=== PATIENT | male | born 1955 | race Caucasian/White ===

== ENCOUNTER 2021-01-15 00:51 | Inpatient (IN) ==
--- NOTE | 2021-01-15 01:37 | Emergency Department Note ---
Impression & Plan Hypoxia, Pneumonia due to 2019 novel coronavirus, Hyperglycemia due to diabetes mellitus Admit to the [facility] service ED Provider Note NAME: AFIA SORIANO AGE: 65 SEX: M ARRIVES VIA: Ambulance INFORMANT: Patient ED PROVIDER(S): Lou Marie DO CHIEF COMPLAINT: Shortness of breath and weakness PLAN: Disposition: Admit to the [facility] service Condition: Guarded MEDICAL DECISION MAKING: This is a 65-year-old male patient who had increasing shortness of breath, weight loss and weakness over the past 1 week. Patient's daughter and granddaughter are diagnosed with Covid. He is unvaccinated. The patient has bilateral pneumonias consistent with a viral pneumonia. He is Covid positive. He is hypoxic. Patient was given IV Decadron Triage Nursing notes reviewed and agree with them. Prior medical records reviewed Vital Signs: reviewed and remarkable for hypoxia and hypertension and tachycar gladys Differential diagnosis: Pneumonia, COVID-19, respiratory failure ER treatment provided: Oral Tylenol IV Decadron IV insulin Diagnostics interpreted by me: ECG: Normal sinus rhythm at [address] segment elevation or signs of ischemia. There is no ectopy. Cardiac Monitoring: Sinus tachycardia at 102 Laboratory studies: See below Imaging studies: As per my interpretation Portable chest x-ray: Bilateral patchy infiltrates consistent with Covid pneumonia HPI: 65/M arrives for evaluation of shortness of breath and weakness. The patient describes worsening symptoms over the past 1 week. His daughter and granddaughter had been diagnosed with COVID-19. He is unvaccinated. Patient describes developing a fever, chills and a cough 3 days ago he has had increasing body aches, weakness and shakiness. He had nausea and vomiting with decreased oral intake and a weight loss of 15 pounds over the past 7 to 10 days. ROS: See above HPI for pertinent positives & negatives. A total of 10 systems reviewed and were otherwise negative. PAST MEDICAL HISTORY:[id number] diabetes and hypertension PAST SURGICAL HISTORY:See Below FAMILY HISTORY:See Below SOCIAL HISTORY:Lives with his , daughter and granddaughter HOME MEDICATIONS:See list ALLERGIES:None VITALS:See Below PHYSICAL EXAMINATION: HEENT: Head - normocephalic and atraumatic. Pupils are equal, round, and reactive to light. Extraocular eye muscles are intact, and sclera are anicteric. Nose - moist nasal mucosa without discharge. Mouth - moist buccal mucosa. Oropharynx is nonerythematous and there is no tonsillar exudate or saravanan a noted. Neck: Supple; no JVD, nuchal rigidity, cervical lymphadenopathy, or auscultated bruits. Heart: Tachycardic rate and regular rhythm. There is a normal S1 and S2 with no murmurs, clicks, or gallops appreciated. Lungs: Diminished breath sounds at both bases with no wheezing Abdomen: Soft, completely nontender, nondistended, with good bowel sounds. There are no palpable pulsatile masses or hepatosplenomegaly. There is no guarding, rigidity, or rebound noted. Extremities: No evidence of cyanosis, clubbing, or edema. There are easily palpable peripheral pulses. Skin: Hot to the touch; he has a scabbed over lesion on the left distal tib-fib area with some surrounding erythema ED COURSE: Times/Reassessments: 0105: The patient was evaluated in room A 9. I donned complete PPE as there was concern for COVID-19. A septic protocol was performed. Laboratory studies were drawn as above. The patient was placed on supplemental oxygen as his O2 saturation was only 84% on room air. A portable chest x-ray was performed as described above. The patient was given Tylenol by mouth for his fever. An order was placed for continuous cardiac monitoring. Patient was in sinus tachycardia at 102. A twelve-lead EKG was obtained. The patient was given 10 mg of IV Decadron. The patient was significantly hyperglycemic and given 10 units of IV insulin. I have personally spent greater than 60 minutes of critical care time in the direct management of this patient. This includes bedside care, interpretation of diagnostic studies, and testing, discussion with consultants, patient, and family members, and other required patient management activities. This 60 minutes is in excess of all separately billable procedures. Lou Marie DO Past Med/Surg History Medical History (Updated 01/17/21 @ 15:07 by Lou Marie DO) Diabetes mellitus Hypertension Morbid obesity with BMI of 40.0-44.9, adult Social History Smoking Status: Former smoker Hx Alcohol Use: No Hx Substance Use: No Preferred Language: Maori Communication Ability: Effective Carriage Setter Required: No Beliefs That Will Affect Care: None marital status: Current Living Situation: Spouse Feels Safe at Home: Yes Assistive Devices: Oxygen - Continuous Allergies Allergies Allergy/AdvReac Type Severity Reaction Status Date / Time Unable to Assess Allergy Unverified 01/15/21 01:56 Home Meds Home Medications Medication Instructions Recorded Confirmed amlodipine 5 mg tablet 5 mg PO DAILY 01/15/21 01/15/21 empagliflozin 25 mg tablet 25 mg PO DAILY 01/15/21 01/15/21 (Jardiance) lisinopril 40 mg tablet 40 mg PO DAILY 01/15/21 01/15/21 metformin 500 mg tablet,extended 1,000 mg PO DAILY 01/15/21 01/15/21 release 24 hr Results & Data (ED) Vital Signs Vital Signs - 24 hr 01/15/21 00:57 01/15/21 01:21 01/15/21 01:30 Temperature 37.4 C Temperature Source Oral Pulse Rate 102 H 96 H 93 H Pulse Rate [Right Finger] Pulse Rate from SpO2 Sensor 95 H 94 H Respiratory Rate 24 23 25 H Respiratory Effort / Characteristics Spontaneous Grunting Labored Respiratory Depth Deep Respiratory Pattern Regular Blood Pressure 150/71 H 161/81 H Blood Pressure [Right Arm] Blood Pressure Mean 97 107 Blood Pressure Mean [Right Arm] Blood Pressure Position [Right Arm] Pulse Oximetry 84 L 93 93 Oxygen Delivery Method Room Air Oxygen Flow Rate Sepsis Recent Fever Within 48 Hours No Sepsis New/Unexplained Change in Mental Status No Sepsis Action Taken by Nursing No Action Required Oxygen Flow Rate - Titration Pulse Oximetry Post Tiitration 01/15/21 01:36 01/15/21 01:37 01/15/21 02:00 Temperature Temperature Source Pulse Rate 97 H Pulse Rate [Right Finger] Pulse Rate from SpO2 Sensor 97 H Respiratory Rate 29 H Respiratory Effort / Characteristics Spontaneous Labored Respiratory Depth Respiratory Pattern Blood Pressure Blood Pressure [Right Arm] Blood Pressure Mean Blood Pressure Mean [Right Arm] Blood Pressure Position [Right Arm] Pulse Oximetry 90 Oxygen Delivery Method Nasal Cannula Nasal Cannula Oxygen Flow Rate 0 4 4 Sepsis Recent Fever Within 48 Hours Sepsis New/Unexplained Change in Mental Status Sepsis Action Taken by Nursing Oxygen Flow Rate - Titration 4 Pulse Oximetry Post Tiitration 95 01/15/21 02:30 01/15/21 02:54 01/15/21 03:00 Temperature Temperature Source Pulse Rate 90 94 H Pulse Rate [Right Finger] Pulse Rate from SpO2 Sensor 87 93 H Respiratory Rate 31 H 24 Respiratory Effort / Characteristics Spontaneous Labored Respiratory Depth Respiratory Pattern Blood Pressure 159/80 H 141/74 H Blood Pressure [Right Arm] Blood Pressure Mean 106 96 Blood Pressure Mean [Right Arm] Blood Pressure Position [Right Arm] Pulse Oximetry 89 L 93 Oxygen Delivery Method Nasal Cannula Oxygen Flow Rate 4 5 5 Sepsis Recent Fever Within 48 Hours Sepsis New/Unexplained Change in Mental Status Sepsis Action Taken by Nursing Oxygen Flow Rate - Titration Pulse Oximetry Post Tiitration 01/15/21 03:20 01/15/21 03:30 01/15/21 04:00 Temperature Temperature Source Pulse Rate 95 H 93 H Pulse Rate [Right Finger] Pulse Rate from SpO2 Sensor 95 H 93 H Respiratory Rate 34 H 30 H Respiratory Effort / Characteristics Spontaneous Labored Respiratory Depth Respiratory Pattern Blood Pressure 155/82 H 163/91 H Blood Pressure [Right Arm] Blood Pressure Mean 106 115 Blood Pressure Mean [Right Arm] Blood Pressure Position [Right Arm] Pulse Oximetry 89 L 90 Oxygen Delivery Method Nasal Cannula Oxygen Flow Rate 5 Sepsis Recent Fever Within 48 Hours Sepsis New/Unexplained Change in Mental Status Sepsis Action Taken by Nursing Oxygen Flow Rate - Titration Pulse Oximetry Post Tiitration 01/15/21 04:30 01/15/21 05:00 01/15/21 05:30 Temperature Temperature Source Pulse Rate 91 H 98 H 96 H Pulse Rate [Right Finger] 90 Pulse Rate from SpO2 Sensor 92 H 98 H 68 Respiratory Rate 25 H 30 H 29 H Respiratory Effort / Characteristics Respiratory Depth Respiratory Pattern Blood Pressure 176/87 H 175/91 H 153/78 H Blood Pressure [Right Arm] 170/86 H Blood Pressure Mean 116 119 103 Blood Pressure Mean [Right Arm] 114 Blood Pressure Position [Right Arm] Lying Pulse Oximetry 91 90 92 Oxygen Delivery Method Oxymask Oxygen Flow Rate 7 Sepsis Recent Fever Within 48 Hours Sepsis New/Unexplained Change in Mental Status Sepsis Action Taken by Nursing Oxygen Flow Rate - Titration Pulse Oximetry Post Tiitration Laboratory Data Result diagrams: 01/17/21 06:21 01/17/21 06:21 Lab Results 01/15/21 01/15/21 01/15/21 Range/Units 01:09 01:09 01:09 WBC 5.54 (4.8-10.8) K/uL RBC 5.16 (4.7-6.1) M/uL Hgb 15.1 (14.0-18.0) g/dL Hct 45.5 (42-52) % MCV 88.2 (80-100) fL MCH 29.3 (25-34) pg MCHC 33.2 (32-36) g/dL RDW Std Deviation 45.5 (36.4-46.3) fL RDW Coeff of Carmela 14.0 (11.5-14.5) % Plt Count 171 (130-400) K/uL MPV 9.5 (7.4-10.4) fL Immature Gran % (Auto) 0.2 % Neut % (Auto) 75.4 % Lymph % (Auto) 10.5 % [place] % (Auto) 13.7 % Eos % (Auto) 0.0 % Baso % (Auto) 0.2 % Neut # (Auto) 4.18 (1.4-6.5) K/uL Lymph # (Auto) 0.58 L (1.2-3.4) K/uL [place] # (Auto) 0.76 H (0.11-0.59) K/uL Eos # (Auto) 0.00 (0-0.5) K/uL Baso # (Auto) 0.01 (0-0.2) K/uL Immature Gran # (Auto) 0.01 (0.00-0.02) K/uL PT 9.4 (9.0-12.0) Seconds INR 0.9 (0.9-1.1) APTT 29.5 (21.0-31.0) Seconds PTT Ratio 1.1 Sodium 136 (136-145) mmol/L Potassium 3.9 (3.5-5.1) mmol/L Chloride 104 (98-107) mmol/L Carbon Dioxide 25 (21-32) mmol/L Anion Gap 7.0 (3-11) BUN 33 H (7-18) mg/dl Creatinine 1.12 (0.6-1.4) mg/dl Est Cr Clr Drug Dosing 84.1 ml/min Est GFR ( Amer) 79.5 ml/min Est GFR (Non-Af Amer) 68.6 ml/min BUN/Creatinine Ratio 29.8 H (10-20) Glucose 329 H* (70-99) mg/dl POC Glucose (70-99) mg/dl Lactate (0.4-2.0) mmol/L Calcium 9.0 (8.5-10.1) mg/dl Magnesium 2.2 (1.8-2.4) mg/dl Total Bilirubin 0.4 (0.2-1) mg/dl AST 37 (15-37) U/L ALT 31 (12-78) U/L Alkaline Phosphatase 77 (45-117) U/L Troponin I < 0.015 (0-0.045) ng/ml Total Protein 7.6 (6.4-8.2) gm/dl Albumin 3.2 L (3.4-5.0) gm/dl Globulin 4.4 H (2.5-4.0) gm/dl Albumin/Globulin Ratio 0.7 L (0.9-2) Beta-Hydroxybutyric Acd (0.2-2.81) mg/dl COVID-19 Eval Order SARS-CoV-2 (PCR) (Negative) 01/15/21 01/15/21 01/15/21 Range/Units 01:37 01:37 03:05 WBC (4.8-10.8) K/uL RBC (4.7-6.1) M/uL Hgb (14.0-18.0) g/dL Hct (42-52) % MCV (80-100) fL MCH (25-34) pg MCHC (32-36) g/dL RDW Std Deviation (36.4-46.3) fL RDW Coeff of Carmela (11.5-14.5) % Plt Count (130-400) K/uL MPV (7.4-10.4) fL Immature Gran % (Auto) % Neut % (Auto) % Lymph % (Auto) % [place] % (Auto) % Eos % (Auto) % Baso % (Auto) % Neut # (Auto) (1.4-6.5) K/uL Lymph # (Auto) (1.2-3.4) K/uL [place] # (Auto) (0.11-0.59) K/uL Eos # (Auto) (0-0.5) K/uL Baso # (Auto) (0-0.2) K/uL Immature Gran # (Auto) (0.00-0.02) K/uL PT (9.0-12.0) Seconds INR (0.9-1.1) APTT (21.0-31.0) Seconds PTT Ratio Sodium (136-145) mmol/L Potassium (3.5-5.1) mmol/L Chloride (98-107) mmol/L Carbon Dioxide (21-32) mmol/L Anion Gap (3-11) BUN (7-18) mg/dl Creatinine (0.6-1.4) mg/dl Est Cr Clr Drug Dosing ml/min Est GFR ( Amer) ml/min Est GFR (Non-Af Amer) ml/min BUN/Creatinine Ratio (10-20) Glucose (70-99) mg/dl POC Glucose (70-99) mg/dl Lactate 1.6 (0.4-2.0) mmol/L Calcium (8.5-10.1) mg/dl Magnesium (1.8-2.4) mg/dl Total Bilirubin (0.2-1) mg/dl AST (15-37) U/L ALT (12-78) U/L Alkaline Phosphatase (45-117) U/L Troponin I (0-0.045) ng/ml Total Protein (6.4-8.2) gm/dl Albumin (3.4-5.0) gm/dl Globulin (2.5-4.0) gm/dl Albumin/Globulin Ratio (0.9-2) Beta-Hydroxybutyric Acd (0.2-2.81) mg/dl COVID-19 Eval Order Covid19 at [facility] SARS-CoV-2 (PCR) POSITIVE A* (Negative) 01/15/21 Range/Units 05:32 WBC (4.8-10.8) K/uL RBC (4.7-6.1) M/uL Hgb (14.0-18.0) g/dL Hct (42-52) % MCV (80-100) fL MCH (25-34) pg MCHC (32-36) g/dL RDW Std Deviation (36.4-46.3) fL RDW Coeff of Carmela (11.5-14.5) % Plt Count (130-400) K/uL MPV (7.4-10.4) fL Immature Gran % (Auto) % Neut % (Auto) % Lymph % (Auto) % [place] % (Auto) % Eos % (Auto) % Baso % (Auto) % Neut # (Auto) (1.4-6.5) K/uL Lymph # (Auto) (1.2-3.4) K/uL [place] # (Auto) (0.11-0.59) K/uL Eos # (Auto) (0-0.5) K/uL Baso # (Auto) (0-0.2) K/uL Immature Gran # (Auto) (0.00-0.02) K/uL PT (9.0-12.0) Seconds INR (0.9-1.1) APTT (21.0-31.0) Seconds PTT Ratio Sodium (136-145) mmol/L Potassium (3.5-5.1) mmol/L Chloride (98-107) mmol/L Carbon Dioxide (21-32) mmol/L Anion Gap (3-11) BUN (7-18) mg/dl Creatinine (0.6-1.4) mg/dl Est Cr Clr Drug Dosing ml/min Est GFR ( Amer) ml/min Est GFR (Non-Af Amer) ml/min BUN/Creatinine Ratio (10-20) Glucose (70-99) mg/dl POC Glucose 193 H (70-99) mg/dl Lactate (0.4-2.0) mmol/L Calcium (8.5-10.1) mg/dl Magnesium (1.8-2.4) mg/dl Total Bilirubin (0.2-1) mg/dl AST (15-37) U/L ALT (12-78) U/L Alkaline Phosphatase (45-117) U/L Troponin I (0-0.045) ng/ml Total Protein (6.4-8.2) gm/dl Albumin (3.4-5.0) gm/dl Globulin (2.5-4.0) gm/dl Albumin/Globulin Ratio (0.9-2) Beta-Hydroxybutyric Acd (0.2-2.81) mg/dl COVID-19 Eval Order SARS-CoV-2 (PCR) (Negative) Administered Medications Amlodipine Besylate (Amlodipine Besylate 5 Mg Tab) 5 mg PO DAILY LEIF Stop: 02/16/21 08:59 Last Admin: 01/17/21 08:34 Dose: 5 mg Documented by: [id number] Benzonatate (Benzonatate 100 Mg Capsule) 100 mg PO TID LEIF Stop: 02/14/21 20:59 Last Admin: 01/17/21 12:29 Dose: 100 mg Documented by: [id number] Admin: 01/17/21 08:34 Dose: 100 mg Documented by: [id number] Admin: 01/16/21 20:12 Dose: 100 mg Documented by: [id number] Admin: 01/16/21 13:41 Dose: 100 mg Documented by: [id number] Admin: 01/16/21 08:41 Dose: 100 mg Documented by: [id number] Admin: 01/15/21 21:25 Dose: 100 mg Documented by: [id number] Enoxaparin Sodium (Enoxaparin Inj 60 Mg/0.6 Ml Syr) 60 mg SQ Q12H LEIF Stop: 02/14/21 08:59 Last Admin: 01/17/21 08:35 Dose: 60 mg Documented by: [id number] Admin: 01/16/21 20:12 Dose: 60 mg Documented by: [id number] Admin: 01/16/21 08:41 Dose: 60 mg Documented by: [id number] Admin: 01/15/21 20:26 Dose: 60 mg Documented by: [id number] Admin: 01/15/21 09:58 Dose: 60 mg Documented by: [id number] Guaifenesin (Guaifenesin 600 Mg Tabcr) 1,200 mg PO Q12 LEIF Stop: 02/14/21 08:59 Last Admin: 01/17/21 08:35 Dose: 1,200 mg Documented by: [id number] Admin: 01/16/21 20:11 Dose: 1,200 mg Documented by: [id number] Admin: 01/16/21 08:42 Dose: 1,200 mg Documented by: [id number] Admin: 01/15/21 20:25 Dose: 1,200 mg Documented by: [id number] Admin: 01/15/21 09:59 Dose: 1,200 mg Documented by: [id number] Dexamethasone 6 mg/ Syringe 1.5 mls @ 1 mls/min IV Q24H LEIF Stop: 02/15/21 03:59 Last Admin: 01/17/21 03:08 Dose: 1 mls/min Documented by: [id number] Admin: 01/16/21 04:16 Dose: 1 mls/min Documented by: [id number] Azithromycin 500 mg/ Dextrose 255 mls @ 125 mls/hr IV Q24H LEIF Stop: 01/22/21 08:59 Last Infusion: 01/17/21 13:09 Dose: 0 mls/hr Documented by: [id number] Admin: 01/17/21 10:48 Dose: 125 mls/hr Documented by: [id number] Infusion: 01/16/21 12:14 Dose: 0 mls/hr Documented by: [id number] Admin: 01/16/21 09:55 Dose: 125 mls/hr Documented by: [id number] Infusion: 01/15/21 13:28 Dose: 0 mls/hr Documented by: [id number] Admin: 01/15/21 10:47 Dose: 125 mls/hr Documented by: [id number] Ceftriaxone Sodium 2,000 mg/ (Dextrose) 70 mls @ 100 mls/hr IV DAILY LEIF; Protocol Stop: 01/22/21 08:59 Last Infusion: 01/17/21 09:41 Dose: 0 mls/hr Documented by: [id number] Admin: 01/17/21 08:33 Dose: 100 mls/hr Documented by: [id number] Infusion: 01/16/21 09:43 Dose: 0 mls/hr Documented by: [id number] Admin: 01/16/21 08:55 Dose: 100 mls/hr Documented by: [id number] Infusion: 01/15/21 10:46 Dose: 0 mls/hr Documented by: [id number] Admin: 01/15/21 09:57 Dose: 100 mls/hr Documented by: [id number] Remdesivir 100 mg/ Sodium (Chloride) 250 mls @ 250 mls/hr IV Q24H LEIF; Protocol Stop: 01/19/21 12:59 Last Infusion: 01/17/21 13:58 Dose: 0 mls/hr Documented by: [id number] Admin: 01/17/21 12:30 Dose: 250 mls/hr Documented by: [id number] Infusion: 01/16/21 13:42 Dose: 0 mls/hr Documented by: [id number] Admin: 01/16/21 12:14 Dose: 250 mls/hr Documented by: [id number] Insulin Aspart (Insulin Aspart 100 Units/Ml 3 Ml Pen) 0 units SC ACHS LEIF Stop: 02/14/21 08:39 Last Admin: 01/17/21 12:28 Dose: 12 units Documented by: [id number] Cosigned by: [id number] Admin: 01/17/21 08:36 Dose: Not Given Documented by: [id number] Admin: 01/16/21 21:14 Dose: 3 units Documented by: [id number] Cosigned by: [id number] Admin: 01/16/21 18:05 Dose: 6 units Documented by: [id number] Cosigned by: [id number] Admin: 01/16/21 12:57 Dose: 8 units Documented by: [id number] Cosigned by: [id number] Admin: 01/16/21 08:40 Dose: 6 units Documented by: [id number] Cosigned by: [id number] Admin: 01/15/21 20:17 Dose: 2 units Documented by: [id number] Cosigned by: [id number] Admin: 01/15/21 17:51 Dose: 6 units Documented by: [id number] Cosigned by: [id number] Admin: 01/15/21 13:30 Dose: 9 units Documented by: [id number] Cosigned by: [id number] Admin: 01/15/21 09:55 Dose: 8 units Documented by: [id number] Cosigned by: [id number] Insulin Glargine (Insulin Glargine Solostar 100 Units/Ml 3 Ml Pen) 15 units SC BID LEIF Stop: 02/14/21 11:29 Last Admin: 01/17/21 08:37 Dose: 15 units Documented by: [id number] Cosigned by: [id number] Admin: 01/16/21 21:14 Dose: 15 units Documented by: [id number] Cosigned by: [id number] Admin: 01/16/21 08:42 Dose: 15 units Documented by: [id number] Cosigned by: [id number] Admin: 01/15/21 20:18 Dose: 15 units Documented by: [id number] Cosigned by: [id number] Admin: 01/15/21 13:29 Dose: 15 units Documented by: [id number] Cosigned by: [id number] Lisinopril (Lisinopril 40 Mg Tab) 40 mg PO DAILY LEIF Stop: 02/14/21 08:59 Last Admin: 01/17/21 08:34 Dose: 40 mg Documented by: [id number] Admin: 01/16/21 08:44 Dose: 40 mg Documented by: [id number] Admin: 01/15/21 09:59 Dose: 40 mg Documented by: [id number] Sodium Chloride (Sodium Chloride 0.9% 10ml Flush) 30 ml IV DAILY@0800 [facility] Stop: 01/19/21 08:01 Last Admin: 01/17/21 08:36 Dose: 30 ml Documented by: [id number] Admin: 01/16/21 08:55 Dose: 30 ml Documented by: [id number] Admin: 01/15/21 20:11 Dose: Not Given Documented by: [id number] Sodium Chloride (Sodium Chloride 0.9% 10ml Flush) 30 ml IV Q24H [facility] Stop: 01/20/21 12:01 Last Admin: 01/17/21 12:30 Dose: 30 ml Documented by: [id number] Admin: 01/16/21 12:57 Dose: 30 ml Documented by: [id number] Vitamin D (Cholecalciferol 1,000 Units 25 Mcg Tab) 5,[address] [facility] Stop: 02/14/21 08:59 Last Admin: 01/17/21 08:34 Dose: 5,000 units Documented by: [id number] Admin: 01/16/21 08:41 Dose: 5,000 units Documented by: [id number] Admin: 01/15/21 09:57 Dose: 5,000 units Documented by: [id number] Zinc Sulfate (Zinc Sulfate 220 Mg Capsule) [address] [facility] Stop: 02/14/21 08:59 Last Admin: 01/17/21 08:34 Dose: 220 mg Documented by: [id number] Admin: 01/16/21 08:44 Dose: 220 mg Documented by: [id number] Admin: 01/15/21 10:00 Dose: 220 mg Documented by: [id number] Discontinued Medications Acetaminophen (Acetaminophen 500 Mg Tab) 1,000 mg PO NOW STA Stop: 01/15/21 07:52 Last Admin: 01/15/21 08:06 Dose: 1,000 mg Documented by: [id number] Albuterol (Albuterol Hfa 8 Gm Inhaler) 2 puffs INH QID [facility] Stop: 02/14/21 08:59 Last Admin: 01/15/21 09:58 Dose: Not Given Documented by: [id number] Dexamethasone (Dexamethasone Sod Inj 4 Mg/Ml Vial) 10 mg IV NOW STA Stop: 01/15/21 04:03 Last Admin: 01/15/21 04:32 Dose: 10 mg Documented by: [id number] Diltiazem HCl (Diltiazem Hcl 30 Mg Tab) 30 mg PO QID [facility] Stop: 02/14/21 08:59 Last Admin: 01/15/21 14:17 Dose: Not Given Documented by: [id number] Admin: 01/15/21 09:58 Dose: 30 mg Documented by: [id number] Remdesivir 200 mg/ Sodium (Chloride) 250 mls @ 125 mls/hr IV ONE STA; Protocol Stop: 01/15/21 07:32 Last Infusion: 01/15/21 10:11 Dose: 0 mls/hr Documented by: [id number] Admin: 01/15/21 06:13 Dose: 125 mls/hr Documented by: [id number] Potassium Chloride/Sodium Chloride (Normal Saline W/20 Meq Kcl) 20 meq in 1,000 mls @ 60 mls/hr IV .[id number] [facility] Stop: 02/14/21 08:59 Last Infusion: 01/16/21 12:14 Dose: 0 mls/hr Documented by: [id number] Admin: 01/16/21 01:57 Dose: 60 mls/hr Documented by: [id number] Infusion: 01/16/21 01:57 Dose: 60 mls/hr Documented by: [id number] Admin: 01/15/21 10:01 Dose: 60 mls/hr Documented by: [id number] Furosemide 20 mg/ Syringe 2 mls @ 4 mls/min IV ONE ONE Stop: 01/17/21 08:31 Last Admin: 01/17/21 10:48 Dose: 4 mls/min Documented by: [id number] Insulin Human Regular (Novolin-R Insulin Per Unit Charge) 10 units IV NOW STA Stop: 01/15/21 04:36 Last Admin: 01/15/21 04:59 Dose: 10 units Documented by: [id number] Cosigned by: [id number] Menthol (Cough Drop (Sugar Free) Checo 24 Checo/1 Box) Confirm Administered Dose 24 checo BUCCAL .STK-MED ONE Stop: 01/16/21 16:28 Last Admin: 01/16/21 16:39 Dose: 24 checo Documented by: [id number] Menthol (Cough Drop (Sugar Free) Checo 24 Checo/1 Box) 1 checo BUCCAL NOW STA Stop: 01/17/21 03:20 Last Admin: 01/17/21 03:25 Dose: 1 checo Documented by: [id number] Imaging Data Radiologist's Impression: Chest X-Ray 01/15/21 01:29 XR chest 1V portable HISTORY: SEPSIS COMPARISON: None. FINDINGS: There are low lung volumes. The heart is normal in size. There scattered patchy bilateral airspace opacities. There is mild interstitial thickening. No pleural effusions. No pneumothorax. IMPRESSION: Scattered patchy bilateral airspace opacities. This favors a viral pneumonia. ACT 112: Negative or not required by law. Electronically signed by: Hugh Love M.D. 01/15/2021 8:01 AM Discharge Plan Visit Data Chief Complaint: Shortness of Breath/Dyspnea Stated Complaint: SOB,FEVER,CHILLS ED Provider: Lou Marie Discharge Problem: Hypoxia, Pneumonia due to 2019 novel coronavirus, Hyperglycemia due to diabetes mellitus Patient Disposition: Admitted As Inpatient Discharge Instructions Interventions: ED Discharge Assessment Last Done: 01/15/21 08:08
[2021-01-15 01:59] LABS: Basophils # (auto) 0.01 K/uL (0-0.2); Basophils % (auto) 0.2 %; Hematocrit (blood only) 45.5 % (42-52); Hemoglobin 15.1 g/dL (14.0-18.0); Immature Granulocytes # (auto) 0.01 K/uL (0.00-0.02); Immature Granulocytes % (auto) 0.2 %; Lymphocytes # (auto) 0.58 K/uL (1.2-3.4); Lymphocytes % (auto) 10.5 %; Mean Corpuscular Hemoglobin 29.3 pg (25-34); Mean Corpuscular Hgb Conc 33.2 g/dL (32-36); Mean Corpuscular Volume 88.2 fL (80-100); Mean Platelet Volume 9.5 fL (7.4-10.4); Monocytes # (auto) 0.76 K/uL (0.11-0.59); Monocytes % (auto) 13.7 %; Neutrophils # (auto) 4.18 K/uL (1.4-6.5); Neutrophils % (auto) 75.4 %; Platelet Count 171 K/uL (130-400); RDW Standard Deviation 45.5 fL (36.4-46.3); Red Blood Count 5.16 M/uL (4.7-6.1); White Blood Count 5.54 K/uL (4.8-10.8)
[2021-01-15 02:16] LABS: INR 0.9 (0.9-1.1); Partial Thromboplastin Ratio 1.1; Partial Thromboplastin Time 29.5 Seconds (21.0-31.0); Prothrombin Time 9.4 Seconds (9.0-12.0)
[2021-01-15 02:34] LABS: Alanine Aminotransferase 31 U/L (12-78); Albumin Globulin Ratio 0.7 (0.9-2); Albumin Level 3.2 gm/dl (3.4-5.0); Alkaline Phosphatase 77 U/L (45-117); Aspartate Aminotransferase 37 U/L (15-37); BUN Creatinine Ratio 29.8 (10-20); Bilirubin,Total 0.4 mg/dl (0.2-1); Blood Urea Nitrogen 33 mg/dl (7-18); Carbon Dioxide 25 mmol/L (21-32); Chloride 104 mmol/L (98-107); Creatinine Clr Calc Pharmacy 84.1 ml/min; Est GFR (African American) 79.5 ml/min; Est GFR (Non-African American) 68.6 ml/min; Globulin 4.4 gm/dl (2.5-4.0); Glucose 329 mg/dl (70-99); Magnesium 2.2 mg/dl (1.8-2.4); Potassium 3.9 mmol/L (3.5-5.1); Sodium 136 mmol/L (136-145); Total Protein 7.6 gm/dl (6.4-8.2); Troponin I < 0.015 ng/ml (0-0.045)
[2021-01-15] MEDS ORDERED: DEXAMETHASONE SOD INJ 4 MG/ML VIAL IV STA (04:02)
[2021-01-15] MEDS ORDERED: NovoLIN-R INSULIN PER UNIT CHARGE IV STA (04:35)
[2021-01-15] MEDS ORDERED: REMDESIVIR 200 MG in SODIUM CHLORIDE 0.9% 210 ML IV STA ×2 (05:33→05:36)
--- NOTE | 2021-01-15 05:34 | History & Physical Report ---
Date of Service January 15, 2021 Assessment & Plan (1) Pneumonia due to COVID-19 virus: Plan: Pneumonia with hypoxia- He was given dexamethasone 10 mg IV by the ED. Dexamethasone 6 mg IV every morning Remdesivir IV per protocol Azithromycin 500 mg IV daily ceftriaxone 2 g IV every 24 hours Guaifenesin extended release 1200 mg p.o. twice daily Vitamin D 5000 international units p.o. daily Zinc sulfate turn 20 mg p.o. daily Proventil HFA 2 puffs 4 times daily, and every 2 hours as needed DuoNebs every 2 hours as needed Oxygen mask at 7 L/min, titrated to keep pulse ox 92 to 94% BiPAP as needed (2) Hypoxia: Plan: See above (3) Diabetes mellitus: Plan: Hold Jardiance and Metformin. Glucose was 329 on admission labs in the ED He received 10 units of regular insulin IV. Follow-up glucose was 193. Placed on Accu-Cheks before meals and at bedtime with NovoLog coverage per scale Patient may require dosing with long acting insulin if sugars rise while on dexamethasone Check hemoglobin A1c (4) Hypertension: Plan: Hold amlodipine 5 mg daily Continue lisinopril [address] on Cardizem 30 mg p.o. 4 times daily, due to increased resting heart rate in the 90s (5) Morbid obesity with BMI of 40.0-44.9, adult: History of Present Illness Chief Complaint: The patient presents to the emergency department with complaint of shortness of breath and dyspnea on exertion that began 3 days ago, and was preceded by decreased appetite and sensation of feeling full about 6 to 7 days ago Primary Care Provider: Candy Buck The patient is a 65-year old male the past history of hypertension, diabetes mellitus and morbid obesity who presents to the emergency department with the above symptoms. He also reports an unspecified weight loss during this time of decreased appetite. He denies loss of taste or smell. 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 Work-up in the emergency department included the follo wing abnormalities: Pulse ox on room air 84%, that increased to 93% on 7 L oxymask. Chest x-ray was consistent with multifocal pneumonia Glucose was 329, potassium 3.9, albumin 3.2. Patient was COVID-19 positive. Patient did not receive vaccine for COVID-19 He received from the ED dexamethasone 10 mg IV, and regular insulin 10 units IV. Allergies Allergy/AdvReac Type Severity Reaction Status Date / Time Unable to Assess Allergy Unverified 01/15/21 01:56 Home Medications Medication Instructions Recorded Confirmed Type amlodipine 5 mg tablet 5 mg PO DAILY 01/15/21 01/15/21 History empagliflozin 25 mg tablet 25 mg PO DAILY 01/15/21 01/15/21 History (Jardiance) lisinopril 40 mg tablet 40 mg PO DAILY 01/15/21 01/15/21 History metformin 500 mg tablet,extended 1,000 mg PO DAILY 01/15/21 01/15/21 History release 24 hr Past Med/Surg History Medical History (Updated 01/15/21 @ 06:02 by Sukhdeep Chong MD) Diabetes mellitus Hypertension Morbid obesity with BMI of 40.0-44.9, adult Social History Smoking Status: Never smoker Feels Safe at Home: Yes Review of Systems Review of Systems: The patient denies palpitations, lower extremity swelling, sore throat, fevers, chills, sweats, weight change, nausea, vomiting, diarrhea , constipation, blood in urine or stool, dysuria, urinary frequency or urgency, memory loss, loss of consciousness, rash, abnormal bruising or bleeding, imbalance, focal weakness, numbness or tingling in arms or legs, back or neck pain, or night sweats. The review of systems is otherwise negative other than for that already noted above, and at least 10 systems have been reviewed. Physical Exam Physical Exam: The patient is awake, alert and oriented 3, well developed and well nourished, normocephalic and atraumatic, lying in bed and in no acute distress except during cough spells HEENT--PERRL, EOMI, mucous membranes and oropharynx dry. Neck--supple. No JVD. No bruits. Thyroid normal, trachea midline, no adenopathy. Heart--normal S1 and S2. No murmurs, rubs or gallops. Lungs--coarse breath sounds bilaterally. Mild respiratory distress during active coughing spells. No accessory muscle use. Abdomen--normal bowel sounds and soft. Nontender. Nondistended. Morbidly obese Extremities--no cyanosis or clubbing. No edema. Dermatologic--normal skin turgor, normal color, no abnormal lymph nodes, no rash. Neurologic--cranial nerves II through XII grossly intact. Rheumatologic--limited exam Psychiatric--normal affect. Results & Data Results & Data ([facility]) Vital Signs (Past 12 Hours) Vital Signs Temp Pulse Pulse Resp BP BP Pulse Ox 01/15/21 05:00 90 20 170/86 H 93 01/15/21 03:00 94 H 24 141/74 H 93 01/15/21 02:30 90 31 H 159/80 H 89 L 01/15/21 02:00 97 H 29 H 90 01/15/21 01:30 93 H 25 H 161/81 H 93 01/15/21 01:21 96 H 23 93 01/15/21 00:57 99.3 F 102 H 24 150/71 H 84 L Laboratory Results Laboratory Results WBC 5.54 K/uL (4.8-10.8) 01/15/21 01:09 RBC 5.16 M/uL (4.7-6.1) 01/15/21 01:09 Hgb 15.1 g/dL (14.0-18.0) 01/15/21 01:09 Hct 45.5 % (42-52) 01/15/21 01:09 MCV 88.2 fL (80-100) 01/15/21 01:09 MCH 29.3 pg (25-34) 01/15/21 01:09 MCHC 33.2 g/dL (32-36) 01/15/21 01:09 RDW Std Deviation 45.5 fL (36.4-46.3) 01/15/21 01:09 RDW Coeff of Carmela 14.0 % (11.5-14.5) 01/15/21 01:09 Plt Count 171 K/uL (130-400) 01/15/21 01:09 MPV 9.5 fL (7.4-10.4) 01/15/21 01:09 Immature Gran % (Auto) 0.2 % 01/15/21 01:09 Neut % (Auto) 75.4 % 01/15/21 01:09 Lymph % (Auto) 10.5 % 01/15/21 01:09 Cannon % (Auto) 13.7 % 01/15/21 01:09 Eos % (Auto) 0.0 % 01/15/21 01:09 Baso % (Auto) 0.2 % 01/15/21 01:09 Neut # (Auto) 4.18 K/uL (1.4-6.5) 01/15/21 01:09 Lymph # (Auto) 0.58 K/uL (1.2-3.4) L 01/15/21 01:09 Cannon # (Auto) 0.76 K/uL (0.11-0.59) H 01/15/21 01:09 Eos # (Auto) 0.00 K/uL (0-0.5) 01/15/21 01:09 Baso # (Auto) 0.01 K/uL (0-0.2) 01/15/21 01:09 Immature Gran # (Auto) 0.01 K/uL (0.00-0.02) 01/15/21 01:09 PT 9.4 Seconds (9.0-12.0) 01/15/21 01:09 INR 0.9 (0.9-1.1) 01/15/21 01:09 APTT 29.5 Seconds (21.0-31.0) 01/15/21 01:09 PTT Ratio 1.1 01/15/21 01:09 Sodium 136 mmol/L (136-145) 01/15/21 01:09 Potassium 3.9 mmol/L (3.5-5.1) 01/15/21 01:09 Chloride 104 mmol/L (98-107) 01/15/21 01:09 Carbon Dioxide 25 mmol/L (21-32) 01/15/21 01:09 Anion Gap 7.0 (3-11) 01/15/21 01:09 BUN 33 mg/dl (7-18) H 01/15/21 01:09 Creatinine 1.12 mg/dl (0.6-1.4) 01/15/21 01:09 Est Cr Clr Drug Dosing 84.1 ml/min 01/15/21 01:09 Est GFR ( Amer) 79.5 ml/min 01/15/21 01:09 Est GFR (Non-Af Amer) 68.6 ml/min 01/15/21 01:09 BUN/Creatinine Ratio 29.8 (10-20) H 01/15/21 01:09 Glucose 329 mg/dl (70-99) H* 01/15/21 01:09 POC Glucose 193 mg/dl (70-99) H 01/15/21 05:32 Lactate 1.6 mmol/L (0.4-2.0) 01/15/21 03:05 Calcium 9.0 mg/dl (8.5-10.1) 01/15/21 01:09 Magnesium 2.2 mg/dl (1.8-2.4) 01/15/21 01:09 Total Bilirubin 0.4 mg/dl (0.2-1) 01/15/21 01:09 AST 37 U/L (15-37) 01/15/21 01:09 ALT 31 U/L (12-78) 01/15/21 01:09 Alkaline Phosphatase 77 U/L (45-117) 01/15/21 01:09 Troponin I < 0.015 ng/ml (0-0.045) 01/15/21 01:09 Total Protein 7.6 gm/dl (6.4-8.2) 01/15/21 01:09 Albumin 3.2 gm/dl (3.4-5.0) L 01/15/21 01:09 Globulin 4.4 gm/dl (2.5-4.0) H 01/15/21 01:09 Albumin/Globulin Ratio 0.7 (0.9-2) L 01/15/21 01:09 Beta-Hydroxybutyric Acd mg/dl (0.2-2.81) 01/15/21 01:09 COVID-19 Eval Order Covid19 at [facility] 01/15/21 01:37 SARS-CoV-2 (PCR) POSITIVE (Negative) A* 01/15/21 01:37 Code Status & VTE Plan Code Status Full code VTE Prophylaxis Plan VTE Prophylaxis will be ordered: Yes PG Care Time/CCT Total # of Minutes Spent Total Time Spent with Patient: Total time spent is greater than 50% in coordination of care (as documented) at patient's floor/unit and/or counseling patient: Coding Level of Care Code 43687 Initial Inpt Care Lvl 3 Diagnoses Pneumonia due to COVID-19 virus U07.1; J12.82 Hypoxia R09.02 Diabetes mellitus E11.9 Hypertension I10 Morbid obesity with BMI of 40.0-44.9, adult E66.01; Z68.41
[2021-01-15] MEDS ORDERED: ACETAMINOPHEN 500 MG TAB PO STA (07:51)
--- NOTE | 2021-01-15 08:02 | XRay Report ---
XR chest 1V portable HISTORY: SEPSIS COMPARISON: None. FINDINGS: There are low lung volumes. The heart is normal in size. There scattered patchy bilateral a irspace opacities. There is mild interstitial thickening. No pleural effusions. No pneumothorax. IMPRESSION: Scattered patchy bilateral airspace opacities. This favors a viral pneumonia. ACT 112: Negative or not required by law. Electronically signed by: Hugh Love M.D. 01/15/2021 8:01 AM
[2021-01-15] MEDS ORDERED: ALBUT/IPRATROP 3MG/0.5MG NEB 3 ML VIAL NEB PRN ×2 (08:40→10:15)
[2021-01-15] MEDS ORDERED: ONDANSETRON INJ 2 MG/ML 2 ML VIAL IV PRN (08:40)
[2021-01-15] MEDS ORDERED: GLUCOSE 10 TABS/TUBE PO PRN (08:40)
[2021-01-15] MEDS ORDERED: NITROGLYCERIN SL 0.4 MG/TAB TAB SL PRN (08:40)
[2021-01-15] MEDS ORDERED: GLUCOSE 40% GEL 15 GM TUBE PO PRN (08:40)
[2021-01-15] MEDS ORDERED: CARBOHYDRATES FOR HYPOGLYCEMIA PO PRN (08:40)
[2021-01-15] MEDS ORDERED: GLUCAGON FOR INJ 1 MG VIAL SQ PRN (08:40)
[2021-01-15] MEDS ORDERED: ALBUTEROL HFA 8 GM INHALER INH PRN ×2 (08:49→10:15)
[2021-01-15] MEDS ORDERED: ALBUTEROL HFA 8 GM INHALER INH SCH (09:00)
[2021-01-15] MEDS: INSULIN ASPART 100 UNITS/ML 3 ML PEN SC SCH ×4 (09:55→20:17)
[2021-01-15] MEDS: CHOLECALCIFEROL 1,000 UNITS 25 MCG TAB PO SCH (09:57)
[2021-01-15] MEDS: cefTRIAXone SODIUM 2,000 MG in DEXTROSE 5% 50 ML IV SCH (09:57)
[2021-01-15] MEDS: ENOXAPARIN INJ 60 MG/0.6 ML SYR SQ SCH ×2 (09:58→20:26)
[2021-01-15] MEDS: dilTIAZem HCL 30 MG TAB PO SCH ×2 (09:58→14:17)
[2021-01-15] MEDS: guaiFENesin 600 MG TABCR PO SCH ×2 (09:59→20:25)
[2021-01-15] MEDS: lisinopril 40 MG TAB PO SCH (09:59)
[2021-01-15] MEDS: ZINC SULFATE 220 MG CAPSULE PO SCH (10:00)
[2021-01-15] MEDS: NSS + 20MEQ KCL 20 MEQ/1,000 ML BAG IV SCH (10:01)
[2021-01-15] MEDS: AZITHROMYCIN 500 MG in DEXTROSE 5% 250 ML IV SCH (10:47)
[2021-01-15] MEDS: INSULIN GLARGINE SOLOSTAR 100 UNITS/ML 3 ML PEN SC SCH ×2 (13:29→20:18)
--- NOTE | 2021-01-15 16:24 | Electrocardiogram Report ---
Test Reason : Blood Pressure : / mmHG Vent. Rate : 099 BPM Atrial Rate : 099 BPM P-R Int : 162 ms QRS Dur : 088 ms QT Int : 336 ms P-R-T Axes : 050 045 037 degrees QTc Int : 431 ms Normal sinus rhythm Normal ECG No previous ECGs available Confirmed by Kaveh Ronquillo ([id number]) on 01/15/2021 4:24:42 PM Referred By: REFERRED SELF Confirmed By:Kaveh Ronquillo
[2021-01-15] MEDS: SODIUM CHLORIDE 0.9% 10ML FLUSH IV SCH (20:11)
[2021-01-15] MEDS: BENZONATATE 100 MG CAPSULE PO SCH (21:25)
[2021-01-16] MEDS: NSS + 20MEQ KCL 20 MEQ/1,000 ML BAG IV SCH (01:57)
[2021-01-16] MEDS: dexAMETHasone 6 MG in SYRINGE 0 ML IV SCH (04:16)
[2021-01-16 06:15] LABS: Basophils # (auto) 0.01 K/uL (0-0.2); Basophils % (auto) 0.2 %; Hematocrit (blood only) 43.2 % (42-52); Hemoglobin 14.4 g/dL (14.0-18.0); Immature Granulocytes # (auto) 0.03 K/uL (0.00-0.02); Immature Granulocytes % (auto) 0.5 %; Lymphocytes # (auto) 0.83 K/uL (1.2-3.4); Lymphocytes % (auto) 12.7 %; Mean Corpuscular Hemoglobin 28.9 pg (25-34); Mean Corpuscular Hgb Conc 33.3 g/dL (32-36); Mean Corpuscular Volume 86.7 fL (80-100); Mean Platelet Volume 9.6 fL (7.4-10.4); Monocytes # (auto) 0.79 K/uL (0.11-0.59); Neutrophils % (auto) 74.6 %; Platelet Count 167 K/uL (130-400); RDW Coefficient of Variation 13.9 % (11.5-14.5); RDW Standard Deviation 43.6 fL (36.4-46.3); Red Blood Count 4.98 M/uL (4.7-6.1); White Blood Count 6.56 K/uL (4.8-10.8)
[2021-01-16 07:02] LABS: Albumin Globulin Ratio 0.7 (0.9-2); Albumin Level 2.7 gm/dl (3.4-5.0); BUN Creatinine Ratio 34.7 (10-20); Bilirubin,Total 0.4 mg/dl (0.2-1); Creatinine Clr Calc Pharmacy 126.3 ml/min; Est GFR (African American) 111.6 ml/min; Est GFR (Non-African American) 96.3 ml/min; Globulin 4.1 gm/dl (2.5-4.0); Magnesium 1.9 mg/dl (1.8-2.4); Potassium 4.2 mmol/L (3.5-5.1); Total Protein 6.8 gm/dl (6.4-8.2)
[2021-01-16 07:50] LABS: Estimated Average Glucose 220 mg/dl; Hemoglobin A1C 9.3 % (4.5-5.6)
[2021-01-16] MEDS: INSULIN ASPART 100 UNITS/ML 3 ML PEN SC SCH ×4 (08:40→21:14)
[2021-01-16] MEDS: CHOLECALCIFEROL 1,000 UNITS 25 MCG TAB PO SCH (08:41)
[2021-01-16] MEDS: ENOXAPARIN INJ 60 MG/0.6 ML SYR SQ SCH ×2 (08:41→20:12)
[2021-01-16] MEDS: BENZONATATE 100 MG CAPSULE PO SCH ×3 (08:41→20:12)
[2021-01-16] MEDS: INSULIN GLARGINE SOLOSTAR 100 UNITS/ML 3 ML PEN SC SCH ×2 (08:42→21:14)
[2021-01-16] MEDS: guaiFENesin 600 MG TABCR PO SCH ×2 (08:42→20:11)
[2021-01-16] MEDS: lisinopril 40 MG TAB PO SCH (08:44)
[2021-01-16] MEDS: ZINC SULFATE 220 MG CAPSULE PO SCH (08:44)
[2021-01-16] MEDS: cefTRIAXone SODIUM 2,000 MG in DEXTROSE 5% 50 ML IV SCH (08:55)
[2021-01-16] MEDS: SODIUM CHLORIDE 0.9% 10ML FLUSH IV SCH ×2 (08:55→12:57)
[2021-01-16] MEDS: AZITHROMYCIN 500 MG in DEXTROSE 5% 250 ML IV SCH (09:55)
--- NOTE | 2021-01-16 11:50 | Hospitalist Progress Note ---
Date of Service January 16, 2021 Assessment & Plan (1) Pneumonia due to COVID-19 virus: Plan: Dexamethasone 6 mg IV daily x 10 days, day 2 Remdesivir IV daily, day 2 Azithromycin 500 mg IV daily, will give 5 days stop Ceftriaxone Guaifenesin extended release 1200 mg p.o. twice daily Vitamin D 5000 international units p.o. daily Zinc sulfate turn 20 mg p.o. daily Proventil HFA 2 puffs PRN oxygen is 5L today, no distress, likely give Lasix 20mg IV tomorrow (2) Hypoxia: Plan: stable on 5L NC, no distress or accessory muscle use encouraged him to lay on his side or prone (3) Diabetes mellitus: Plan: Lantus 15 units BID Novolog with CF of 20 and carb ratio of 8 monitor for hyper and hypoglycemia (4) Hypertension: Plan: resume Norvasc Continue lisinopril 40 mg daily (5) Morbid obesity with BMI of 40.0-44.9, adult: Admission and Anticipated Discharge Date Admission Date: January 15, 2021 Subjective patient says he feels better than yesterday, breathing easier cough is subtle eating okay, not great, is drinking, will stop IV fluids sugars are running low 200s no fever/chills/sweats Review of Systems Review of Systems: All systems reviewed & are unremarkable except as noted in Subjective Constitutional: no fever, no chills, no sweats, no fatigue and no weakness Respiratory: + cough, + dyspnea and + dyspnea on exertion Cardiovascular: no chest pain and no edema Gastrointestinal: no abdominal pain, no nausea, no vomiting, no constipation and no diarrhea/loose stools Physical Exam Physical Exam: General: well developed, well nourished, obese male, ill appearing Neck: supple, trachea midline, normal thyroid Lungs: slight crackles in bases, normal respiratory effort, no accessory muscle use, no distress Heart: regular S1 and S2, no murmur, peripheral pulses normal, capillary refill normal, no edema Abdomen: soft, NT, ND, + BS, no hepatomegaly, normal to percussion Extremities: normal in appearance, no cyanosis, no petechiae, strength is 5/5 bilaterally Neuro: awake, cooperative, moves all extremities, no focal motor deficits, CN II-XII intact, sensation in extremities intact, normal speech Skin: warm, dry, no rash, normal turgor Psych: Awake, alert oriented x 3, euthymic affect Results & Data Results & Data ([facility]) Vital Signs (Past 12 Hours) Vital Signs Temp Pulse Resp BP Pulse Ox 01/16/21 11:27 36.7 C 87 19 146/79 H 92 01/16/21 07:32 36.7 C 94 H 20 150/77 H 91 01/16/21 03:41 36.8 C 82 20 167/77 H 90 01/15/21 23:56 78 19 138/73 94 Laboratory Results Laboratory Results - last 24 hr 01/16/21 01/16/21 01/16/21 05:43 05:43 05:43 WBC 6.56 RBC 4.98 Hgb 14.4 Hct 43.2 MCV 86.7 MCH 28.9 MCHC 33.3 RDW Std Deviation 43.6 RDW Coeff of Carmela 13.9 Plt Count 167 MPV 9.6 Immature Gran % (Auto) 0.5 Neut % (Auto) 74.6 Lymph % (Auto) 12.7 [place] % (Auto) 12.0 Eos % (Auto) 0.0 Baso % (Auto) 0.2 Neut # (Auto) 4.90 Lymph # (Auto) 0.83 L [place] # (Auto) 0.79 H Eos # (Auto) 0.00 Baso # (Auto) 0.01 Immature Gran # (Auto) 0.03 H Sodium 139 Potassium 4.2 Chloride 110 H Carbon Dioxide 22 Anion Gap 7.0 BUN 26 H Creatinine 0.75 D Est Cr Clr Drug Dosing 126.3 Est GFR ( Amer) 111.6 Est GFR (Non-Af Amer) 96.3 BUN/Creatinine Ratio 34.7 H Glucose 206 H POC Glucose Estimat Average Glucose 220 Hemoglobin A1c 9.3 H Calcium 9.0 Magnesium 1.9 Total Bilirubin 0.4 AST 31 ALT 26 Alkaline Phosphatase 63 Total Protein 6.8 Albumin 2.7 L Globulin 4.1 H Albumin/Globulin Ratio 0.7 L 01/16/21 01/16/21 01/16/21 07:34 11:30 16:33 WBC RBC Hgb Hct MCV MCH MCHC RDW Std Deviation RDW Coeff of Carmela Plt Count MPV Immature Gran % (Auto) Neut % (Auto) Lymph % (Auto) [place] % (Auto) Eos % (Auto) Baso % (Auto) Neut # (Auto) Lymph # (Auto) [place] # (Auto) Eos # (Auto) Baso # (Auto) Immature Gran # (Auto) Sodium Potassium Chloride Carbon Dioxide Anion Gap BUN Creatinine Est Cr Clr Drug Dosing Est GFR ( Amer) Est GFR (Non-Af Amer) BUN/Creatinine Ratio Glucose POC Glucose 213 H 251 H 199 H Estimat Average Glucose Hemoglobin A1c Calcium Magnesium Total Bilirubin AST ALT Alkaline Phosphatase Total Protein Albumin Globulin Albumin/Globulin Ratio Medications Administered Current Inpatient Medications Acetaminophen (Acetaminophen 325 Mg Tab) 650 mg PO Q4H PRN PRN Reason: Pain or Fever Stop: 02/14/21 08:39 Albuterol (Albuterol Hfa 8 Gm Inhaler) 2 puffs INH Q2R PRN PRN Reason: Shortness Of Breath Stop: 02/14/21 08:48 Albuterol (Albut/Ipratrop 3mg/0.5mg Neb 3 Ml Vial) 3 ml NEB Q2R PRN PRN Reason: dyspnea Stop: 02/14/21 08:39 Benzonatate (Benzonatate 100 Mg Capsule) 100 mg PO TID LEIF Stop: 02/14/21 20:59 Last Admin: 01/16/21 20:12 Dose: 100 mg Documented by: Dextrose (Dextrose 50% 50 Ml Syringe) 25 - 50 ml IV UD PRN; Protocol PRN Reason: Hypoglycemia Protocol Stop: 02/14/21 08:39 Enoxaparin Sodium (Enoxaparin Inj 60 Mg/0.6 Ml Syr) 60 mg SQ Q12H LEIF Stop: 02/14/21 08:59 Last Admin: 01/16/21 20:12 Dose: 60 mg Documented by: Glucagon (Glucagon For Inj 1 Mg Vial) 1 mg SQ UD PRN; Protocol PRN Reason: Hypoglycemia Protocol Stop: 02/14/21 08:39 Glucose (Glucose 10 Tabs/Tube) 4 - 8 tabs PO UD PRN; Protocol PRN Reason: Hypoglycemia Protocol Stop: 02/14/21 08:39 Glucose (Glucose 40% Gel 15 Gm Tube) 15 - 30 gm PO UD PRN; Protocol PRN Reason: Hypoglycemia Protocol Stop: 02/14/21 08:39 Guaifenesin (Guaifenesin 600 Mg Tabcr) 1,200 mg PO Q12 LEIF Stop: 02/14/21 08:59 Last Admin: 01/16/21 20:11 Dose: 1,200 mg Documented by: Dexamethasone 6 mg/ Syringe 1.5 mls @ 1 mls/min IV Q24H [facility] Stop: 02/15/21 03:59 Last Admin: 01/16/21 04:16 Dose: 1 mls/min Documented by: Azithromycin 500 mg/ Dextrose 255 mls @ 125 mls/hr IV Q24H [facility] Stop: 01/22/21 08:59 Last Infusion: 01/16/21 12:14 Dose: Infused Documented by: Ceftriaxone Sodium 2,000 mg/ (Dextrose) 70 mls @ 100 mls/hr IV DAILY [facility]; Protocol Stop: 01/22/21 08:59 Last Infusion: 01/16/21 09:43 Dose: Infused Documented by: Remdesivir 100 mg/ Sodium (Chloride) 250 mls @ 250 mls/hr IV Q24H [facility]; Protocol Stop: 01/19/21 12:59 Last Infusion: 01/16/21 13:42 Dose: Infused Documented by: Insulin Aspart (Insulin Aspart 100 Units/Ml 3 Ml Pen) 0 units SC ACHS [facility] Stop: 02/14/21 08:39 Last Admin: 01/16/21 18:05 Dose: 6 units Documented by: Insulin Glargine (Insulin Glargine Solostar 100 Units/Ml 3 Ml Pen) 15 units SC BID [facility] Stop: 02/14/21 11:29 Last Admin: 01/16/21 08:42 Dose: 15 units Documented by: Lisinopril (Lisinopril 40 Mg Tab) 40 mg PO DAILY [facility] Stop: 02/14/21 08:59 Last Admin: 01/16/21 08:44 Dose: 40 mg Documented by: Miscellaneous (Carbohydrates For Hypoglycemia ) 15 - 30 gm PO UD PRN PRN Reason: Hypoglycemia Protocol Stop: 02/14/21 08:39 Nitroglycerin (Nitroglycerin Sl 0.4 Mg/Tab Tab) 0.4 mg SL UD PRN PRN Reason: Chest Pain Stop: 02/14/21 08:39 Ondansetron HCl (Ondansetron Inj 2 Mg/Ml 2 Ml Vial) 4 mg IV Q6H PRN PRN Reason: Nausea Stop: 02/14/21 08:39 Sodium Chloride (Sodium Chloride 0.9% 10ml Flush) 30 ml IV DAILY@0800 [facility] Stop: 01/19/21 08:01 Last Admin: 01/16/21 08:55 Dose: 30 ml Documented by: Sodium Chloride (Sodium Chloride 0.9% 10ml Flush) 30 ml IV Q24H [facility] Stop: 01/20/21 12:01 Last Admin: 01/16/21 12:57 Dose: 30 ml Documented by: Vitamin D (Cholecalciferol 1,000 Units 25 Mcg Tab) 5,000 units PO QAM [facility] Stop: 02/14/21 08:59 Last Admin: 01/16/21 08:41 Dose: 5,000 units Documented by: Zinc Sulfate (Zinc Sulfate 220 Mg Capsule) 220 mg PO QAM [facility] Stop: 02/14/21 08:59 Last Admin: 01/16/21 08:44 Dose: 220 mg Documented by: PG Care Time/CCT Total # of Minutes Spent Total Time Spent with Patient: Total time spent is greater than 50% in coordination of care (as documented) at patient's floor/unit and/or counseling patient: Coding Level of Care Code 81958 Subseq Hosp Care Lvl 3 Diagnoses Pneumonia due to COVID-19 virus U07.1; J12.82 Hypoxia R09.02 Diabetes mellitus E11.9 Hypertension I10 Morbid obesity with BMI of 40.0-44.9, adult E66.01; Z68.41
[2021-01-16] MEDS: REMDESIVIR 100 MG in SODIUM CHLORIDE 0.9% 230 ML IV SCH (12:14)
[2021-01-16] MEDS ORDERED: COUGH DROP (SUGAR FREE) LOZ 24 LOZ/1 BOX BUCCAL ONE (16:27)
[2021-01-17] MEDS: dexAMETHasone 6 MG in SYRINGE 0 ML IV SCH (03:08)
[2021-01-17] MEDS ORDERED: COUGH DROP (SUGAR FREE) LOZ 24 LOZ/1 BOX BUCCAL STA (03:19)
[2021-01-17 06:48] LABS: Basophils # (auto) 0.01 K/uL (0-0.2); Basophils % (auto) 0.2 %; Hematocrit (blood only) 44.6 % (42-52); Hemoglobin 14.7 g/dL (14.0-18.0); Immature Granulocytes # (auto) 0.01 K/uL (0.00-0.02); Immature Granulocytes % (auto) 0.2 %; Lymphocytes # (auto) 0.82 K/uL (1.2-3.4); Lymphocytes % (auto) 13.1 %; Mean Corpuscular Hemoglobin 29.3 pg (25-34); Mean Corpuscular Volume 88.8 fL (80-100); Mean Platelet Volume 9.7 fL (7.4-10.4); Monocytes # (auto) 0.74 K/uL (0.11-0.59); Monocytes % (auto) 11.9 %; Neutrophils # (auto) 4.66 K/uL (1.4-6.5); Neutrophils % (auto) 74.6 %; Platelet Count 186 K/uL (130-400); RDW Coefficient of Variation 13.9 % (11.5-14.5); RDW Standard Deviation 45.1 fL (36.4-46.3); Red Blood Count 5.02 M/uL (4.7-6.1); White Blood Count 6.24 K/uL (4.8-10.8)
[2021-01-17 07:17] LABS: Albumin Level 2.5 gm/dl (3.4-5.0); BUN Creatinine Ratio 36.2 (10-20); Calcium 8.8 mg/dl (8.5-10.1); Creatinine Clr Calc Pharmacy 150.3 ml/min; Est GFR (African American) 119.9 ml/min; Est GFR (Non-African American) 103.4 ml/min; Magnesium 1.9 mg/dl (1.8-2.4); Potassium 3.9 mmol/L (3.5-5.1)
[2021-01-17 07:20] LABS: Albumin Globulin Ratio 0.6 (0.9-2); Bilirubin,Total 0.3 mg/dl (0.2-1); Total Protein 6.5 gm/dl (6.4-8.2)
--- NOTE | 2021-01-17 08:21 | XRay Report ---
XR chest 1V portable HISTORY: hypoxia COMPARISON: Chest 01/15/2021. FINDINGS: No pneumothorax. No pleural effusions. The heart is top normal in size. Multifocal bilatera l airspace opacities persist. IMPRESSION: Multifocal bilateral airspace opacities, unchanged. This favors a viral pneumonia. ACT 112: Negative or not required by law. Electronically signed by: Hugh Love M.D. 01/17/2021 8:20 AM
[2021-01-17] MEDS ORDERED: FUROSEMIDE 20 MG in SYRINGE 0 ML IV ONE (08:30)
[2021-01-17] MEDS: cefTRIAXone SODIUM 2,000 MG in DEXTROSE 5% 50 ML IV SCH (08:33)
[2021-01-17] MEDS: ZINC SULFATE 220 MG CAPSULE PO SCH (08:34)
[2021-01-17] MEDS: lisinopril 40 MG TAB PO SCH (08:34)
[2021-01-17] MEDS: amLODIPine BESYLATE 5 MG TAB PO SCH (08:34)
[2021-01-17] MEDS: CHOLECALCIFEROL 1,000 UNITS 25 MCG TAB PO SCH (08:34)
[2021-01-17] MEDS: BENZONATATE 100 MG CAPSULE PO SCH ×3 (08:34→20:00)
[2021-01-17] MEDS: guaiFENesin 600 MG TABCR PO SCH ×2 (08:35→20:00)
[2021-01-17] MEDS: ENOXAPARIN INJ 60 MG/0.6 ML SYR SQ SCH ×2 (08:35→20:18)
[2021-01-17] MEDS: SODIUM CHLORIDE 0.9% 10ML FLUSH IV SCH ×2 (08:36→12:30)
[2021-01-17] MEDS: INSULIN ASPART 100 UNITS/ML 3 ML PEN SC SCH ×4 (08:36→20:18)
[2021-01-17] MEDS: INSULIN GLARGINE SOLOSTAR 100 UNITS/ML 3 ML PEN SC SCH ×2 (08:37→20:37)
[2021-01-17 08:58] LABS: C Reactive Protein 4.79 mg/dl (0-0.29)
--- NOTE | 2021-01-17 10:12 | Hospitalist Progress Note ---
Date of Service January 17, 2021 Assessment & Plan (1) Pneumonia due to COVID-19 virus: Plan: Dexamethasone 6 mg IV daily x 10 days, day 3 Remdesivir IV daily, day 3 Azithromycin 500 mg IV daily, will give 5 days, day 3 stop Ceftriaxone Guaifenesin extended release 1200 mg p.o. twice daily Vitamin D 5000 international units p.o. daily Zinc sulfate turn 20 mg p.o. daily Proventil HFA 2 puffs PRN oxygen is up to 15L mask today give Lasix 20mg IV CRP is 4.7 today (2) Hypoxia: Plan: up to 15L mask this morning, saturations 88-93% will order Vapotherm, have him lay on his side give Lasix 20mg IV discussed placing a espinoza, he refuses (3) Diabetes mellitus: Plan: Lantus 15 units BID Novolog with CF of 20 and carb ratio of 8 monitor for hyper and hypoglycemia, no issues (4) Hypertension: Plan: resume Norvasc 5mg daily Continue lisinopril 40 mg daily BP better today (5) Morbid obesity with BMI of 40.0-44.9, adult: Admission and Anticipated Discharge Date Admission Date: January 15, 2021 Subjective patient's oxygen requirements up to 15L mask this morning he said he had a rough night, was very short of breath, he says he feels better now, can take a deep breath again CXR is unchanged this morning, multifocal opacities favoring viral pneumonia CRP is 4.79 this morning, Cr and K are stable will give Lasix 20mg IV to promote negative fluid balance, order Vapotherm discussed that he needs to lay prone, he says he cannot lay prone due to his size and hip discussed that he then needs to lay lateral position discussed that he is at risk of getting even worse and needing intubation, want to try to avoid that if possible no fever, + chills, + diarrhea, no chest pain will check him this afternoon Review of Systems Review of Systems: All systems reviewed & are unremarkable except as noted in Subjective Physical Exam Physical Exam: General: well developed, well nourished, obese male, ill appearing Neck: supple, trachea midline, normal thyroid Lungs: slight crackles in bases, + tachypnea, + accessory muscle use (belly breathing), no wheezing Heart: regular S1 and S2, no murmur, peripheral pulses normal, capillary refill normal, no edema Abdomen: soft, NT, ND, + BS, no hepatomegaly, normal to percussion Extremities: normal in appearance, no cyanosis, no petechiae, strength is 5/5 bilaterally Neuro: awake, cooperative, moves all extremities, no focal motor deficits, CN II-XII intact, sensation in extremities intact, normal speech Skin: warm, dry, no rash, normal turgor Psych: Awake, alert oriented x 3, euthymic affect Results & Data Results & Data ([facility]) Vital Signs (Past 12 Hours) Vital Signs Temp Pulse Pulse Pulse Resp BP Pulse Ox 01/17/21 08:00 74 01/17/21 07:28 36.4 C L 81 27 H 128/62 91 01/17/21 06:10 95 01/17/21 03:13 36.5 C 88 24 175/85 H 90 01/17/21 00:29 30 H 89 L 01/16/21 23:59 78 01/16/21 23:47 36.8 C 78 24 160/81 H 88 L Laboratory Results Laboratory Results - last 24 hr 01/16/21 01/16/21 01/16/21 11:30 16:33 20:33 WBC RBC Hgb Hct MCV MCH MCHC RDW Std Deviation RDW Coeff of Carmela Plt Count MPV Immature Gran % (Auto) Neut % (Auto) Lymph % (Auto) [place] % (Auto) Eos % (Auto) Baso % (Auto) Neut # (Auto) Lymph # (Auto) [place] # (Auto) Eos # (Auto) Baso # (Auto) Immature Gran # (Auto) Sodium Potassium Chloride Carbon Dioxide Anion Gap BUN Creatinine Est Cr Clr Drug Dosing Est GFR ( Amer) Est GFR (Non-Af Amer) BUN/Creatinine Ratio Glucose POC Glucose 251 H 199 H 218 H Calcium Magnesium Total Bilirubin AST ALT Alkaline Phosphatase C-Reactive Protein NT-Pro-B Natriuret Pep Total Protein Albumin Globulin Albumin/Globulin Ratio 01/17/21 01/17/21 01/17/21 06:21 06:21 07:30 WBC 6.24 RBC 5.02 Hgb 14.7 Hct 44.6 MCV 88.8 MCH 29.3 MCHC 33.0 RDW Std Deviation 45.1 RDW Coeff of Carmela 13.9 Plt Count 186 MPV 9.7 Immature Gran % (Auto) 0.2 Neut % (Auto) 74.6 Lymph % (Auto) 13.1 [place] % (Auto) 11.9 Eos % (Auto) 0.0 Baso % (Auto) 0.2 Neut # (Auto) 4.66 Lymph # (Auto) 0.82 L [place] # (Auto) 0.74 H Eos # (Auto) 0.00 Baso # (Auto) 0.01 Immature Gran # (Auto) 0.01 Sodium 140 Potassium 3.9 Chloride 111 H Carbon Dioxide 24 Anion Gap 5.0 BUN 23 H Creatinine 0.63 Est Cr Clr Drug Dosing 150.3 Est GFR ( Amer) 119.9 Est GFR (Non-Af Amer) 103.4 BUN/Creatinine Ratio 36.2 H Glucose 133 H POC Glucose 134 H Calcium 8.8 Magnesium 1.9 Total Bilirubin 0.3 AST 27 ALT 23 Alkaline Phosphatase 61 C-Reactive Protein NT-Pro-B Natriuret Pep Total Protein 6.5 Albumin 2.5 L Globulin 4.0 Albumin/Globulin Ratio 0.6 L 01/17/21 08:28 WBC RBC Hgb Hct MCV MCH MCHC RDW Std Deviation RDW Coeff of Carmela Plt Count MPV Immature Gran % (Auto) Neut % (Auto) Lymph % (Auto) [place] % (Auto) Eos % (Auto) Baso % (Auto) Neut # (Auto) Lymph # (Auto) [place] # (Auto) Eos # (Auto) Baso # (Auto) Immature Gran # (Auto) Sodium Potassium Chloride Carbon Dioxide Anion Gap BUN Creatinine Est Cr Clr Drug Dosing Est GFR ( Amer) Est GFR (Non-Af Amer) BUN/Creatinine Ratio Glucose POC Glucose Calcium Magnesium Total Bilirubin AST ALT Alkaline Phosphatase C-Reactive Protein 4.79 H NT-Pro-B Natriuret Pep 160 Total Protein Albumin Globulin Albumin/Globulin Ratio Medications Administered Current Inpatient Medications Acetaminophen (Acetaminophen 325 Mg Tab) 650 mg PO Q4H PRN PRN Reason: Pain or Fever Stop: 02/14/21 08:39 Albuterol (Albuterol Hfa 8 Gm Inhaler) 2 puffs INH Q2R PRN PRN Reason: Shortness Of Breath Stop: 02/14/21 08:48 Albuterol (Albut/Ipratrop 3mg/0.5mg Neb 3 Ml Vial) 3 ml NEB Q2R PRN PRN Reason: dyspnea Stop: 02/14/21 08:39 Amlodipine Besylate (Amlodipine Besylate 5 Mg Tab) 5 mg PO DAILY [facility] Stop: 02/16/21 08:59 Last Admin: 01/17/21 08:34 Dose: 5 mg Documented by: Benzonatate (Benzonatate 100 Mg Capsule) 100 mg PO TID LEIF Stop: 02/14/21 20:59 Last Admin: 01/17/21 08:34 Dose: 100 mg Documented by: Dextrose (Dextrose 50% 50 Ml Syringe) 25 - 50 ml IV UD PRN; Protocol PRN Reason: Hypoglycemia Protocol Stop: 02/14/21 08:39 Enoxaparin Sodium (Enoxaparin Inj 60 Mg/0.6 Ml Syr) 60 mg SQ Q12H [facility] Stop: 02/14/21 08:59 Last Admin: 01/17/21 08:35 Dose: 60 mg Documented by: Glucagon (Glucagon For Inj 1 Mg Vial) 1 mg SQ UD PRN; Protocol PRN Reason: Hypoglycemia Protocol Stop: 02/14/21 08:39 Glucose (Glucose 10 Tabs/Tube) 4 - 8 tabs PO UD PRN; Protocol PRN Reason: Hypoglycemia Protocol Stop: 02/14/21 08:39 Glucose (Glucose 40% Gel 15 Gm Tube) 15 - 30 gm PO UD PRN; Protocol PRN Reason: Hypoglycemia Protocol Stop: 02/14/21 08:39 Guaifenesin (Guaifenesin 600 Mg Tabcr) 1,200 mg PO Q12 [facility] Stop: 02/14/21 08:59 Last Admin: 01/17/21 08:35 Dose: 1,200 mg Documented by: Dexamethasone 6 mg/ Syringe 1.5 mls @ 1 mls/min IV Q24H [facility] Stop: 02/15/21 03:59 Last Admin: 01/17/21 03:08 Dose: 1 mls/min Documented by: Azithromycin 500 mg/ Dextrose 255 mls @ 125 mls/hr IV Q24H [facility] Stop: 01/22/21 08:59 Last Infusion: 01/16/21 12:14 Dose: Infused Documented by: Ceftriaxone Sodium 2,000 mg/ (Dextrose) 70 mls @ 100 mls/hr IV DAILY LEIF; Protocol Stop: 01/22/21 08:59 Last Infusion: 01/17/21 09:41 Dose: Infused Documented by: Remdesivir 100 mg/ Sodium (Chloride) 250 mls @ 250 mls/hr IV Q24H [facility]; Protocol Stop: 01/19/21 12:59 Last Infusion: 01/16/21 13:42 Dose: Infused Documented by: Insulin Aspart (Insulin Aspart 100 Units/Ml 3 Ml Pen) 0 units SC ACHS [facility] Stop: 02/14/21 08:39 Last Admin: 01/17/21 08:36 Dose: Not Given Documented by: Insulin Glargine (Insulin Glargine Solostar 100 Units/Ml 3 Ml Pen) 15 units SC BID [facility] Stop: 02/14/21 11:29 Last Admin: 01/17/21 08:37 Dose: 15 units Documented by: Lisinopril (Lisinopril 40 Mg Tab) 40 mg PO DAILY [facility] Stop: 02/14/21 08:59 Last Admin: 01/17/21 08:34 Dose: 40 mg Documented by: Miscellaneous (Carbohydrates For Hypoglycemia ) 15 - 30 gm PO UD PRN PRN Reason: Hypoglycemia Protocol Stop: 02/14/21 08:39 Nitroglycerin (Nitroglycerin Sl 0.4 Mg/Tab Tab) 0.4 mg SL UD PRN PRN Reason: Chest Pain Stop: 02/14/21 08:39 Ondansetron HCl (Ondansetron Inj 2 Mg/Ml 2 Ml Vial) 4 mg IV Q6H PRN PRN Reason: Nausea Stop: 02/14/21 08:39 Sodium Chloride (Sodium Chloride 0.9% 10ml Flush) 30 ml IV DAILY@0800 [facility] Stop: 01/19/21 08:01 Last Admin: 01/17/21 08:36 Dose: 30 ml Documented by: Sodium Chloride (Sodium Chloride 0.9% 10ml Flush) 30 ml IV Q24H [facility] Stop: 01/20/21 12:01 Last Admin: 01/16/21 12:57 Dose: 30 ml Documented by: Vitamin D (Cholecalciferol 1,000 Units 25 Mcg Tab) 5,000 units PO QAM [facility] Stop: 02/14/21 08:59 Last Admin: 01/17/21 08:34 Dose: 5,000 units Documented by: Zinc Sulfate (Zinc Sulfate 220 Mg Capsule) 220 mg PO QAM [facility] Stop: 02/14/21 08:59 Last Admin: 01/17/21 08:34 Dose: 220 mg Documented by: PG Care Time/CCT Total # of Minutes Spent Total Time Spent with Patient: Total time spent is greater than 50% in coordination of care (as documented) at patient's floor/unit and/or counseling patient: Coding Level of Care Code 61520 Subseq Hosp Care Lvl 3 Diagnoses Pneumonia due to COVID-19 virus U07.1; J12.82 Hypoxia R09.02 Diabetes mellitus E11.9 Hypertension I10 Morbid obesity with BMI of 40.0-44.9, adult E66.01; Z68.41
[2021-01-17] MEDS: AZITHROMYCIN 500 MG in DEXTROSE 5% 250 ML IV SCH (10:48)
[2021-01-17] MEDS: REMDESIVIR 100 MG in SODIUM CHLORIDE 0.9% 230 ML IV SCH (12:30)
[2021-01-17] MEDS ORDERED: COUGH DROP (SUGAR FREE) LOZ 24 LOZ/1 BOX BUCCAL ONE (18:13)
[2021-01-18 06:21] LABS: Basophils # (auto) 0.02 K/uL (0-0.2); Basophils % (auto) 0.3 %; Hematocrit (blood only) 45.1 % (42-52); Hemoglobin 15.1 g/dL (14.0-18.0); Immature Granulocytes # (auto) 0.05 K/uL (0.00-0.02); Immature Granulocytes % (auto) 0.7 %; Lymphocytes % (auto) 20.7 %; Mean Corpuscular Hemoglobin 28.9 pg (25-34); Mean Corpuscular Hgb Conc 33.5 g/dL (32-36); Mean Corpuscular Volume 86.2 fL (80-100); Mean Platelet Volume 9.2 fL (7.4-10.4); Monocytes # (auto) 0.95 K/uL (0.11-0.59); Monocytes % (auto) 14.1 %; Neutrophils # (auto) 4.33 K/uL (1.4-6.5); Neutrophils % (auto) 64.2 %; Platelet Count 206 K/uL (130-400); RDW Coefficient of Variation 13.6 % (11.5-14.5); RDW Standard Deviation 42.9 fL (36.4-46.3); Red Blood Count 5.23 M/uL (4.7-6.1); White Blood Count 6.75 K/uL (4.8-10.8)
[2021-01-18 06:57] LABS: Albumin Level 2.5 gm/dl (3.4-5.0); BUN Creatinine Ratio 37.5 (10-20); Calcium 8.7 mg/dl (8.5-10.1); Creatinine Clr Calc Pharmacy 150.4 ml/min; Est GFR (African American) 119.9 ml/min; Est GFR (Non-African American) 103.4 ml/min; Magnesium 1.8 mg/dl (1.8-2.4); Potassium 3.4 mmol/L (3.5-5.1)
[2021-01-18 06:59] LABS: Albumin Globulin Ratio 0.6 (0.9-2); Bilirubin,Total 0.4 mg/dl (0.2-1); C Reactive Protein 3.55 mg/dl (0-0.29); Globulin 4.1 gm/dl (2.5-4.0); Total Protein 6.6 gm/dl (6.4-8.2)
[2021-01-18] MEDS: CHOLECALCIFEROL 1,000 UNITS 25 MCG TAB PO SCH (08:00)
[2021-01-18] MEDS: FUROSEMIDE 20 MG in SYRINGE 0 ML IV SCH (08:00)
[2021-01-18] MEDS: BENZONATATE 100 MG CAPSULE PO SCH ×3 (08:00→21:01)
[2021-01-18] MEDS: INSULIN GLARGINE SOLOSTAR 100 UNITS/ML 3 ML PEN SC SCH ×2 (08:01→21:33)
[2021-01-18] MEDS: amLODIPine BESYLATE 5 MG TAB PO SCH (08:01)
[2021-01-18] MEDS: lisinopril 40 MG TAB PO SCH (08:01)
[2021-01-18] MEDS: ZINC SULFATE 220 MG CAPSULE PO SCH (08:01)
[2021-01-18] MEDS: guaiFENesin 600 MG TABCR PO SCH ×2 (08:01→21:01)
[2021-01-18] MEDS: ENOXAPARIN INJ 60 MG/0.6 ML SYR SQ SCH ×2 (08:02→21:01)
[2021-01-18] MEDS: INSULIN ASPART 100 UNITS/ML 3 ML PEN SC SCH ×4 (08:02→21:32)
[2021-01-18] MEDS: dexAMETHasone 6 MG in SYRINGE 0 ML IV SCH (08:02)
[2021-01-18] MEDS: POTASSIUM CHLORIDE CRTAB 20 MEQ TABCR PO SCH (11:01)
[2021-01-18] MEDS: AZITHROMYCIN 500 MG in DEXTROSE 5% 250 ML IV SCH (11:01)
[2021-01-18] MEDS: REMDESIVIR 100 MG in SODIUM CHLORIDE 0.9% 230 ML IV SCH (13:03)
[2021-01-18] MEDS: SODIUM CHLORIDE 0.9% 10ML FLUSH IV SCH (13:04)
--- NOTE | 2021-01-18 14:06 | Hospitalist Progress Note ---
Date of Service January 18, 2021 Assessment & Plan (1) Pneumonia due to COVID-19 virus: Plan: Dexamethasone 6 mg IV daily x 10 days, day 4 Remdesivir IV daily, day 4 Azithromycin 500 mg IV daily, will give 5 days, day 4 stopped Ceftriaxone Guaifenesin extended release 1200 mg p.o. twice daily Vitamin D 5000 international units p.o. daily Zinc sulfate turn 20 mg p.o. daily Proventil HFA 2 puffs PRN oxygen is up to 40L and 80% FiO2 no distress but he is tachypnic CRP is trending down, <4 today, no role for Tocilizumab sitting up in chair, flutter valve, incentive spirometer at high risk for deteriorating and needing ventilator, especially because he cannot lay prone (2) Hypoxia: Plan: up to 40L and 80% FiO2 give Lasix 20mg IV qAM for negative fluid balance if he fails vapotherm will try BIPAP (3) Diabetes mellitus: Plan: Lantus 15 units BID having hyperglycemia tighten Novolog with CF of 15 and carb ratio of 5 (4) Hypertension: Plan: resume Norvasc 5mg daily Continue lisinopril 40 mg daily BP better today (5) Morbid obesity with BMI of 40.0-44.9, adult: Admission and Anticipated Discharge Date Admission Date: January 15, 2021 Subjective patient on high flow, 40L and 80% FiO2, no distress, sitting up in a chair compliant with flutter valve, incentive spirometer responded well to Lasix 20mg IV, continue daily eating well, drinking well, no fever he again states that he cannot lay prone or on his side due to hip pain reviewed labs discussed plan with foundry operator of Systems Review of Systems: All systems reviewed & are unremarkable except as noted in Subjective Respiratory: + cough, + dyspnea and + dyspnea on exertion; no wheezing Cardiovascular: no chest pain and no edema Gastrointestinal: no abdominal pain, no nausea, no vomiting, no constipation and no diarrhea/loose stools Physical Exam Physical Exam: General: well developed, well nourished, obese male, ill appearing Neck: supple, trachea midline, normal thyroid Lungs: slight crackles in bases, + tachypnea, + accessory muscle use (belly breathing), no wheezing Heart: regular S1 and S2, no murmur, peripheral pulses normal, capillary refill normal, no edema Abdomen: soft, NT, ND, + BS, no hepatomegaly, normal to percussion Extremities: normal in appearance, no cyanosis, no petechiae, strength is 5/5 bilaterally Neuro: awake, cooperative, moves all extremities, no focal motor deficits, CN II-XII intact, sensation in extremities intact, normal speech Skin: warm, dry, no rash, normal turgor Psych: Awake, alert oriented x 3, euthymic affect Results & Data Results & Data ([facility]) Vital Signs (Past 12 Hours) Vital Signs Temp Pulse Pulse Resp BP Pulse Ox 01/18/21 11:25 90 19 95 01/18/21 11:13 36.6 C 86 19 115/69 95 01/18/21 08:17 36.5 C 98 H 24 135/78 90 01/18/21 07:40 89 24 89 L 01/18/21 07:10 81 01/18/21 03:25 36.7 C 84 20 122/55 L 90 01/18/21 03:14 82 12 89 L Laboratory Results Laboratory Results - last 24 hr 01/17/21 01/17/21 01/18/21 16:50 20:06 05:49 WBC 6.75 RBC 5.23 Hgb 15.1 Hct 45.1 MCV 86.2 MCH 28.9 MCHC 33.5 RDW Std Deviation 42.9 RDW Coeff of Carmela 13.6 Plt Count 206 MPV 9.2 Immature Gran % (Auto) 0.7 Neut % (Auto) 64.2 Lymph % (Auto) 20.7 [place] % (Auto) 14.1 Eos % (Auto) 0.0 Baso % (Auto) 0.3 Neut # (Auto) 4.33 Lymph # (Auto) 1.40 [place] # (Auto) 0.95 H Eos # (Auto) 0.00 Baso # (Auto) 0.02 Immature Gran # (Auto) 0.05 H Sodium Potassium Chloride Carbon Dioxide Anion Gap BUN Creatinine Est Cr Clr Drug Dosing Est GFR ( Amer) Est GFR (Non-Af Amer) BUN/Creatinine Ratio Glucose POC Glucose 234 H 234 H Calcium Magnesium Total Bilirubin AST ALT Alkaline Phosphatase C-Reactive Protein Total Protein Albumin Globulin Albumin/Globulin Ratio 01/18/21 01/18/21 01/18/21 05:49 07:40 11:35 WBC RBC Hgb Hct MCV MCH MCHC RDW Std Deviation RDW Coeff of Carmela Plt Count MPV Immature Gran % (Auto) Neut % (Auto) Lymph % (Auto) [place] % (Auto) Eos % (Auto) Baso % (Auto) Neut # (Auto) Lymph # (Auto) [place] # (Auto) Eos # (Auto) Baso # (Auto) Immature Gran # (Auto) Sodium 142 Potassium 3.4 L Chloride 111 H Carbon Dioxide 26 Anion Gap 5.0 BUN 24 H Creatinine 0.63 Est Cr Clr Drug Dosing 150.4 Est GFR ( Amer) 119.9 Est GFR (Non-Af Amer) 103.4 BUN/Creatinine Ratio 37.5 H Glucose 92 POC Glucose 104 H 250 H Calcium 8.7 Magnesium 1.8 Total Bilirubin 0.4 AST 25 ALT 23 Alkaline Phosphatase 65 C-Reactive Protein 3.55 H Total Protein 6.6 Albumin 2.5 L Globulin 4.1 H Albumin/Globulin Ratio 0.6 L Medications Administered Current Inpatient Medications Acetaminophen (Acetaminophen 325 Mg Tab) 650 mg PO Q4H PRN PRN Reason: Pain or Fever Stop: 02/14/21 08:39 Albuterol (Albuterol Hfa 8 Gm Inhaler) 2 puffs INH Q2R PRN PRN Reason: Shortness Of Breath Stop: 02/14/21 08:48 Albuterol (Albut/Ipratrop 3mg/0.5mg Neb 3 Ml Vial) 3 ml NEB Q2R PRN PRN Reason: dyspnea Stop: 02/14/21 08:39 Amlodipine Besylate (Amlodipine Besylate 5 Mg Tab) 5 mg PO DAILY [facility] Stop: 02/16/21 08:59 Last Admin: 01/18/21 08:01 Dose: 5 mg Documented by: Benzonatate (Benzonatate 100 Mg Capsule) 100 mg PO TID [facility] Stop: 02/14/21 20:59 Last Admin: 01/18/21 13:04 Dose: 100 mg Documented by: Dextrose (Dextrose 50% 50 Ml Syringe) 25 - 50 ml IV UD PRN; Protocol PRN Reason: Hypoglycemia Protocol Stop: 02/14/21 08:39 Enoxaparin Sodium (Enoxaparin Inj 60 Mg/0.6 Ml Syr) 60 mg SQ Q12H [facility] Stop: 02/14/21 08:59 Last Admin: 01/18/21 08:02 Dose: 60 mg Documented by: Glucagon (Glucagon For Inj 1 Mg Vial) 1 mg SQ UD PRN; Protocol PRN Reason: Hypoglycemia Protocol Stop: 02/14/21 08:39 Glucose (Glucose 10 Tabs/Tube) 4 - 8 tabs PO UD PRN; Protocol PRN Reason: Hypoglycemia Protocol Stop: 02/14/21 08:39 Glucose (Glucose 40% Gel 15 Gm Tube) 15 - 30 gm PO UD PRN; Protocol PRN Reason: Hypoglycemia Protocol Stop: 02/14/21 08:39 Guaifenesin (Guaifenesin 600 Mg Tabcr) 1,200 mg PO Q12 [facility] Stop: 02/14/21 08:59 Last Admin: 01/18/21 08:01 Dose: 1,200 mg Documented by: Dexamethasone 6 mg/ Syringe 1.5 mls @ 1 mls/min IV Q24H [facility] Stop: 02/15/21 03:59 Last Admin: 01/18/21 08:02 Dose: 1 mls/min Documented by: Azithromycin 500 mg/ Dextrose 255 mls @ 125 mls/hr IV Q24H [facility] Stop: 01/22/21 08:59 Last Infusion: 01/18/21 13:07 Dose: Infused Documented by: Remdesivir 100 mg/ Sodium (Chloride) 250 mls @ 250 mls/hr IV Q24H [facility]; Protocol Stop: 01/19/21 12:59 Last Admin: 01/18/21 13:03 Dose: 250 mls/hr Documented by: Furosemide 20 mg/ Syringe 2 mls @ 4 mls/min IV QAM [facility] Stop: 02/17/21 08:59 Last Admin: 01/18/21 08:00 Dose: 4 mls/min Documented by: Insulin Aspart (Insulin Aspart 100 Units/Ml 3 Ml Pen) 0 units SC ACHS [facility] Stop: 02/14/21 08:39 Last Admin: 01/18/21 13:02 Dose: 12 units Documented by: Insulin Glargine (Insulin Glargine Solostar 100 Units/Ml 3 Ml Pen) 15 units SC BID [facility] Stop: 02/14/21 11:29 Last Admin: 01/18/21 08:01 Dose: 15 units Documented by: Lisinopril (Lisinopril 40 Mg Tab) 40 mg PO DAILY [facility] Stop: 02/14/21 08:59 Last Admin: 01/18/21 08:01 Dose: 40 mg Documented by: Miscellaneous (Carbohydrates For Hypoglycemia ) 15 - 30 gm PO UD PRN PRN Reason: Hypoglycemia Protocol Stop: 02/14/21 08:39 Nitroglycerin (Nitroglycerin Sl 0.4 Mg/Tab Tab) 0.4 mg SL UD PRN PRN Reason: Chest Pain Stop: 02/14/21 08:39 Ondansetron HCl (Ondansetron Inj 2 Mg/Ml 2 Ml Vial) 4 mg IV Q6H PRN PRN Reason: Nausea Stop: 02/14/21 08:39 Potassium Chloride (Potassium Chloride Crtab 20 Meq Tabcr) 20 meq PO QAM [facility] Stop: 02/17/21 08:59 Last Admin: 01/18/21 11:01 Dose: 20 meq Documented by: Sodium Chloride (Sodium Chloride 0.9% 10ml Flush) 30 ml IV Q24H [facility] Stop: 01/19/21 12:01 Last Admin: 01/18/21 13:04 Dose: 30 ml Documented by: Vitamin D (Cholecalciferol 1,000 Units 25 Mcg Tab) 5,000 units PO QAM [facility] Stop: 02/14/21 08:59 Last Admin: 01/18/21 08:00 Dose: 5,000 units Documented by: Zinc Sulfate (Zinc Sulfate 220 Mg Capsule) 220 mg PO QAM [facility] Stop: 02/14/21 08:59 Last Admin: 01/18/21 08:01 Dose: 220 mg Documented by: PG Care Time/CCT Total # of Minutes Spent Total Time Spent: 31 Total Time Spent with Patient: Total time spent is greater than 50% in coordination of care (as documented) at patient's floor/unit and/or counseling patient: Coding Level of Care Code 37962 Subseq Hosp Care Lvl 3 Diagnoses Pneumonia due to COVID-19 virus U07.1; J12.82 Hypoxia R09.02 Diabetes mellitus E11.9 Hypertension I10 Morbid obesity with BMI of 40.0-44.9, adult E66.01; Z68.41
[2021-01-18] MEDS: COUGH DROP (SUGAR FREE) LOZ 24 LOZ/1 BOX BUCCAL PRN (21:17)
[2021-01-19] MEDS: FLUTICASONE PROPIONATE NA SPR 16 GM BTL SCH ×3 (03:05→22:03)
[2021-01-19 07:05] LABS: BUN Creatinine Ratio 42.9 (10-20); Calcium 8.9 mg/dl (8.5-10.1); Creatinine Clr Calc Pharmacy 151.4 ml/min; Est GFR (African American) 119.9 ml/min; Est GFR (Non-African American) 103.4 ml/min; Potassium 3.4 mmol/L (3.5-5.1)
--- NOTE | 2021-01-19 07:57 | XRay Report ---
XR chest 1V portable CLINICAL HISTORY: covid pneumonia COMPARISON STUDY: Chest radiograph January 17, 2021. FINDINGS: Lung volumes are diminished. This is unchanged. Patient is rotated. There is no pneumothora x or pleural effusion. Interstitial thickening and bilateral airspace opacities are similar to prior exam. IMPRESSION: No significant change in bilateral airspace opacities and interstitial thickening sugges tive of viral pneumonia. ACT 112: Negative or not required by law. Electronically signed by: Lawrence Faulkner M.D. 01/19/2021 7:56 AM
[2021-01-19] MEDS: INSULIN ASPART 100 UNITS/ML 3 ML PEN SC SCH ×4 (08:52→22:00)
[2021-01-19] MEDS: amLODIPine BESYLATE 5 MG TAB PO SCH (08:53)
[2021-01-19] MEDS: ZINC SULFATE 220 MG CAPSULE PO SCH (08:53)
[2021-01-19] MEDS: BENZONATATE 100 MG CAPSULE PO SCH ×3 (08:53→22:03)
[2021-01-19] MEDS: CHOLECALCIFEROL 1,000 UNITS 25 MCG TAB PO SCH (08:53)
[2021-01-19] MEDS: lisinopril 40 MG TAB PO SCH (08:53)
[2021-01-19] MEDS: ENOXAPARIN INJ 60 MG/0.6 ML SYR SQ SCH ×2 (08:53→22:03)
[2021-01-19] MEDS: guaiFENesin 600 MG TABCR PO SCH ×2 (08:53→22:02)
[2021-01-19] MEDS: FUROSEMIDE 20 MG in SYRINGE 0 ML IV SCH (08:54)
[2021-01-19] MEDS: INSULIN GLARGINE SOLOSTAR 100 UNITS/ML 3 ML PEN SC SCH ×2 (08:54→22:00)
[2021-01-19] MEDS: dexAMETHasone 6 MG in SYRINGE 0 ML IV SCH (08:55)
[2021-01-19] MEDS: AZITHROMYCIN 500 MG in DEXTROSE 5% 250 ML IV SCH (08:55)
[2021-01-19] MEDS: POTASSIUM CHLORIDE CRTAB 20 MEQ TABCR PO SCH ×2 (09:58→22:03)
--- NOTE | 2021-01-19 10:29 | Hospitalist Progress Note ---
Date of Service January 19, 2021 Assessment & Plan (1) Pneumonia due to COVID-19 virus: Plan: Dexamethasone 6 mg IV daily x 10 days, day 5 Remdesivir IV daily, completed 5 days on 01/19 Azithromycin 500 mg IV daily, completed 5 days on 01/19 Guaifenesin extended release 1200 mg p.o. twice daily Vitamin D 5000 international units p.o. daily Zinc sulfate turn 20 mg p.o. daily Proventil HFA 2 puffs PRN oxygen is up to 40L and 100% FiO2 no distress but he is tachypneic CRP is trending down, <4, no role for Tocilizumab sitting up in chair, flutter valve, incentive spirometer at high risk for deteriorating and needing ventilator, especially because he cannot lay prone will order BIPAP to use HS and see if he can tolerate if he gets hypoxic during the day will need to try BIPAP (2) Hypoxia: Plan: up to 40L and 100% FiO2 give Lasix 20mg IV qAM for negative fluid balance if he fails vapotherm will try BIPAP (3) Diabetes mellitus: Plan: Lantus 15 units BID having hyperglycemia yesterday, sugar 72 this morning tighten Novolog with CF of 15 and carb ratio of 5 (4) Hypertension: Plan: resume Norvasc 5mg daily Continue lisinopril 40 mg daily BP better today (5) Morbid obesity with BMI of 40.0-44.9, adult: Admission and Anticipated Discharge Date Admission Date: January 15, 2021 Physical Exam Physical Exam: General: well developed, well nourished, obese male, ill appearing Neck: supple, trachea midline, normal thyroid Lungs: slight crackles in bases, + tachypnea, + accessory muscle use (belly breathing), no wheezing Heart: regular S1 and S2, no murmur, peripheral pulses normal, capillary refill normal, no edema Abdomen: soft, NT, ND, + BS, no hepatomegaly, normal to percussion Extremities: normal in appearance, no cyanosis, no petechiae, strength is 5/5 bilaterally Neuro: awake, cooperative, moves all extremities, no focal motor deficits, CN II-XII intact, sensation in extremities intact, normal speech Skin: warm, dry, no rash, normal turgor Psych: Awake, alert oriented x 3, euthymic affect Results & Data Results & Data ([facility]) Vital Signs (Past 12 Hours) Vital Signs Temp Pulse Pulse Pulse Resp BP Pulse Ox 01/19/21 07:50 80 01/19/21 07:37 89 22 88 L 01/19/21 07:30 37.1 C 88 24 138/77 90 01/19/21 03:43 37.0 C 70 20 146/70 H 87 L 01/19/21 02:15 73 22 90 01/18/21 22:55 36.8 C 76 20 130/65 92 01/18/21 22:36 75 20 90 Laboratory Results Laboratory Results - last 24 hr 01/18/21 01/18/21 01/18/21 11:35 16:26 20:08 Sodium Potassium Chloride Carbon Dioxide Anion Gap BUN Creatinine Est Cr Clr Drug Dosing Est GFR ( Amer) Est GFR (Non-Af Amer) BUN/Creatinine Ratio Glucose POC Glucose 250 H 311 H* 276 H Calcium 01/19/21 01/19/21 05:44 07:17 Sodium 141 Potassium 3.4 L Chloride 108 H Carbon Dioxide 27 Anion Gap 6.0 BUN 27 H Creatinine 0.63 Est Cr Clr Drug Dosing 151.4 Est GFR ( Amer) 119.9 Est GFR (Non-Af Amer) 103.4 BUN/Creatinine Ratio 42.9 H Glucose 80 POC Glucose 72 Calcium 8.9 Medications Administered Current Inpatient Medications Acetaminophen (Acetaminophen 325 Mg Tab) 650 mg PO Q4H PRN PRN Reason: Pain or Fever Stop: 02/14/21 08:39 Albuterol (Albuterol Hfa 8 Gm Inhaler) 2 puffs INH Q2R PRN PRN Reason: Shortness Of Breath Stop: 02/14/21 08:48 Albuterol (Albut/Ipratrop 3mg/0.5mg Neb 3 Ml Vial) 3 ml NEB Q2R PRN PRN Reason: dyspnea Stop: 02/14/21 08:39 Amlodipine Besylate (Amlodipine Besylate 5 Mg Tab) 5 mg PO DAILY [facility] Stop: 02/16/21 08:59 Last Admin: 01/19/21 08:53 Dose: 5 mg Documented by: Benzonatate (Benzonatate 100 Mg Capsule) 100 mg PO TID [facility] Stop: 02/14/21 20:59 Last Admin: 01/19/21 08:53 Dose: 100 mg Documented by: Dextrose (Dextrose 50% 50 Ml Syringe) 25 - 50 ml IV UD PRN; Protocol PRN Reason: Hypoglycemia Protocol Stop: 02/14/21 08:39 Enoxaparin Sodium (Enoxaparin Inj 60 Mg/0.6 Ml Syr) 60 mg SQ Q12H [facility] Stop: 02/14/21 08:59 Last Admin: 01/19/21 08:53 Dose: 60 mg Documented by: Fluticasone Propionate (Fluticasone Propionate Na Spr 16 Gm Btl) 2 sprays NA BID [facility] Stop: 02/17/21 22:14 Last Admin: 01/19/21 08:54 Dose: 2 sprays Documented by: Glucagon (Glucagon For Inj 1 Mg Vial) 1 mg SQ UD PRN; Protocol PRN Reason: Hypoglycemia Protocol Stop: 02/14/21 08:39 Glucose (Glucose 10 Tabs/Tube) 4 - 8 tabs PO UD PRN; Protocol PRN Reason: Hypoglycemia Protocol Stop: 02/14/21 08:39 Glucose (Glucose 40% Gel 15 Gm Tube) 15 - 30 gm PO UD PRN; Protocol PRN Reason: Hypoglycemia Protocol Stop: 02/14/21 08:39 Guaifenesin (Guaifenesin 600 Mg Tabcr) 1,200 mg PO Q12 [facility] Stop: 02/14/21 08:59 Last Admin: 01/19/21 08:53 Dose: 1,200 mg Documented by: Dexamethasone 6 mg/ Syringe 1.5 mls @ 1 mls/min IV Q24H [facility] Stop: 02/15/21 03:59 Last Admin: 01/19/21 08:55 Dose: 1 mls/min Documented by: Azithromycin 500 mg/ Dextrose 255 mls @ 125 mls/hr IV Q24H [facility] Stop: 01/22/21 08:59 Last Admin: 01/19/21 08:55 Dose: 125 mls/hr Documented by: Remdesivir 100 mg/ Sodium (Chloride) 250 mls @ 250 mls/hr IV Q24H [facility]; Protocol Stop: 01/19/21 12:59 Last Infusion: 01/18/21 14:13 Dose: Infused Documented by: Furosemide 20 mg/ Syringe 2 mls @ 4 mls/min IV QAM [facility] Stop: 02/17/21 08:59 Last Admin: 01/19/21 08:54 Dose: 4 mls/min Documented by: Insulin Aspart (Insulin Aspart 100 Units/Ml 3 Ml Pen) 0 units SC ACHS [facility] Stop: 02/14/21 08:39 Last Admin: 01/19/21 08:52 Dose: 8 units Documented by: Insulin Glargine (Insulin Glargine Solostar 100 Units/Ml 3 Ml Pen) 15 units SC BID [facility] Stop: 02/14/21 11:29 Last Admin: 01/19/21 08:54 Dose: 15 units Documented by: Lisinopril (Lisinopril 40 Mg Tab) 40 mg PO DAILY [facility] Stop: 02/14/21 08:59 Last Admin: 01/19/21 08:53 Dose: 40 mg Documented by: Menthol (Cough Drop (Sugar Free) Checo 24 Checo/1 Box) 1 checo BUCCAL Q2H PRN PRN Reason: Sore Throat Stop: 02/17/21 20:48 Last Admin: 01/18/21 21:17 Dose: 1 checo Documented by: Miscellaneous (Carbohydrates For Hypoglycemia ) 15 - 30 gm PO UD PRN PRN Reason: Hypoglycemia Protocol Stop: 02/14/21 08:39 Nitroglycerin (Nitroglycerin Sl 0.4 Mg/Tab Tab) 0.4 mg SL UD PRN PRN Reason: Chest Pain Stop: 02/14/21 08:39 Ondansetron HCl (Ondansetron Inj 2 Mg/Ml 2 Ml Vial) 4 mg IV Q6H PRN PRN Reason: Nausea Stop: 02/14/21 08:39 Potassium Chloride (Potassium Chloride Crtab 20 Meq Tabcr) 20 meq PO BID [facility] Stop: 02/18/21 20:59 Sodium Chloride (Sodium Chloride 0.9% 10ml Flush) 30 ml IV Q24H [facility] Stop: 01/19/21 12:01 Last Admin: 01/18/21 13:04 Dose: 30 ml Documented by: Vitamin D (Cholecalciferol 1,000 Units 25 Mcg Tab) 5,000 units PO QAM [facility] Stop: 02/14/21 08:59 Last Admin: 01/19/21 08:53 Dose: 5,000 units Documented by: Zinc Sulfate (Zinc Sulfate 220 Mg Capsule) 220 mg PO QAM [facility] Stop: 02/14/21 08:59 Last Admin: 01/19/21 08:53 Dose: 220 mg Documented by: PG Care Time/CCT Total # of Minutes Spent Total Time Spent with Patient: Total time spent is greater than 50% in coordination of care (as documented) at patient's floor/unit and/or counseling patient: Coding Level of Care Code 11318 Subseq Hosp Care Lvl 2 Diagnoses Pneumonia due to COVID-19 virus U07.1; J12.82 Hypoxia R09.02 Diabetes mellitus E11.9 Hypertension I10 Morbid obesity with BMI of 40.0-44.9, adult E66.01; Z68.41
[2021-01-19] MEDS: REMDESIVIR 100 MG in SODIUM CHLORIDE 0.9% 230 ML IV SCH (12:32)
[2021-01-19] MEDS: ACETAMINOPHEN 325 MG TAB PO PRN (12:33)
[2021-01-19] MEDS: SODIUM CHLORIDE 0.9% 10ML FLUSH IV SCH (12:36)
[2021-01-20] MEDS: dexAMETHasone 6 MG in SYRINGE 0 ML IV SCH (08:07)
[2021-01-20] MEDS: FUROSEMIDE 20 MG in SYRINGE 0 ML IV SCH (08:07)
[2021-01-20] MEDS: INSULIN ASPART 100 UNITS/ML 3 ML PEN SC SCH ×4 (08:07→20:48)
[2021-01-20] MEDS: AZITHROMYCIN 500 MG in DEXTROSE 5% 250 ML IV SCH (08:07)
[2021-01-20] MEDS: guaiFENesin 600 MG TABCR PO SCH ×2 (08:08→20:57)
[2021-01-20] MEDS: ENOXAPARIN INJ 60 MG/0.6 ML SYR SQ SCH ×2 (08:08→20:56)
[2021-01-20] MEDS: POTASSIUM CHLORIDE CRTAB 20 MEQ TABCR PO SCH ×2 (08:08→20:57)
[2021-01-20] MEDS: FLUTICASONE PROPIONATE NA SPR 16 GM BTL SCH ×2 (08:08→20:57)
[2021-01-20] MEDS: ZINC SULFATE 220 MG CAPSULE PO SCH (08:09)
[2021-01-20] MEDS: CHOLECALCIFEROL 1,000 UNITS 25 MCG TAB PO SCH (08:09)
[2021-01-20] MEDS: lisinopril 40 MG TAB PO SCH (08:09)
[2021-01-20] MEDS: amLODIPine BESYLATE 5 MG TAB PO SCH (08:09)
[2021-01-20] MEDS: INSULIN GLARGINE SOLOSTAR 100 UNITS/ML 3 ML PEN SC SCH ×2 (08:09→20:49)
[2021-01-20] MEDS: BENZONATATE 100 MG CAPSULE PO SCH ×3 (08:09→20:57)
[2021-01-20] MEDS: ACETAMINOPHEN 325 MG TAB PO PRN (08:22)
[2021-01-20 09:25] LABS: BUN Creatinine Ratio 33.8 (10-20); Calcium 9.1 mg/dl (8.5-10.1); Creatinine Clr Calc Pharmacy 133.6 ml/min; Est GFR (African American) 113.5 ml/min; Est GFR (Non-African American) 97.9 ml/min; Potassium 3.3 mmol/L (3.5-5.1)
--- NOTE | 2021-01-20 20:40 | Hospitalist Progress Note ---
Date of Service January 20, 2021 Assessment & Plan (1) Pneumonia due to COVID-19 virus: Plan: Dexamethasone 6 mg IV daily x 10 days, day 6 Remdesivir IV daily, completed 5 days on 01/19 Azithromycin 500 mg IV daily, completed 5 days on 01/19 Guaifenesin extended release 1200 mg p.o. twice daily Vitamin D 5000 international units p.o. daily Zinc sulfate turn 20 mg p.o. daily Proventil HFA 2 puffs PRN oxygen is up to 40L, got down to 90% FiO2 no distress but he is tachypneic CRP is trending down, <4, no role for Tocilizumab sitting up in chair, flutter valve, incentive spirometer (great compliance, can pull in 2000-2500mL) at high risk for deteriorating and needing ventilator, especially because he cannot lay prone will order BIPAP to use HS - he did not tolerate last night, too much anxiety (2) Hypoxia: Plan: up to 40L and 100% FiO2 this morning, down slightly at 90% this evening give Lasix 20mg IV qAM for negative fluid balance, Cr and BUN stable, making urine if he fails vapotherm will try BIPAP (3) Diabetes mellitus: Plan: Lantus 15 units BID sugars acceptable Novolog with CF of 15 and carb ratio of 5 (4) Hypertension: Plan: continue Norvasc 5mg daily Continue lisinopril 40 mg daily BP better past two days (5) Morbid obesity with BMI of 40.0-44.9, adult: (6) Hypokalemia: Plan: 3.3, continue BID replacement Admission and Anticipated Discharge Date Admission Date: January 15, 2021 Physical Exam Physical Exam: General: well developed, well nourished, obese male, ill appearing Neck: supple, trachea midline, normal thyroid Lungs: slight crackles in bases, + tachypnea, + accessory muscle use (belly breathing), no wheezing Heart: regular S1 and S2, no murmur, peripheral pulses normal, capillary refill normal, no edema Abdomen: soft, NT, ND, + BS, no hepatomegaly, normal to percussion Extremities: normal in appearance, no cyanosis, no petechiae, strength is 5/5 bilaterally Neuro: awake, cooperative, moves all extremities, no focal motor deficits, CN II-XII intact, sensation in extremities intact, normal speech Skin: warm, dry, no rash, normal turgor Psych: Awake, alert oriented x 3, euthymic affect Results & Data Results & Data ([facility]) Vital Signs (Past 12 Hours) Vital Signs Temp Pulse Pulse Pulse Resp BP Pulse Ox 01/20/21 19:25 83 18 88 L 01/20/21 19:24 37.1 C 90 22 126/64 90 01/20/21 16:19 36.6 C 69 22 151/73 H 91 01/20/21 16:00 91 H 01/20/21 15:11 84 22 94 01/20/21 15:00 91 H 01/20/21 11:46 88 24 92 01/20/21 11:22 36.6 C 82 20 117/65 91 Laboratory Results Laboratory Results - last 24 hr 01/20/21 01/20/21 01/20/21 07:41 08:30 11:48 Sodium 140 Potassium 3.3 L Chloride 108 H Carbon Dioxide 25 Anion Gap 8.0 BUN 24 H Creatinine 0.72 Est Cr Clr Drug Dosing 133.6 Est GFR ( Amer) 113.5 Est GFR (Non-Af Amer) 97.9 BUN/Creatinine Ratio 33.8 H Glucose 79 POC Glucose 101 H 132 H Calcium 9.1 01/20/21 01/20/21 16:30 20:05 Sodium Potassium Chloride Carbon Dioxide Anion Gap BUN Creatinine Est Cr Clr Drug Dosing Est GFR ( Amer) Est GFR (Non-Af Amer) BUN/Creatinine Ratio Glucose POC Glucose 219 H 267 H Calcium Medications Administered Current Inpatient Medications Acetaminophen (Acetaminophen 325 Mg Tab) 650 mg PO Q4H PRN PRN Reason: Pain or Fever Stop: 02/14/21 08:39 Last Admin: 01/20/21 08:22 Dose: 650 mg Documented by: Albuterol (Albuterol Hfa 8 Gm Inhaler) 2 puffs INH Q2R PRN PRN Reason: Shortness Of Breath Stop: 02/14/21 08:48 Albuterol (Albut/Ipratrop 3mg/0.5mg Neb 3 Ml Vial) 3 ml NEB Q2R PRN PRN Reason: dyspnea Stop: 02/14/21 08:39 Amlodipine Besylate (Amlodipine Besylate 5 Mg Tab) 5 mg PO DAILY [facility] Stop: 02/16/21 08:59 Last Admin: 01/20/21 08:09 Dose: 5 mg Documented by: Benzonatate (Benzonatate 100 Mg Capsule) 100 mg PO TID [facility] Stop: 02/14/21 20:59 Last Admin: 01/20/21 15:07 Dose: 100 mg Documented by: Dextrose (Dextrose 50% 50 Ml Syringe) 25 - 50 ml IV UD PRN; Protocol PRN Reason: Hypoglycemia Protocol Stop: 02/14/21 08:39 Enoxaparin Sodium (Enoxaparin Inj 60 Mg/0.6 Ml Syr) 60 mg SQ Q12H [facility] Stop: 02/14/21 08:59 Last Admin: 01/20/21 08:08 Dose: 60 mg Documented by: Fluticasone Propionate (Fluticasone Propionate Na Spr 16 Gm Btl) 2 sprays NA BID [facility] Stop: 02/17/21 22:14 Last Admin: 01/20/21 08:08 Dose: 2 sprays Documented by: Glucagon (Glucagon For Inj 1 Mg Vial) 1 mg SQ UD PRN; Protocol PRN Reason: Hypoglycemia Protocol Stop: 02/14/21 08:39 Glucose (Glucose 10 Tabs/Tube) 4 - 8 tabs PO UD PRN; Protocol PRN Reason: Hypoglycemia Protocol Stop: 02/14/21 08:39 Glucose (Glucose 40% Gel 15 Gm Tube) 15 - 30 gm PO UD PRN; Protocol PRN Reason: Hypoglycemia Protocol Stop: 02/14/21 08:39 Guaifenesin (Guaifenesin 600 Mg Tabcr) 1,200 mg PO Q12 [facility] Stop: 02/14/21 08:59 Last Admin: 01/20/21 08:08 Dose: 1,200 mg Documented by: Dexamethasone 6 mg/ Syringe 1.5 mls @ 1 mls/min IV Q24H [facility] Stop: 02/15/21 03:59 Last Admin: 01/20/21 08:07 Dose: 1 mls/min Documented by: Azithromycin 500 mg/ Dextrose 255 mls @ 125 mls/hr IV Q24H [facility] Stop: 01/22/21 08:59 Last Infusion: 01/20/21 10:55 Dose: Infused Documented by: Furosemide 20 mg/ Syringe 2 mls @ 4 mls/min IV QAM [facility] Stop: 02/17/21 08:59 Last Admin: 01/20/21 08:07 Dose: 4 mls/min Documented by: Insulin Aspart (Insulin Aspart 100 Units/Ml 3 Ml Pen) 0 units SC ACHS [facility] Stop: 02/14/21 08:39 Last Admin: 01/20/21 18:03 Dose: 16 units Documented by: Insulin Glargine (Insulin Glargine Solostar 100 Units/Ml 3 Ml Pen) 15 units SC BID [facility] Stop: 02/14/21 11:29 Last Admin: 01/20/21 08:09 Dose: 15 units Documented by: Lisinopril (Lisinopril 40 Mg Tab) 40 mg PO DAILY [facility] Stop: 02/14/21 08:59 Last Admin: 01/20/21 08:09 Dose: 40 mg Documented by: Menthol (Cough Drop (Sugar Free) Checo 24 Checo/1 Box) 1 checo BUCCAL Q2H PRN PRN Reason: Sore Throat Stop: 02/17/21 20:48 Last Admin: 01/18/21 21:17 Dose: 1 checo Documented by: Miscellaneous (Carbohydrates For Hypoglycemia ) 15 - 30 gm PO UD PRN PRN Reason: Hypoglycemia Protocol Stop: 02/14/21 08:39 Nitroglycerin (Nitroglycerin Sl 0.4 Mg/Tab Tab) 0.4 mg SL UD PRN PRN Reason: Chest Pain Stop: 02/14/21 08:39 Ondansetron HCl (Ondansetron Inj 2 Mg/Ml 2 Ml Vial) 4 mg IV Q6H PRN PRN Reason: Nausea Stop: 02/14/21 08:39 Potassium Chloride (Potassium Chloride Crtab 20 Meq Tabcr) 20 meq PO BID [facility] Stop: 02/18/21 20:59 Last Admin: 01/20/21 08:08 Dose: 20 meq Documented by: Vitamin D (Cholecalciferol 1,000 Units 25 Mcg Tab) 5,000 units PO QAM [facility] Stop: 02/14/21 08:59 Last Admin: 01/20/21 08:09 Dose: 5,000 units Documented by: Zinc Sulfate (Zinc Sulfate 220 Mg Capsule) 220 mg PO QAM [facility] Stop: 02/14/21 08:59 Last Admin: 01/20/21 08:09 Dose: 220 mg Documented by: PG Care Time/CCT Total # of Minutes Spent Total Time Spent with Patient: Total time spent is greater than 50% in coordination of care (as documented) at patient's floor/unit and/or counseling patient: Coding Level of Care Code 94313 Subseq Hosp Care Lvl 3 Diagnoses Pneumonia due to COVID-19 virus U07.1; J12.82 Hypoxia R09.02 Diabetes mellitus E11.9 Hypertension I10 Morbid obesity with BMI of 40.0-44.9, adult E66.01; Z68.41 Hypokalemia E87.6
[2021-01-21] MEDS: FLUTICASONE PROPIONATE NA SPR 16 GM BTL SCH ×2 (07:12→19:45)
[2021-01-21] MEDS: ENOXAPARIN INJ 60 MG/0.6 ML SYR SQ SCH ×2 (07:12→19:47)
[2021-01-21] MEDS: dexAMETHasone 6 MG in SYRINGE 0 ML IV SCH (07:13)
[2021-01-21] MEDS: FUROSEMIDE 20 MG in SYRINGE 0 ML IV SCH (07:13)
[2021-01-21] MEDS: guaiFENesin 600 MG TABCR PO SCH ×2 (07:14→19:47)
[2021-01-21] MEDS: POTASSIUM CHLORIDE CRTAB 20 MEQ TABCR PO SCH ×2 (07:16→19:46)
[2021-01-21] MEDS: amLODIPine BESYLATE 5 MG TAB PO SCH (07:16)
[2021-01-21] MEDS: lisinopril 40 MG TAB PO SCH (07:17)
[2021-01-21] MEDS: BENZONATATE 100 MG CAPSULE PO SCH ×3 (07:17→19:45)
[2021-01-21] MEDS: ZINC SULFATE 220 MG CAPSULE PO SCH (07:17)
[2021-01-21] MEDS: CHOLECALCIFEROL 1,000 UNITS 25 MCG TAB PO SCH (07:18)
[2021-01-21] MEDS: INSULIN GLARGINE SOLOSTAR 100 UNITS/ML 3 ML PEN SC SCH ×2 (07:20→21:26)
[2021-01-21] MEDS: INSULIN ASPART 100 UNITS/ML 3 ML PEN SC SCH ×4 (09:43→21:24)
[2021-01-21 10:24] LABS: Basophils # (auto) 0.01 K/uL (0-0.2); Basophils % (auto) 0.1 %; Eosinophils # (auto) 0.01 K/uL (0-0.5); Eosinophils % (auto) 0.1 %; Hematocrit (blood only) 43.9 % (42-52); Hemoglobin 14.8 g/dL (14.0-18.0); Immature Granulocytes # (auto) 0.18 K/uL (0.00-0.02); Immature Granulocytes % (auto) 1.5 %; Lymphocytes # (auto) 0.66 K/uL (1.2-3.4); Lymphocytes % (auto) 5.5 %; Mean Corpuscular Hemoglobin 29.1 pg (25-34); Mean Corpuscular Hgb Conc 33.7 g/dL (32-36); Mean Corpuscular Volume 86.2 fL (80-100); Mean Platelet Volume 9.9 fL (7.4-10.4); Monocytes # (auto) 0.66 K/uL (0.11-0.59); Monocytes % (auto) 5.5 %; Neutrophils # (auto) 10.48 K/uL (1.4-6.5); Neutrophils % (auto) 87.3 %; Platelet Count 336 K/uL (130-400); RDW Coefficient of Variation 13.5 % (11.5-14.5); RDW Standard Deviation 42.7 fL (36.4-46.3); Red Blood Count 5.09 M/uL (4.7-6.1)
[2021-01-21] MEDS: ACETAMINOPHEN 325 MG TAB PO PRN ×2 (10:32→19:54)
[2021-01-21] MEDS: AZITHROMYCIN 500 MG in DEXTROSE 5% 250 ML IV SCH (10:33)
[2021-01-21 10:51] LABS: Albumin Level 2.4 gm/dl (3.4-5.0); BUN Creatinine Ratio 28.3 (10-20); Calcium 8.7 mg/dl (8.5-10.1); Creatinine Clr Calc Pharmacy 104.2 ml/min; Est GFR (African American) 100.8 ml/min; Magnesium 1.8 mg/dl (1.8-2.4); Potassium 3.7 mmol/L (3.5-5.1)
[2021-01-21 10:54] LABS: Albumin Globulin Ratio 0.6 (0.9-2); Bilirubin,Total 0.6 mg/dl (0.2-1); Globulin 4.1 gm/dl (2.5-4.0); Total Protein 6.5 gm/dl (6.4-8.2)
[2021-01-21] MEDS: LOPERAMIDE HCL 2 MG CAP PO PRN ×2 (11:02→18:08)
--- NOTE | 2021-01-21 12:49 | Hospitalist Progress Note ---
Date of Service January 21, 2021 Assessment & Plan (1) Pneumonia due to COVID-19 virus: Plan: Chest x-ray with bilateral airspace opacities and interstitial thickening suggestive of viral pneumonia With acute respiratory failure with hypoxia Remains on high flow nasal cannula at 40 L and 85% FiO2 Continue dexamethasone 6 mg IV daily x 10 days, day 7 Remdesivir IV daily, completed 5 days on 01/19 Azithromycin 500 mg IV daily, completed 7 days on 01/21 Continue guaifenesin extended release 1200 mg p.o. twice daily Vitamin D 5000 international units p.o. daily Zinc sulfate turn 20 mg p.o. daily Proventil HFA 2 puffs PRN CRP is trending down, <4, no role for Tocilizumab sitting up in chair, ordered flutter valve, continue incentive spirometer (great compliance, can pull in 2000-2500mL) at high risk for deteriorating and needing ventilator, especially because he cannot lay prone He cannot tolerate BiPAP (2) Hypoxia: Plan: As above, secondary to Covid-19 pneumonia -Continue to give Lasix 20mg IV qAM for negative fluid balance, Cr and BUN stable, making urine (3) Diabetes mellitus: Plan: With significant hyperglycemia We will increase NovoLog sliding scale, but keep Lantus the same at 15 units twice daily as morning glucose was only 71 (4) Hypertension: Plan: Blood pressures are controlled to mildly low Hold Norvasc 5mg daily Decrease lisinopril to 20 mg daily at least while giving IV Lasix and is having significant diarrhea (5) Morbid obesity with BMI of 40.0-44.9, adult: Plan: BMI 40.4 Needs weight (6) Hypokalemia: Plan: Improved with replacement Continue replacement as is also getting Lasix and having diarrhea Follow BMP and magnesium Give 1 g magnesium sulfate (7) Diarrhea: Plan: With multiple episodes daily-likely secondary to Covid-19 and also was on azithromycin Azithromycin now completed C. difficile checked and was negative Start Imodium as needed Plan: Lovenox SQ Disposition-continued stay on telemetry Admission and Anticipated Discharge Date Admission Date: January 15, 2021 Subjective Patient reports he still feels short of breath and coughs at times but a little bit improved. Appetite is improving. He is having numerous episodes of diarrhea and loose stools that are nonbloody. C. difficile was negative. He is out of bed to chair and using incentive spirometry. Telemetry with normal sinus rhythm and PVCs with rates in the 90s to low 100s. Remains on high flow nasal cannula at 40 L and 85% FiO2 when I saw him Review of Systems Review of Systems: All systems reviewed & are unremarkable except as noted in HPI & below Physical Exam Constitutional: WD/WN, vitals as above Eyes: + anicteric sclerae Neck: trachea midline, no thyromegaly Respiratory: normal respiratory effort Auscultation: + diminished lung sounds (Throughout due to body habitus) and + crackles (Lower lung chang bilaterally) Cardiovascular: RRR, no murmur, no edema Chest (Breasts): Chest: normal inspection of chest Gastrointestinal (Abdomen): normal bowel sounds, soft, nontender, no hepatosplenomegaly Musculoskeletal: Extremities: extremities normal to inspection; no cyanosis and no clubbing Skin: no rashes, warm and dry Neurologic: moves all extremities and awake; no focal motor deficits Psychiatric: A+Ox3, euthymic affect Results & Data Results & Data ([facility]) Vital Signs (Past 12 Hours) Vital Signs Temp Pulse Pulse Resp BP Pulse Ox 01/21/21 11:36 79 20 93 01/21/21 11:09 37 C 90 18 97/47 L 95 01/21/21 07:37 108 H 26 H 90 01/21/21 07:33 108 H 26 H 90 01/21/21 07:06 36.8 C 101 H 25 H 140/68 90 01/21/21 04:23 37.0 C 95 H 22 112/54 L 88 L 01/21/21 03:04 91 H 24 91 Laboratory Results 01/21/21 01/21/21 01/21/21 Range/Units 16:42 11:23 09:52 WBC (4.8-10.8) K/uL RBC (4.7-6.1) M/uL Hgb (14.0-18.0) g/dL Hct (42-52) % MCV (80-100) fL MCH (25-34) pg MCHC (32-36) g/dL RDW Std Deviation (36.4-46.3) fL RDW Coeff of Carmela (11.5-14.5) % Plt Count (130-400) K/uL MPV (7.4-10.4) fL Immature Gran % (Auto) % Neut % (Auto) % Lymph % (Auto) % Dundy % (Auto) % Eos % (Auto) % Baso % (Auto) % Neut # (Auto) (1.4-6.5) K/uL Lymph # (Auto) (1.2-3.4) K/uL Dundy # (Auto) (0.11-0.59) K/uL Eos # (Auto) (0-0.5) K/uL Baso # (Auto) (0-0.2) K/uL Immature Gran # (Auto) (0.00-0.02) K/uL Sodium 138 (136-145) mmol/L Potassium 3.7 (3.5-5.1) mmol/L Chloride 107 (98-107) mmol/L Carbon Dioxide 23 (21-32) mmol/L Anion Gap 8.0 (3-11) BUN 26 H (7-18) mg/dl Creatinine 0.92 (0.6-1.4) mg/dl Est Cr Clr Drug Dosing 104.2 ml/min Est GFR ( Amer) 100.8 ml/min Est GFR (Non-Af Amer) 87.0 ml/min BUN/Creatinine Ratio 28.3 H (10-20) Glucose 294 H (70-99) mg/dl POC Glucose 240 H 289 H (70-99) mg/dl Calcium 8.7 (8.5-10.1) mg/dl Magnesium 1.8 (1.8-2.4) mg/dl Total Bilirubin 0.6 (0.2-1) mg/dl AST 18 (15-37) U/L ALT 33 (12-78) U/L Alkaline Phosphatase 64 (45-117) U/L Total Protein 6.5 (6.4-8.2) gm/dl Albumin 2.4 L (3.4-5.0) gm/dl Globulin 4.1 H (2.5-4.0) gm/dl Albumin/Globulin Ratio 0.6 L (0.9-2) Stl C. diff Tox B Gene (Neg) 01/21/21 01/21/21 01/21/21 Range/Units 09:52 09:00 07:39 WBC 12.00 H (4.8-10.8) K/uL RBC 5.09 (4.7-6.1) M/uL Hgb 14.8 (14.0-18.0) g/dL Hct 43.9 (42-52) % MCV 86.2 (80-100) fL MCH 29.1 (25-34) pg MCHC 33.7 (32-36) g/dL RDW Std Deviation 42.7 (36.4-46.3) fL RDW Coeff of Carmela 13.5 (11.5-14.5) % Plt Count 336 (130-400) K/uL MPV 9.9 (7.4-10.4) fL Immature Gran % (Auto) 1.5 % Neut % (Auto) 87.3 % Lymph % (Auto) 5.5 % Dundy % (Auto) 5.5 % Eos % (Auto) 0.1 % Baso % (Auto) 0.1 % Neut # (Auto) 10.48 H (1.4-6.5) K/uL Lymph # (Auto) 0.66 L (1.2-3.4) K/uL Dundy # (Auto) 0.66 H (0.11-0.59) K/uL Eos # (Auto) 0.01 (0-0.5) K/uL Baso # (Auto) 0.01 (0-0.2) K/uL Immature Gran # (Auto) 0.18 H (0.00-0.02) K/uL Sodium (136-145) mmol/L Potassium (3.5-5.1) mmol/L Chloride (98-107) mmol/L Carbon Dioxide (21-32) mmol/L Anion Gap (3-11) BUN (7-18) mg/dl Creatinine (0.6-1.4) mg/dl Est Cr Clr Drug Dosing ml/min Est GFR ( Amer) ml/min Est GFR (Non-Af Amer) ml/min BUN/Creatinine Ratio (10-20) Glucose (70-99) mg/dl POC Glucose 71 (70-99) mg/dl Calcium (8.5-10.1) mg/dl Magnesium (1.8-2.4) mg/dl Total Bilirubin (0.2-1) mg/dl AST (15-37) U/L ALT (12-78) U/L Alkaline Phosphatase (45-117) U/L Total Protein (6.4-8.2) gm/dl Albumin (3.4-5.0) gm/dl Globulin (2.5-4.0) gm/dl Albumin/Globulin Ratio (0.9-2) Stl C. diff Tox B Gene Negative Cdiff Gene (Neg) 01/20/21 Range/Units 20:05 WBC (4.8-10.8) K/uL RBC (4.7-6.1) M/uL Hgb (14.0-18.0) g/dL Hct (42-52) % MCV (80-100) fL MCH (25-34) pg MCHC (32-36) g/dL RDW Std Deviation (36.4-46.3) fL RDW Coeff of Carmela (11.5-14.5) % Plt Count (130-400) K/uL MPV (7.4-10.4) fL Immature Gran % (Auto) % Neut % (Auto) % Lymph % (Auto) % Dundy % (Auto) % Eos % (Auto) % Baso % (Auto) % Neut # (Auto) (1.4-6.5) K/uL Lymph # (Auto) (1.2-3.4) K/uL Dundy # (Auto) (0.11-0.59) K/uL Eos # (Auto) (0-0.5) K/uL Baso # (Auto) (0-0.2) K/uL Immature Gran # (Auto) (0.00-0.02) K/uL Sodium (136-145) mmol/L Potassium (3.5-5.1) mmol/L Chloride (98-107) mmol/L Carbon Dioxide (21-32) mmol/L Anion Gap (3-11) BUN (7-18) mg/dl Creatinine (0.6-1.4) mg/dl Est Cr Clr Drug Dosing ml/min Est GFR ( Amer) ml/min Est GFR (Non-Af Amer) ml/min BUN/Creatinine Ratio (10-20) Glucose (70-99) mg/dl POC Glucose 267 H (70-99) mg/dl Calcium (8.5-10.1) mg/dl Magnesium (1.8-2.4) mg/dl Total Bilirubin (0.2-1) mg/dl AST (15-37) U/L ALT (12-78) U/L Alkaline Phosphatase (45-117) U/L Total Protein (6.4-8.2) gm/dl Albumin (3.4-5.0) gm/dl Globulin (2.5-4.0) gm/dl Albumin/Globulin Ratio (0.9-2) Stl C. diff Tox B Gene (Neg) PG Care Time/CCT Total # of Minutes Spent Total Time Spent with Patient: Total time spent is greater than 50% in coordination of care (as documented) at patient's floor/unit and/or counseling patient: Coding Level of Care Code 52967 Subseq Hosp Care Lvl 3 Diagnoses Pneumonia due to COVID-19 virus U07.1; J12.82 Hypoxia R09.02 Diabetes mellitus E11.9 Hypertension I10 Morbid obesity with BMI of 40.0-44.9, adult E66.01; Z68.41 Hypokalemia E87.6 Diarrhea R19.7
[2021-01-21] MEDS ORDERED: MAGNESIUM SULFATE / D5W 1 GM/100 ML BAG IV ONE (12:55)
[2021-01-22 06:22] LABS: Basophils # (auto) 0.02 K/uL (0-0.2); Basophils % (auto) 0.2 %; Eosinophils # (auto) 0.06 K/uL (0-0.5); Eosinophils % (auto) 0.5 %; Hematocrit (blood only) 41.4 % (42-52); Hemoglobin 13.7 g/dL (14.0-18.0); Immature Granulocytes # (auto) 0.25 K/uL (0.00-0.02); Immature Granulocytes % (auto) 2.2 %; Lymphocytes % (auto) 10.6 %; Mean Corpuscular Hemoglobin 28.5 pg (25-34); Mean Corpuscular Hgb Conc 33.1 g/dL (32-36); Mean Corpuscular Volume 86.1 fL (80-100); Mean Platelet Volume 9.6 fL (7.4-10.4); Monocytes # (auto) 0.79 K/uL (0.11-0.59); Monocytes % (auto) 6.9 %; Neutrophils # (auto) 9.05 K/uL (1.4-6.5); Neutrophils % (auto) 79.6 %; Platelet Count 389 K/uL (130-400); RDW Coefficient of Variation 13.4 % (11.5-14.5); RDW Standard Deviation 42.4 fL (36.4-46.3); Red Blood Count 4.81 M/uL (4.7-6.1); White Blood Count 11.37 K/uL (4.8-10.8)
[2021-01-22 07:04] LABS: BUN Creatinine Ratio 44.6 (10-20); C Reactive Protein 7.76 mg/dl (0-0.29); Creatinine Clr Calc Pharmacy 171.2 ml/min; Est GFR (African American) 125.8 ml/min; Est GFR (Non-African American) 108.5 ml/min; Magnesium 2.1 mg/dl (1.8-2.4); Potassium 3.7 mmol/L (3.5-5.1)
[2021-01-22] MEDS: INSULIN ASPART 100 UNITS/ML 3 ML PEN SC SCH ×4 (08:00→21:10)
[2021-01-22] MEDS: CHOLECALCIFEROL 1,000 UNITS 25 MCG TAB PO SCH (09:00)
[2021-01-22] MEDS: dexAMETHasone 6 MG in SYRINGE 0 ML IV SCH (09:00)
[2021-01-22] MEDS: ZINC SULFATE 220 MG CAPSULE PO SCH (09:00)
[2021-01-22] MEDS: FUROSEMIDE 20 MG in SYRINGE 0 ML IV SCH ×2 (09:00→17:50)
[2021-01-22] MEDS: BENZONATATE 100 MG CAPSULE PO SCH ×3 (09:00→20:02)
[2021-01-22] MEDS: lisinopril 20 MG TAB PO SCH (09:00)
[2021-01-22] MEDS: guaiFENesin 600 MG TABCR PO SCH ×2 (09:00→20:02)
[2021-01-22] MEDS: FLUTICASONE PROPIONATE NA SPR 16 GM BTL SCH ×2 (09:01→21:13)
[2021-01-22] MEDS: ENOXAPARIN INJ 60 MG/0.6 ML SYR SQ SCH ×2 (09:01→20:01)
[2021-01-22] MEDS: POTASSIUM CHLORIDE CRTAB 20 MEQ TABCR PO SCH ×2 (09:08→20:02)
[2021-01-22] MEDS: ACETAMINOPHEN 325 MG TAB PO PRN (09:09)
[2021-01-22] MEDS: INSULIN GLARGINE SOLOSTAR 100 UNITS/ML 3 ML PEN SC SCH ×2 (09:59→21:11)
--- NOTE | 2021-01-22 17:34 | Hospitalist Progress Note ---
Date of Service January 22, 2021 Assessment & Plan (1) Pneumonia due to COVID-19 virus: Plan: Chest x-ray with bilateral airspace opacities and interstitial thickening suggestive of viral pneumonia With acute respiratory failure with hypoxia Remains on high flow nasal cannula at 40 L and 90% FiO2 which is not much improvement in the last couple of days Continue dexamethasone 6 mg IV daily x 10 days, day 8 Remdesivir IV daily, completed 5 days on 01/19 Azithromycin 500 mg IV daily, completed 7 days on 01/21 Continue guaifenesin extended release 1200 mg p.o. twice daily Vitamin D 5000 international units p.o. daily Zinc sulfate turn 20 mg p.o. daily Proventil HFA 2 puffs PRN CRP was trending down <4, no role for Tocilizumab, however now is increased again to 7.76-still not a candidate for Tocilizumab given that he is 7 days into his hospitalization Continue to get out of bed and sitting up in chair, side sleeping as he cannot tolerate prone position -Continue flutter valve,incentive spirometer (great compliance, can pull in 2000-2500mL) at high risk for deteriorating and needing ventilator, especially because he cannot lay prone He cannot tolerate BiPAP (2) Hypoxia: Plan: As above, secondary to Covid-19 pneumonia -Increased dose of Lasix 20mg IV to twice daily for negative fluid balance, Cr and BUN stable, making urine (3) Diabetes mellitus: Plan: With significant hyperglycemia which is now improved with increased doses of insulin Continue NovoLog sliding scale, and keep Lantus the same at 15 units twice daily (4) Hypertension: Plan: Blood pressures were mildly low, but now are increased since holding Norvasc and decreasing dose of lisinopril We will restart Norvasc 5mg daily in the morning Continue decreased dose of lisinopril at 20 mg daily at least while giving IV Lasix (5) Morbid obesity with BMI of 40.0-44.9, adult: Plan: BMI 40.4 Needs weight loss (6) Hypokalemia: Plan: Improved with replacement Continue replacement as is also getting Lasix and was having diarrhea Follow BMP and magnesium Continue potassium chloride 20 mEq p.o. twice daily (7) Diarrhea: Plan: With multiple episodes daily-likely secondary to Covid-19 and also was on azithromycin Azithromycin now completed C. difficile checked and was negative Diarrhea is now much improved and 01/22 Continue Imodium as needed Plan: Lovenox SQ Disposition-continued stay on telemetry Admission and Anticipated Discharge Date Admission Date: January 15, 2021 Subjective Patient ports having an okay day. Still remains on 40 L and 90% FiO2 on high flow nasal cannula. He is not able to tolerate prone position but is lying on his side and has been out of bed to chair. His diarrhea has resolved since taking Imodium. He reports some shortness of breath. He feels generally weak all over. Telemetry with normal sinus rhythm with rates in the 70s to 90s. Review of Systems Review of Systems: All systems reviewed & are unremarkable except as noted in HPI & below Physical Exam Constitutional: WD/WN, vitals as above + morbidly obese Eyes: + anicteric sclerae Neck: trachea midline, no thyromegaly Respiratory: normal respiratory effort Auscultation: + diminished lung sounds (Throughout due to body habitus) and + crackles (Lower lung chang bilaterally) Cardiovascular: RRR, no murmur, no edema Chest (Breasts): Chest: normal inspection of chest Gastrointestinal (Abdomen): normal bowel sounds, soft, nontender, no hepatosplenomegaly Musculoskeletal: Extremities: extremities normal to inspection; no cyanosis and no clubbing Skin: no rashes, warm and dry Neurologic: moves all extremities and awake; no focal motor deficits Psychiatric: A+Ox3, euthymic affect Results & Data Results & Data ([facility]) Vital Signs (Past 12 Hours) Vital Signs Temp Pulse Pulse Resp BP Pulse Ox 01/22/21 16:22 84 22 165/80 H 95 01/22/21 15:15 94 H 26 H 89 L 01/22/21 11:57 99 H 22 91 01/22/21 11:50 36.9 C 87 24 120/68 93 01/22/21 08:00 76 01/22/21 07:30 80 24 141/69 H 91 01/22/21 07:15 77 18 90 Laboratory Results 01/22/21 01/22/21 01/22/21 Range/Units 17:01 12:17 08:07 WBC (4.8-10.8) K/uL RBC (4.7-6.1) M/uL Hgb (14.0-18.0) g/dL Hct (42-52) % MCV (80-100) fL MCH (25-34) pg MCHC (32-36) g/dL RDW Std Deviation (36.4-46.3) fL RDW Coeff of Carmela (11.5-14.5) % Plt Count (130-400) K/uL MPV (7.4-10.4) fL Immature Gran % (Auto) % Neut % (Auto) % Lymph % (Auto) % Upson % (Auto) % Eos % (Auto) % Baso % (Auto) % Neut # (Auto) (1.4-6.5) K/uL Lymph # (Auto) (1.2-3.4) K/uL Upson # (Auto) (0.11-0.59) K/uL Eos # (Auto) (0-0.5) K/uL Baso # (Auto) (0-0.2) K/uL Immature Gran # (Auto) (0.00-0.02) K/uL Sodium (136-145) mmol/L Potassium (3.5-5.1) mmol/L Chloride (98-107) mmol/L Carbon Dioxide (21-32) mmol/L Anion Gap (3-11) BUN (7-18) mg/dl Creatinine (0.6-1.4) mg/dl Est Cr Clr Drug Dosing ml/min Est GFR ( Amer) ml/min Est GFR (Non-Af Amer) ml/min BUN/Creatinine Ratio (10-20) Glucose (70-99) mg/dl POC Glucose 141 H 133 H 72 (70-99) mg/dl Calcium (8.5-10.1) mg/dl Magnesium (1.8-2.4) mg/dl C-Reactive Protein (0-0.29) mg/dl 01/22/21 01/22/21 01/21/21 Range/Units 06:02 06:02 20:33 WBC 11.37 H (4.8-10.8) K/uL RBC 4.81 (4.7-6.1) M/uL Hgb 13.7 L (14.0-18.0) g/dL Hct 41.4 L (42-52) % MCV 86.1 (80-100) fL MCH 28.5 (25-34) pg MCHC 33.1 (32-36) g/dL RDW Std Deviation 42.4 (36.4-46.3) fL RDW Coeff of Carmela 13.4 (11.5-14.5) % Plt Count 389 (130-400) K/uL MPV 9.6 (7.4-10.4) fL Immature Gran % (Auto) 2.2 % Neut % (Auto) 79.6 % Lymph % (Auto) 10.6 % Upson % (Auto) 6.9 % Eos % (Auto) 0.5 % Baso % (Auto) 0.2 % Neut # (Auto) 9.05 H (1.4-6.5) K/uL Lymph # (Auto) 1.20 (1.2-3.4) K/uL Upson # (Auto) 0.79 H (0.11-0.59) K/uL Eos # (Auto) 0.06 (0-0.5) K/uL Baso # (Auto) 0.02 (0-0.2) K/uL Immature Gran # (Auto) 0.25 H (0.00-0.02) K/uL Sodium 139 (136-145) mmol/L Potassium 3.7 (3.5-5.1) mmol/L Chloride 108 H (98-107) mmol/L Carbon Dioxide 25 (21-32) mmol/L Anion Gap 6.0 (3-11) BUN 25 H (7-18) mg/dl Creatinine 0.56 L D (0.6-1.4) mg/dl Est Cr Clr Drug Dosing 171.2 ml/min Est GFR ( Amer) 125.8 ml/min Est GFR (Non-Af Amer) 108.5 ml/min BUN/Creatinine Ratio 44.6 H (10-20) Glucose 78 (70-99) mg/dl POC Glucose 180 H (70-99) mg/dl Calcium 9.0 (8.5-10.1) mg/dl Magnesium 2.1 (1.8-2.4) mg/dl C-Reactive Protein 7.76 H (0-0.29) mg/dl PG Care Time/CCT Total # of Minutes Spent Total Time Spent with Patient: Total time spent is greater than 50% in coordination of care (as documented) at patient's floor/unit and/or counseling patient: Coding Level of Care Code 63061 Subseq Hosp Care Lvl 3 Diagnoses Pneumonia due to COVID-19 virus U07.1; J12.82 Hypoxia R09.02 Diabetes mellitus E11.9 Hypertension I10 Morbid obesity with BMI of 40.0-44.9, adult E66.01; Z68.41 Hypokalemia E87.6 Diarrhea R19.7
[2021-01-23] MEDS: ACETAMINOPHEN 325 MG TAB PO PRN ×2 (05:56→20:49)
[2021-01-23 07:11] LABS: C Reactive Protein 4.37 mg/dl (0-0.29); Calcium 8.9 mg/dl (8.5-10.1); Creatinine Clr Calc Pharmacy 152.5 ml/min; Est GFR (African American) 120.7 ml/min; Est GFR (Non-African American) 104.1 ml/min; Magnesium 1.9 mg/dl (1.8-2.4); Potassium 3.7 mmol/L (3.5-5.1)
[2021-01-23] MEDS: INSULIN ASPART 100 UNITS/ML 3 ML PEN SC SCH ×4 (08:00→21:34)
[2021-01-23] MEDS: FUROSEMIDE 20 MG in SYRINGE 0 ML IV SCH ×2 (08:27→17:32)
[2021-01-23] MEDS: dexAMETHasone 6 MG in SYRINGE 0 ML IV SCH (08:27)
[2021-01-23] MEDS: BENZONATATE 100 MG CAPSULE PO SCH ×3 (08:28→20:48)
[2021-01-23] MEDS: CHOLECALCIFEROL 1,000 UNITS 25 MCG TAB PO SCH (08:28)
[2021-01-23] MEDS: guaiFENesin 600 MG TABCR PO SCH ×2 (08:28→20:48)
[2021-01-23] MEDS: POTASSIUM CHLORIDE CRTAB 20 MEQ TABCR PO SCH ×2 (08:28→20:48)
[2021-01-23] MEDS: ZINC SULFATE 220 MG CAPSULE PO SCH (08:28)
[2021-01-23] MEDS: FLUTICASONE PROPIONATE NA SPR 16 GM BTL SCH ×2 (08:28→20:48)
[2021-01-23] MEDS: lisinopril 20 MG TAB PO SCH (08:28)
[2021-01-23] MEDS: ENOXAPARIN INJ 60 MG/0.6 ML SYR SQ SCH ×2 (08:29→20:49)
[2021-01-23] MEDS: amLODIPine BESYLATE 5 MG TAB PO SCH (08:29)
[2021-01-23] MEDS: INSULIN GLARGINE SOLOSTAR 100 UNITS/ML 3 ML PEN SC SCH ×2 (08:41→21:34)
--- NOTE | 2021-01-23 16:54 | Hospitalist Progress Note ---
Date of Service January 23, 2021 Assessment & Plan (1) Pneumonia due to COVID-19 virus: Plan: Chest x-ray with bilateral airspace opacities and interstitial thickening suggestive of viral pneumonia With acute respiratory failure with hypoxia Remains on high flow nasal cannula but is slowly weaning down FiO2-currently on 40 L and 70% FiO2 on 01/23 which is an improvement from 100% FiO2 previously Continue dexamethasone 6 mg IV daily x 10 days, day 9 Remdesivir IV daily, completed 5 days on 01/19 Azithromycin 500 mg IV daily, completed 7 days on 01/21 Continue guaifenesin extended release 1200 mg p.o. twice daily Vitamin D 5000 units p.o. daily Zinc sulfate 20 mg p.o. daily Proventil HFA 2 puffs PRN CRP was trending down <4, no role for Tocilizumab initially, however CRP then increased again to 7.76 but is back down to 4 again today as he is improving Continue to get out of bed and sitting up in chair, side sleeping as he cannot tolerate prone position -Continue flutter valve,incentive spirometer (great compliance, can pull in 2000-2500mL) at high risk for deteriorating and needing ventilator, especially because he cannot lay prone He cannot tolerate BiPAP -Continue diuresis with Lasix 20 mg IV twice daily -Continue to wean off supplemental O2 as tolerated (2) Hypoxia: Plan: As above, secondary to Covid-19 pneumonia -Increased dose of Lasix 20mg IV to twice daily for negative fluid balance, Cr and BUN stable, making urine (3) Diabetes mellitus: Plan: With significant hyperglycemia which is now improved with increased doses of insulin, but remains still with some hyperglycemia throughout the day Continue NovoLog sliding scale but further tighten down the correction factor and carbohydrate ratio, and keep Lantus the same at 15 units twice daily Hemoglobin A1c significantly uncontrolled at 9.3% He will need close follow-up with his PCP after discharge Holding home metformin and Jardiance (4) Hypertension: Plan: Blood pressures acceptable Continue Norvasc 5mg daily in the morning Continue decreased dose of lisinopril at 20 mg daily at least while giving IV Lasix (5) Morbid obesity with BMI of 40.0-44.9, adult: Plan: BMI 40.4 Needs weight loss (6) Hypokalemia: Plan: Improved with replacement Continue replacement as is also getting Lasix and was having diarrhea Follow BMP and magnesium Continue potassium chloride 20 mEq p.o. twice daily (7) Diarrhea: Plan: With multiple episodes daily-likely secondary to Covid-19 and also was on azithromycin Azithromycin now completed C. difficile checked and was negative Diarrhea is now resolved Plan: Lovenox SQ Disposition-continued stay on telemetry, but starting to make some slow improvements, expect he will be here at least another 4 to 5 days Admission and Anticipated Discharge Date Admission Date: January 15, 2021 Subjective Patient report feeling much improved today. He got to have a video chat with his last evening which really lifted his spirits. He feels more energy today. He is out of bed to the chair. Eating and drinking well, moving his bowels without any diarrhea, making urine. Denies chest pain or shortness of breath. His FiO2 is weaned down to 75% when I saw him and 70% later in the day at 40 L of flow. Telemetry with normal sinus rhythm with rates in the 90s Review of Systems Review of Systems: All systems reviewed & are unremarkable except as noted in HPI & below Physical Exam Constitutional: WD/WN, vitals as above + morbidly obese Eyes: + anicteric sclerae Neck: trachea midline, no thyromegaly Respiratory: normal respiratory effort Auscultation: + diminished lung sounds (Throughout due to body habitus) and + crackles (Lower lung chang bilaterally) Cardiovascular: Rate/Rhythm: regular rate and regular rhythm Heart Sounds: no murmur Extremities: + edema (1+ edema of the legs bilaterally) Chest (Breasts): Chest: normal inspection of chest Gastrointestinal (Abdomen): normal bowel sounds, soft, nontender, no hepatosplenomegaly Musculoskeletal: Extremities: extremities normal to inspection; no cyanosis and no clubbing Skin: no rashes, warm and dry Neurologic: moves all extremities and awake; no focal motor deficits Psychiatric: A+Ox3, euthymic affect Results & Data Results & Data ([facility]) Vital Signs (Past 12 Hours) Vital Signs Temp Pulse Pulse Pulse Resp BP Pulse Ox 01/23/21 16:08 84 24 92 01/23/21 15:44 36.8 C 103 H 26 H 118/76 93 01/23/21 15:27 92 H 01/23/21 11:27 70 22 95 01/23/21 11:02 36.4 C L 90 19 122/66 92 01/23/21 08:00 70 01/23/21 07:40 84 22 93 01/23/21 07:25 36.5 C 84 19 120/65 93 Laboratory Results 01/23/21 01/23/21 01/23/21 Range/Units 20:27 17:14 11:39 Sodium (136-145) mmol/L Potassium (3.5-5.1) mmol/L Chloride (98-107) mmol/L Carbon Dioxide (21-32) mmol/L Anion Gap (3-11) BUN (7-18) mg/dl Creatinine (0.6-1.4) mg/dl Est Cr Clr Drug Dosing ml/min Est GFR ( Amer) ml/min Est GFR (Non-Af Amer) ml/min BUN/Creatinine Ratio (10-20) Glucose (70-99) mg/dl POC Glucose 173 H 148 H 216 H (70-99) mg/dl Calcium (8.5-10.1) mg/dl Magnesium (1.8-2.4) mg/dl C-Reactive Protein (0-0.29) mg/dl 01/23/21 01/23/21 Range/Units 07:56 06:10 Sodium 140 (136-145) mmol/L Potassium 3.7 (3.5-5.1) mmol/L Chloride 107 (98-107) mmol/L Carbon Dioxide 24 (21-32) mmol/L Anion Gap 9.0 (3-11) BUN 29 H (7-18) mg/dl Creatinine 0.62 (0.6-1.4) mg/dl Est Cr Clr Drug Dosing 152.5 ml/min Est GFR ( Amer) 120.7 ml/min Est GFR (Non-Af Amer) 104.1 ml/min BUN/Creatinine Ratio 47.0 H (10-20) Glucose 69 L (70-99) mg/dl POC Glucose 73 (70-99) mg/dl Calcium 8.9 (8.5-10.1) mg/dl Magnesium 1.9 (1.8-2.4) mg/dl C-Reactive Protein 4.37 H (0-0.29) mg/dl PG Care Time/CCT Total # of Minutes Spent Total Time Spent with Patient: Total time spent is greater than 50% in coordination of care (as documented) at patient's floor/unit and/or counseling patient: Coding Level of Care Code 04157 Subseq Hosp Care Lvl 3 Diagnoses Pneumonia due to COVID-19 virus U07.1; J12.82 Hypoxia R09.02 Diabetes mellitus E11.9 Hypertension I10 Morbid obesity with BMI of 40.0-44.9, adult E66.01; Z68.41 Hypokalemia E87.6 Diarrhea R19.7
[2021-01-23] MEDS: COUGH DROP (SUGAR FREE) LOZ 24 LOZ/1 BOX BUCCAL PRN (21:27)
[2021-01-24 07:05] LABS: BUN Creatinine Ratio 50.9 (10-20); Calcium 8.8 mg/dl (8.5-10.1); Creatinine Clr Calc Pharmacy 149.2 ml/min; Est GFR (African American) 119.1 ml/min; Est GFR (Non-African American) 102.7 ml/min; Magnesium 1.8 mg/dl (1.8-2.4); Potassium 4.1 mmol/L (3.5-5.1)
[2021-01-24] MEDS: INSULIN ASPART 100 UNITS/ML 3 ML PEN SC SCH ×4 (08:00→20:26)
[2021-01-24] MEDS ORDERED: ALBUT/IPRATROP 3MG/0.5MG NEB 3 ML VIAL NEB PRN (08:24)
[2021-01-24] MEDS: amLODIPine BESYLATE 5 MG TAB PO SCH (08:43)
[2021-01-24] MEDS: CHOLECALCIFEROL 1,000 UNITS 25 MCG TAB PO SCH (08:43)
[2021-01-24] MEDS: ACETAMINOPHEN 325 MG TAB PO PRN (08:43)
[2021-01-24] MEDS: dexAMETHasone 6 MG in SYRINGE 0 ML IV SCH (08:43)
[2021-01-24] MEDS: BENZONATATE 100 MG CAPSULE PO SCH ×3 (08:43→20:11)
[2021-01-24] MEDS: POTASSIUM CHLORIDE CRTAB 20 MEQ TABCR PO SCH ×2 (08:43→20:11)
[2021-01-24] MEDS: lisinopril 20 MG TAB PO SCH (08:43)
[2021-01-24] MEDS: FUROSEMIDE 20 MG in SYRINGE 0 ML IV SCH ×2 (08:43→17:40)
[2021-01-24] MEDS: ZINC SULFATE 220 MG CAPSULE PO SCH (08:43)
[2021-01-24] MEDS: ENOXAPARIN INJ 60 MG/0.6 ML SYR SQ SCH (08:44)
[2021-01-24] MEDS: FLUTICASONE PROPIONATE NA SPR 16 GM BTL SCH ×2 (08:45→20:25)
[2021-01-24] MEDS: guaiFENesin 600 MG TABCR PO SCH ×2 (08:45→20:11)
[2021-01-24] MEDS: INSULIN GLARGINE SOLOSTAR 100 UNITS/ML 3 ML PEN SC SCH ×2 (09:00→20:50)
[2021-01-24] MEDS: ALBUT/IPRATROP 3MG/0.5MG NEB 3 ML VIAL NEB SCH ×3 (10:06→19:35)
[2021-01-24] MEDS ORDERED: OPTIRAY 320 125ml IV ONE (18:42)
--- NOTE | 2021-01-24 18:53 | CT Scan Report ---
CT head/brain wo con CLINICAL HISTORY: 65 years-old Male with right sided weakness, r/o CVA. Acute strokelike symptoms TECHNIQUE: Multiple axial CT images of the head were obtained without contrast. A dose lowering tech nique was utilized adhering to the principles of ALARA. CT DOSE: 691.05 mGy.cm COMPARISON: None. FINDINGS: There is a 6 mm hyperdense focus noted within the shelton radiata of the left frontal lobe on image 19 series 2. Senescent calcifications of the lentiform nuclei. Minimal involutional changes. There is n o midline shift, intracranial mass, hydrocephalus, territorial ischemia or abnormal extra-axial colle ction. The calvarium is intact. The paranasal sinuses, mastoid air cells, and middle ear cavities are clear . IMPRESSION: 6 mm hyperdense focus within the shelton radiata of the left frontal lobe may represent a tiny acute i ntraparenchymal hematoma versus parenchymal calcification. Follow-up head CT in 12 to 24 hours is rec ommended to further evaluate. Findings were discussed with Ruthann Magaña on 01/24/2021 at 6:50 PM. ACT 112: Negative or not required by law. The above report was generated using voice recognition software. It may contain grammatical, syntax o r spelling errors. Electronically signed by: Junior Jansen M.D. 01/24/2021 6:52 PM
--- NOTE | 2021-01-24 18:57 | Hospitalist Progress Note ---
Date of Service January 24, 2021 Assessment & Plan (1) Pneumonia due to COVID-19 virus: Plan: Chest x-ray with bilateral airspace opacities and interstitial thickening suggestive of viral pneumonia With acute respiratory failure with hypoxia Remains on high flow nasal cannula -currently on 40 L and 80-85% FiO2 which is a slight improvement Continue dexamethasone 6 mg IV daily x 10 days, day 10-discontinue now Remdesivir IV daily, completed 5 days on 01/19 Azithromycin 500 mg IV daily, completed 7 days on 01/21 Continue guaifenesin extended release 1200 mg p.o. twice daily Vitamin D 5000 units p.o. daily Zinc sulfate 20 mg p.o. daily Proventil HFA 2 puffs PRN Make DuoNeb scheduled CRP was trending down <4, no role for Tocilizumab initially, however CRP then increased again to 7.76 but is back down to 4 Continue to get out of bed and sitting up in chair, side sleeping as he cannot tolerate prone position -Continue flutter valve,incentive spirometer (great compliance, can pull in 2000-2500mL) at high risk for deteriorating and needing ventilator, especially because he cannot lay prone He cannot tolerate BiPAP -Continue diuresis with Lasix 20 mg IV twice daily -Continue to wean off supplemental O2 as tolerated (2) CVA (cerebral vascular accident): Plan: On the evening of 01/24, developed acute onset of right upper extremity weakness and right sided facial droop-stroke alert was called CT head with 6 mm left shelton radiata hyperdensity which could represent hemorrhage versus calcification, no old imaging to compare to Telestroke neurologist recommended holding Lovenox, no antiplatelets, repeat CT head tomorrow to reassess for hemorrhage Discussed with neurosurgeon who reported that Lovenox could be continued, but will hold off for now as per neurologist recommendation CT angiogram head and neck with left 65% LICA stenosis at the proximal cervical segment and right less than 50% stenosis of proximal right ICA. 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 until speech therapy evaluation as he fails dysphagia screen with persistent slight right facial droop (3) Hypoxia: Plan: As above, secondary to Covid-19 pneumonia -Continue Lasix 20mg IV to twice daily for negative fluid balance, Cr and BUN stable, making urine (4) Diabetes mellitus: Plan: With significant hyperglycemia which then improved with increased doses of insulin, but then became hypoglycemic later in the evening on 01/24 Continue NovoLog sliding scale and keep Lantus the same at 15 units twice daily but hold Lantus for this evening as he is n.p.o. after stroke Hemoglobin A1c significantly uncontrolled at 9.3% He will need close follow-up with his PCP after discharge Holding home metformin and Jardiance (5) Hypertension: Plan: Blood pressures acceptable-permissive hyper tension in the setting of TIA/CVA Hold Norvasc and lisinopril (6) Morbid obesity with BMI of 40.0-44.9, adult: Plan: BMI 40.4 Needs weight loss (7) Hypokalemia: Plan: Improved with replacement Hold oral potassium while n.p.o. Follow BMP and magnesium (8) Diarrhea: Plan: With multiple episodes daily-likely secondary to Covid-19 and also was on azithromycin Azithromycin now completed C. difficile checked and was negative Diarrhea is now resolved Plan: Lovenox SQ now on hold due to possible intracranial hemorrhage Disposition-continued stay on telemetry Admission and Anticipated Discharge Date Admission Date: January 15, 2021 Subjective Pt was seen at 1800 and reported having RUE weakness and numbness in his right hand for the last 30 min. Last known well was 1730 as per nursing after he ate dinner. His glucose was 75 and he was given apple juice. She went back to check his glucose at 1755 and noted the weakness and right facial droop. He denies headache, no chest pain. Remains on HFNC at 85% FiO2. BP was 130s/80s, was in a NSR on tele, normal rate. POx was 90%. He had a NIH score of 5 at that time. A stroke alert was called and he was taken to CT head, CTA head/neck. When he returned from the CT scanner, his symptoms had almost completely resolved and he regained full strength in the right upper extremity, although remained with a very slight droop of the corner of his mouth on the right side with a continued slight tongue deviation. A telestroke consultation was performed and they recommended against TPA, and the neurologist recommended to hold Lovenox and any antiplatelets until the possible 6 mm parenchymal hemorrhage was proven to not be expanding. I also discussed his care with the neurosurgeon on the telestroke consultation who thought that even if it is a true intracranial hemorrhage, that he could still be given Lovenox for DVT prophylaxis. Prior to the stroke event, he had actually been doing okay throughout the day and had been out of bed to chair and is eating and drinking, denies shortness of breath unless he exerts himself. Has remained on high flow nasal cannula at 40 L and 80 to 85% FiO2 Telemetry with normal sinus rhythm and PVCs with rates in the 80s to 100s. Review of Systems Review of Systems: All systems reviewed & are unremarkable except as noted in HPI & below Physical Exam Constitutional: WD/WN, vitals as above + morbidly obese Eyes: PERRL, conjunctivae normal, anicteric sclerae ENMT: external ear and nose normal, oropharynx normal Slight right facial droop Neck: trachea midline, no thyromegaly Respiratory: normal respiratory effort Auscultation: + diminished lung sounds (Throughout due to body habitus) and + crackles (Lower lung chang bilaterally) Cardiovascular: Rate/Rhythm: regular rate and regular rhythm Heart Sounds: no murmur Extremities: + edema (1+ edema of the legs bilaterally) Chest (Breasts): Chest: normal inspection of chest Gastrointestinal (Abdomen): normal bowel sounds, soft, nontender, no hepatosplenomegaly Musculoskeletal: Extremities: extremities normal to inspection; no cyanosis an d no clubbing Skin: no rashes, warm and dry Neurologic: + focal motor deficit (Right upper extremity 2/5 strength throughout, otherwise 5/5 throughout) and awake; + CN's not intact (Intact except right facial droop and right tongue deviation) Speech / Cognition: normal speech, no expressive aphasia and normal cognition Motor/Sensory: + pronator drift (In right upper extremity); no sensory deficit (Intact to light touch throughout upper and lower extremities bilaterally) Coordination: + abnormal [id number] test (Not able to perform initially in the right upper extremity) Psychiatric: A+Ox3, euthymic affect Results & Data Results & Data ([facility]) Vital Signs (Past 12 Hours) Vital Signs Temp Pulse Pulse Pulse Resp BP Pulse Ox 01/24/21 18:01 105 H 24 130/82 88 L 01/24/21 16:03 36.7 C 88 18 132/72 92 01/24/21 15:45 96 H 01/24/21 14:52 91 H 22 93 01/24/21 13:20 93 H 20 90 01/24/21 11:59 36.4 C L 92 H 22 125/70 95 01/24/21 11:50 90 20 90 01/24/21 11:12 36.8 C 98 H 20 130/72 92 01/24/21 08:00 69 01/24/21 07:15 90 26 H 88 L 01/24/21 07:12 36.4 C L 70 20 109/64 92 Laboratory Results 01/24/21 01/24/21 01/24/21 Range/Units 20:08 20:08 20:05 WBC (4.8-10.8) K/uL RBC (4.7-6.1) M/uL Hgb (14.0-18.0) g/dL Hct (42-52) % MCV (80-100) fL MCH (25-34) pg MCHC (32-36) g/dL RDW Std Deviation (36.4-46.3) fL RDW Coeff of Carmela (11.5-14.5) % Plt Count (130-400) K/uL MPV (7.4-10.4) fL Immature Gran % (Auto) % Neut % (Auto) % Lymph % (Auto) % Gillespie % (Auto) % Eos % (Auto) % Baso % (Auto) % Neut # (Auto) (1.4-6.5) K/uL Lymph # (Auto) (1.2-3.4) K/uL Gillespie # (Auto) (0.11-0.59) K/uL Eos # (Auto) (0-0.5) K/uL Baso # (Auto) (0-0.2) K/uL Immature Gran # (Auto) (0.00-0.02) K/uL PT (9.0-12.0) Seconds INR (0.9-1.1) APTT Pending PTT Ratio Pending Sodium Pending (136-145) mmol/L Potassium Pending (3.5-5.1) mmol/L Chloride Pending (98-107) mmol/L Carbon Dioxide Pending (21-32) mmol/L Anion Gap Pending (3-11) BUN Pending (7-18) mg/dl Creatinine Pending (0.6-1.4) mg/dl Est Cr Clr Drug Dosing Pending ml/min Est GFR ( Amer) Pending ml/min Est GFR (Non-Af Amer) Pending ml/min BUN/Creatinine Ratio Pending (10-20) Glucose Pending (70-99) mg/dl POC Glucose 64 L* (70-99) mg/dl Calcium Pending (8.5-10.1) mg/dl Magnesium (1.8-2.4) mg/dl Total Bilirubin Pending AST Pending ALT Pending Alkaline Phosphatase Pending Total Protein Pending Albumin Pending Globulin Pending Albumin/Globulin Ratio Pending Blood Type Antibody Screen 01/24/21 01/24/21 01/24/21 Range/Units 18:44 18:44 18:44 WBC (4.8-10.8) K/uL RBC (4.7-6.1) M/uL Hgb (14.0-18.0) g/dL Hct (42-52) % MCV (80-100) fL MCH (25-34) pg MCHC (32-36) g/dL RDW Std Deviation (36.4-46.3) fL RDW Coeff of Carmela (11.5-14.5) % Plt Count (130-400) K/uL MPV (7.4-10.4) fL Immature Gran % (Auto) % Neut % (Auto) % Lymph % (Auto) % Gillespie % (Auto) % Eos % (Auto) % Baso % (Auto) % Neut # (Auto) (1.4-6.5) K/uL Lymph # (Auto) (1.2-3.4) K/uL Gillespie # (Auto) (0.11-0.59) K/uL Eos # (Auto) (0-0.5) K/uL Baso # (Auto) (0-0.2) K/uL Immature Gran # (Auto) (0.00-0.02) K/uL PT 10.4 (9.0-12.0) Seconds INR 1.0 (0.9-1.1) APTT PTT Ratio Sodium Cancelled (136-145) mmol/L Potassium Cancelled (3.5-5.1) mmol/L Chloride Cancelled (98-107) mmol/L Carbon Dioxide Cancelled (21-32) mmol/L Anion Gap Cancelled (3-11) BUN Cancelled (7-18) mg/dl Creatinine Cancelled (0.6-1.4) mg/dl Est Cr Clr Drug Dosing Cancelled ml/min Est GFR ( Amer) Cancelled ml/min Est GFR (Non-Af Amer) Cancelled ml/min BUN/Creatinine Ratio Cancelled (10-20) Glucose Cancelled (70-99) mg/dl POC Glucose (70-99) mg/dl Calcium Cancelled (8.5-10.1) mg/dl Magnesium (1.8-2.4) mg/dl Total Bilirubin Cancelled AST Cancelled ALT Cancelled Alkaline Phosphatase Cancelled Total Protein Cancelled Albumin Cancelled Globulin Cancelled Albumin/Globulin Ratio Cancelled Blood Type A Positive Antibody Screen NEGATIVE 01/24/21 01/24/21 01/24/21 Range/Units 18:44 18:18 17:57 WBC 9.90 (4.8-10.8) K/uL RBC 5.20 (4.7-6.1) M/uL Hgb 15.1 (14.0-18.0) g/dL Hct 46.1 (42-52) % MCV 88.7 (80-100) fL MCH 29.0 (25-34) pg MCHC 32.8 (32-36) g/dL RDW Std Deviation 43.8 (36.4-46.3) fL RDW Coeff of Carmela 13.5 (11.5-14.5) % Plt Count 458 H (130-400) K/uL MPV 9.4 (7.4-10.4) fL Immature Gran % (Auto) 3.6 % Neut % (Auto) 79.9 % Lymph % (Auto) 10.2 % Gillespie % (Auto) 6.0 % Eos % (Auto) 0.1 % Baso % (Auto) 0.2 % Neut # (Auto) 7.91 H (1.4-6.5) K/uL Lymph # (Auto) 1.01 L (1.2-3.4) K/uL Gillespie # (Auto) 0.59 (0.11-0.59) K/uL Eos # (Auto) 0.01 (0-0.5) K/uL Baso # (Auto) 0.02 (0-0.2) K/uL Immature Gran # (Auto) 0.36 H (0.00-0.02) K/uL PT (9.0-12.0) Seconds INR (0.9-1.1) APTT PTT Ratio Sodium (136-145) mmol/L Potassium (3.5-5.1) mmol/L Chloride (98-107) mmol/L Carbon Dioxide (21-32) mmol/L Anion Gap (3-11) BUN (7-18) mg/dl Creatinine (0.6-1.4) mg/dl Est Cr Clr Drug Dosing ml/min Est GFR ( Amer) ml/min Est GFR (Non-Af Amer) ml/min BUN/Creatinine Ratio (10-20) Glucose (70-99) mg/dl POC Glucose 109 H 75 (70-99) mg/dl Calcium (8.5-10.1) mg/dl Magnesium (1.8-2.4) mg/dl Total Bilirubin AST ALT Alkaline Phosphatase Total Protein Albumin Globulin Albumin/Globulin Ratio Blood Type Antibody Screen 01/24/21 01/24/21 01/24/21 Range/Units 17:56 16:26 12:22 WBC (4.8-10.8) K/uL RBC (4.7-6.1) M/uL Hgb (14.0-18.0) g/dL Hct (42-52) % MCV (80-100) fL MCH (25-34) pg MCHC (32-36) g/dL RDW Std Deviation (36.4-46.3) fL RDW Coeff of Carmela (11.5-14.5) % Plt Count (130-400) K/uL MPV (7.4-10.4) fL Immature Gran % (Auto) % Neut % (Auto) % Lymph % (Auto) % Gillespie % (Auto) % Eos % (Auto) % Baso % (Auto) % Neut # (Auto) (1.4-6.5) K/uL Lymph # (Auto) (1.2-3.4) K/uL Gillespie # (Auto) (0.11-0.59) K/uL Eos # (Auto) (0-0.5) K/uL Baso # (Auto) (0-0.2) K/uL Immature Gran # (Auto) (0.00-0.02) K/uL PT (9.0-12.0) Seconds INR (0.9-1.1) APTT PTT Ratio Sodium (136-145) mmol/L Potassium (3.5-5.1) mmol/L Chloride (98-107) mmol/L Carbon Dioxide (21-32) mmol/L Anion Gap (3-11) BUN (7-18) mg/dl Creatinine (0.6-1.4) mg/dl Est Cr Clr Drug Dosing ml/min Est GFR ( Amer) ml/min Est GFR (Non-Af Amer) ml/min BUN/Creatinine Ratio (10-20) Glucose (70-99) mg/dl POC Glucose 71 110 H 241 H (70-99) mg/dl Calcium (8.5-10.1) mg/dl Magnesium (1.8-2.4) mg/dl Total Bilirubin AST ALT Alkaline Phosphatase Total Protein Albumin Globulin Albumin/Globulin Ratio Blood Type Antibody Screen 01/24/21 01/24/21 01/24/21 Range/Units 11:57 08:17 06:08 WBC (4.8-10.8) K/uL RBC (4.7-6.1) M/uL Hgb (14.0-18.0) g/dL Hct (42-52) % MCV (80-100) fL MCH (25-34) pg MCHC (32-36) g/dL RDW Std Deviation (36.4-46.3) fL RDW Coeff of Carmela (11.5-14.5) % Plt Count (130-400) K/uL MPV (7.4-10.4) fL Immature Gran % (Auto) % Neut % (Auto) % Lymph % (Auto) % Gillespie % (Auto) % Eos % (Auto) % Baso % (Auto) % Neut # (Auto) (1.4-6.5) K/uL Lymph # (Auto) (1.2-3.4) K/uL Gillespie # (Auto) (0.11-0.59) K/uL Eos # (Auto) (0-0.5) K/uL Baso # (Auto) (0-0.2) K/uL Immature Gran # (Auto) (0.00-0.02) K/uL PT (9.0-12.0) Seconds INR (0.9-1.1) APTT PTT Ratio Sodium 137 (136-145) mmol/L Potassium 4.1 (3.5-5.1) mmol/L Chloride 106 (98-107) mmol/L Carbon Dioxide 25 (21-32) mmol/L Anion Gap 6.0 (3-11) BUN 32 H (7-18) mg/dl Creatinine 0.64 (0.6-1.4) mg/dl Est Cr Clr Drug Dosing 149.2 ml/min Est GFR ( Amer) 119.1 ml/min Est GFR (Non-Af Amer) 102.7 ml/min BUN/Creatinine Ratio 50.9 H (10-20) Glucose 103 H (70-99) mg/dl POC Glucose 301 H* 87 (70-99) mg/dl Calcium 8.8 (8.5-10.1) mg/dl Magnesium 1.8 (1.8-2.4) mg/dl Total Bilirubin AST ALT Alkaline Phosphatase Total Protein Albumin Globulin Albumin/Globulin Ratio Blood Type Antibody Screen 01/23/21 Range/Units 20:27 WBC (4.8-10.8) K/uL RBC (4.7-6.1) M/uL Hgb (14.0-18.0) g/dL Hct (42-52) % MCV (80-100) fL MCH (25-34) pg MCHC (32-36) g/dL RDW Std Deviation (36.4-46.3) fL RDW Coeff of Carmela (11.5-14.5) % Plt Count (130-400) K/uL MPV (7.4-10.4) fL Immature Gran % (Auto) % Neut % (Auto) % Lymph % (Auto) % Gillespie % (Auto) % Eos % (Auto) % Baso % (Auto) % Neut # (Auto) (1.4-6.5) K/uL Lymph # (Auto) (1.2-3.4) K/uL Gillespie # (Auto) (0.11-0.59) K/uL Eos # (Auto) (0-0.5) K/uL Baso # (Auto) (0-0.2) K/uL Immature Gran # (Auto) (0.00-0.02) K/uL PT (9.0-12.0) Seconds INR (0.9-1.1) APTT PTT Ratio Sodium (136-145) mmol/L Potassium (3.5-5.1) mmol/L Chloride (98-107) mmol/L Carbon Dioxide (21-32) mmol/L Anion Gap (3-11) BUN (7-18) mg/dl Creatinine (0.6-1.4) mg/dl Est Cr Clr Drug Dosing ml/min Est GFR ( Amer) ml/min Est GFR (Non-Af Amer) ml/min BUN/Creatinine Ratio (10-20) Glucose (70-99) mg/dl POC Glucose 173 H (70-99) mg/dl Calcium (8.5-10.1) mg/dl Magnesium (1.8-2.4) mg/dl Total Bilirubin AST ALT Alkaline Phosphatase Total Protein Albumin Globulin Albumin/Globulin Ratio Blood Type Antibody Screen Diagnostic Findings Head CT 01/24/21 18:05 CT head/brain wo con CLINICAL HISTORY: 65 years-old Male with right sided weakness, r/o CVA. Acute strokelike symptoms TECHNIQUE: Multiple axial CT images of the head were obtained without contrast. A dose lowering technique was utilized adhering to the principles of ALARA. CT DOSE: 691.05 mGy.cm COMPARISON: None. FINDINGS: There is a 6 mm hyperdense focus noted within the shelton radiata of the left frontal lobe on image 19 series 2. Senescent calcifications of the lentiform nuclei. Minimal involutional changes. There is no midline shift, intracranial mass, hydrocephalus, territorial ischemia or abnormal extra-axial collection. The calvarium is intact. The paranasal sinuses, mastoid air cells, and middle ear cavities are clear. IMPRESSION: 6 mm hyperdense focus within the shelton radiata of the left frontal lobe may represent a tiny acute intraparenchymal hematoma versus parenchymal calcification. Follow-up head CT in 12 to 24 hours is recommended to further evaluate. Findings were discussed with Ruthann Magaña on 01/24/2021 at 6:50 PM. ACT 112: Negative or not required by law. The above report was generated using voice recognition software. It may contain grammatical, syntax or spelling errors. Electronically signed by: Junior Jansen M.D. 01/24/2021 6:52 PM Head CTA 01/24/21 18:29 CT angio neck with con, CT angio head w con CLINICAL HISTORY: 65 years-old Male with CVA. Acute strokelike symptoms COMPARISON STUDY: Head CT of same day TECHNIQUE: Following the IV administration of 117 mL of Optiray, CT angiogram of the head and neck was performed from the aortic arch to the skull apex. Images are reviewed in the axial, sagittal, and coronal planes. 3-D MIPS images are created and assessed. IV contrast was administered without complication. All measurements were calculated based on NASCET criteria. A dose lowering technique was utilized adhering to the principles of ALARA. CT DOSE: 639.26 mGy.cm FINDINGS: Atherosclerosis of the proximal great vessels without high-grade narrowing. The imaged subclavian arteries are patent. There is atherosclerotic plaque of the left greater than right carotid bulbs. This results in less than 50% stenosis of the proximal right ICA and approximately 65% luminal narrowing of the proximal left ICA on image 189 series 2. Additional atherosclerotic plaque of the cavernous and supraclinoid segments of the internal carotid arteries without high-grade stenosis. The bilateral middle and anterior cerebral arteries are patent. The vertebral arteries are codominant. Atherosclerotic plaque abdomen the origin of the right vertebral artery results in moderate luminal narrowing. The basilar and posterior cerebral arteries appear patent. The cerebral venous sinuses are patent. There is a linear enhancing vessel within the shelton radiata of the left frontal lobe on image 41 series 5. No additional abnormal intracranial enhancement. Bilateral subpleural groundglass densities within the lung apices. Emphysema. Unremarkable soft tissues. Degenerative changes of the spine. IMPRESSION: 1. Atherosclerotic plaque of the left carotid bulb causes approximately 65% stenosis of the proximal cervical segment left ICA. 2. There is less than 50% stenosis of the proximal right ICA. 3. 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 This corresponds with the subcentimeter hyperdense focus seen on the noncontrast head CT. An acute hemorrhagic focus is considered unlikely, however as previously recommended a repeat follow-up head CT in 12-24 hours is recommended. ACT 112: Negative or not required by law. The above report was generated using voice recognition software. It may contain grammatical, syntax or spelling errors. Electronically signed by: Junior Jansen M.D. 01/24/2021 7:18 PM Neck CTA 01/24/21 18:29 CT angio neck with con, CT angio head w con CLINICAL HISTORY: 65 years-old Male with CVA. Acute strokelike symptoms COMPARISON STUDY: Head CT of same day TECHNIQUE: Following the IV administration of 117 mL of Optiray, CT angiogram of the head and neck was performed from the aortic arch to the skull apex. Images are reviewed in the axial, sagittal, and coronal planes. 3-D MIPS images are created and assessed. IV contrast was administered without complication. All measurements were calculated based on NASCET criteria. A dose lowering technique was utilized adhering to the principles of ALARA. CT DOSE: 639.26 mGy.cm FINDINGS: Atherosclerosis of the proximal great vessels without high-grade narrowing. The imaged subclavian arteries are patent. There is atherosclerotic plaque of the left greater than right carotid bulbs. This results in less than 50% stenosis of the proximal right ICA and approximately 65% luminal narrowing of the proximal left ICA on image 189 series 2. Additional atherosclerotic plaque of the cavernous and supraclinoid segments of the internal carotid arteries without high-grade stenosis. The bilateral middle and anterior cerebral arteries are pa tent. The vertebral arteries are codominant. Atherosclerotic plaque abdomen the origin of the right vertebral artery results in moderate luminal narrowing. The basilar and posterior cerebral arteries appear patent. The cerebral venous sinuses are patent. There is a linear enhancing vessel within the shelton radiata of the left frontal lobe on image 41 series 5. No additional abnormal intracranial enhancement. Bilateral subpleural groundglass densities within the lung apices. Emphysema. Unremarkable soft tissues. Degenerative changes of the spine. IMPRESSION: 1. Atherosclerotic plaque of the left carotid bulb causes approximately 65% stenosis of the proximal cervical segment left ICA. 2. There is less than 50% stenosis of the proximal right ICA. 3. 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 This corresponds with the subcentimeter hyperdense focus seen on the noncontrast head CT. An acute hem orrhagic focus is considered unlikely, however as previously recommended a repeat follow-up head CT in 12-24 hours is recommended. ACT 112: Negative or not required by law. The above report was generated using voice recognition software. It may contain grammatical, syntax or spelling errors. Electronically signed by: Junior Jansen M.D. 01/24/2021 7:18 PM PG Care Time/CCT Total # of Minutes Spent Total Time Spent with Patient: Total time spent is greater than 50% in coord ination of care (as documented) at patient's floor/unit and/or counseling patient: Prolonged Care Time Prolonged Care Time: Yes Total Prolonged Care Time: 120 I spent in additional 120 minutes in prolonged service time in care of this patient discussing results, doing stroke alert, discussing case with specialists, discussing the care of the patient with nursing staff, the patient, and his . Coding Level of Care Code 83837 Subseq Hosp Care Lvl 3 (25 - SIGNIFICANT, SEPARATELY IDENTIFIABLE ) Diagnoses Pneumonia due to COVID-19 virus U07.1; J12.82 Hypoxia R09.02 Diabetes mellitus E11.9 Hypertension I10 Morbid obesity with BMI of 40.0-44.9, adult E66.01; Z68.41 Hypokalemia E87.6 Diarrhea R19.7 CVA (cerebral vascular accident) I63.9 Additional Codes Prolonged Care Time - Prolonged Care Time: Yes ([id number])
[2021-01-24 19:04] LABS: Basophils # (auto) 0.02 K/uL (0-0.2); Basophils % (auto) 0.2 %; Eosinophils # (auto) 0.01 K/uL (0-0.5); Eosinophils % (auto) 0.1 %; Hematocrit (blood only) 46.1 % (42-52); Hemoglobin 15.1 g/dL (14.0-18.0); Immature Granulocytes # (auto) 0.36 K/uL (0.00-0.02); Immature Granulocytes % (auto) 3.6 %; Lymphocytes # (auto) 1.01 K/uL (1.2-3.4); Lymphocytes % (auto) 10.2 %; Mean Corpuscular Volume 88.7 fL (80-100); Mean Platelet Volume 9.4 fL (7.4-10.4); Monocytes # (auto) 0.59 K/uL (0.11-0.59); Neutrophils # (auto) 7.91 K/uL (1.4-6.5); Neutrophils % (auto) 79.9 %; Platelet Count 458 K/uL (130-400); RDW Coefficient of Variation 13.5 % (11.5-14.5); RDW Standard Deviation 43.8 fL (36.4-46.3)
[2021-01-24 19:05] LABS: Mean Corpuscular Hgb Conc 32.8 g/dL (32-36)
[2021-01-24 19:17] LABS: Prothrombin Time 10.4 Seconds (9.0-12.0)
--- NOTE | 2021-01-24 19:19 | CT Scan Report ---
CT angio neck with con, CT angio head w con CLINICAL HISTORY: 65 years-old Male with CVA. Acute strokelike symptoms COMPARISON STUDY: Head CT of same day TECHNIQUE: Following the IV administration of 117 mL of Optiray, CT angiogram of the head and neck wa s performed from the aortic arch to the skull apex. Images are reviewed in the axial, sagittal, and c oronal planes. 3-D MIPS images are created and assessed. IV contrast was administered without complic ation. All measurements were calculated based on NASCET criteria. A dose lowering technique was util ized adhering to the principles of ALARA. CT DOSE: 639.26 mGy.cm FINDINGS: Atherosclerosis of the proximal great vessels without high-grade narrowing. The imaged subclavian art eries are patent. There is atherosclerotic plaque of the left greater than right carotid bulbs. This results in less than 50% stenosis of the proximal right ICA and approximately 65% luminal narrowing o f the proximal left ICA on image 189 series 2. Additional atherosclerotic plaque of the cavernous and supraclinoid segments of the internal carotid arteries without high-grade stenosis. The bilateral mi ddle and anterior cerebral arteries are patent. The vertebral arteries are codominant. Atheroscleroti c plaque abdomen the origin of the right vertebral artery results in moderate luminal narrowing. The basilar and posterior cerebral arteries appear patent. The cerebral venous sinuses are patent. There is a linear enhancing vessel within the shelton radiata of the left frontal lobe on image 41 series 5. No additional abnormal intracranial enhancement. Bilateral subpleural groundglass densities within the lung apices. Emphysema. Unremarkable soft tissu es. Degenerative changes of the spine. IMPRESSION: 1. Atherosclerotic plaque of the left carotid bulb causes approximately 65% stenosis of the proximal cervical segment left ICA. 2. There is less than 50% stenosis of the proximal right ICA. 3. Linear enhancing vessel within the shelton radiata of the left frontal lobe is suggestive of a prob able developmental venous anomaly. This corresponds with the subcentimeter hyperdense focus seen on t he noncontrast head CT. An acute hemorrhagic focus is considered unlikely, however as previously taylor mmended a repeat follow-up head CT in 12-24 hours is recommended. ACT 112: Negative or not required by law. The above report was generated using voice recognition software. It may contain grammatical, syntax o r spelling errors. Electronically signed by: Junior Jansen M.D. 01/24/2021 7:18 PM
[2021-01-24] MEDS: DEXTROSE 50% 50 ML SYRINGE IV PRN ×2 (20:20→22:36)
[2021-01-24 20:40] LABS: Partial Thromboplastin Time 25.6 Seconds (21.0-31.0)
[2021-01-24 20:48] LABS: Albumin Level 2.4 gm/dl (3.4-5.0); BUN Creatinine Ratio 36.3 (10-20); Calcium 9.1 mg/dl (8.5-10.1); Creatinine Clr Calc Pharmacy 102.6 ml/min; Est GFR (African American) 99.5 ml/min; Est GFR (Non-African American) 85.8 ml/min; Potassium 4.1 mmol/L (3.5-5.1)
[2021-01-24] MEDS ORDERED: PHARMACIST DISCHARGE MED REC CONSULT PRN (20:50)
[2021-01-24 20:51] LABS: Albumin Globulin Ratio 0.6 (0.9-2); Bilirubin,Total 0.4 mg/dl (0.2-1); Globulin 4.3 gm/dl (2.5-4.0); Total Protein 6.7 gm/dl (6.4-8.2)
[2021-01-25] MEDS: ALBUT/IPRATROP 3MG/0.5MG NEB 3 ML VIAL NEB SCH ×4 (00:39→19:46)
[2021-01-25 07:27] LABS: Basophils # (auto) 0.04 K/uL (0-0.2); Basophils % (auto) 0.3 %; Eosinophils # (auto) 0.04 K/uL (0-0.5); Eosinophils % (auto) 0.3 %; Hematocrit (blood only) 45.3 % (42-52); Hemoglobin 15.3 g/dL (14.0-18.0); Immature Granulocytes # (auto) 0.45 K/uL (0.00-0.02); Immature Granulocytes % (auto) 3.8 %; Lymphocytes # (auto) 2.22 K/uL (1.2-3.4); Lymphocytes % (auto) 18.9 %; Mean Corpuscular Hgb Conc 33.8 g/dL (32-36); Mean Corpuscular Volume 85.8 fL (80-100); Mean Platelet Volume 9.5 fL (7.4-10.4); Monocytes # (auto) 1.02 K/uL (0.11-0.59); Monocytes % (auto) 8.7 %; Platelet Count 392 K/uL (130-400); RDW Coefficient of Variation 13.5 % (11.5-14.5); RDW Standard Deviation 42.3 fL (36.4-46.3); Red Blood Count 5.28 M/uL (4.7-6.1); White Blood Count 11.77 K/uL (4.8-10.8)
[2021-01-25 07:48] LABS: Partial Thromboplastin Time 25.1 Seconds (21.0-31.0); Prothrombin Time 10.2 Seconds (9.0-12.0)
[2021-01-25 07:58] LABS: Creatinine Clr Calc Pharmacy 145.8 ml/min; Est GFR (African American) 119.1 ml/min; Est GFR (Non-African American) 102.7 ml/min; Potassium 4.2 mmol/L (3.5-5.1)
[2021-01-25] MEDS: INSULIN ASPART 100 UNITS/ML 3 ML PEN SC SCH ×4 (09:24→21:25)
[2021-01-25] MEDS: ATORVASTATIN 40 MG TAB PO SCH (09:25)
[2021-01-25] MEDS: FLUTICASONE PROPIONATE NA SPR 16 GM BTL SCH ×2 (09:25→21:28)
[2021-01-25] MEDS: FUROSEMIDE 20 MG in SYRINGE 0 ML IV SCH (09:25)
[2021-01-25] MEDS: INSULIN GLARGINE SOLOSTAR 100 UNITS/ML 3 ML PEN SC SCH ×2 (09:26→21:27)
--- NOTE | 2021-01-25 13:05 | CT Scan Report ---
CT OF THE HEAD WITHOUT CONTRAST CLINICAL HISTORY: f/u intracranial hemorrhage COMPARISON STUDY: Head CT and CTA of the head January 24, 2021. CT DOSE: 729.78 mGycm TECHNIQUE: Helical axial images of the head were obtained without IV contrast. Automated exposure con trol was utilized for the study. A dose lowering technique was utilized adhering to the principles o f ALARA. FINDINGS: No acute intracranial hemorrhage is present. Ventricular system is normal. Basal cisterns a re patent. No extra axial collections are present. There are no CT findings to suggest acute dural si nus thrombosis or acute territorial infarct. The linear hyperdensity within the left frontal lobe on head CT of January 24, 2021 is no longer identified. There is a residual punctate hyperdensity on a xial image 17. A calcification within the left sylvian fissure is unchanged. Visualized portions of t he sinuses and mastoid air cells are clear. There are no significant calvarial abnormalities. IMPRESSION: 1. No acute intracranial hemorrhage. 2. Linear hyperdensity within the left frontal lobe on prior head CT no longer visualized. A punctate residual hyperdensity on this exam could reflect trace residual thrombus or less likely contrast. ACT 112: Negative or not required by law. Electronically signed by: Lawrence Faulkner M.D. 01/25/2021 1:04 PM
[2021-01-25] MEDS: ACETAMINOPHEN 325 MG TAB PO PRN (13:35)
[2021-01-25] MEDS: CLOPIDOGREL BISULFATE 75 MG TAB PO SCH (16:25)
--- NOTE | 2021-01-25 17:56 | XCELERA ---
[id number]
--- NOTE | 2021-01-25 22:11 | Hospitalist Progress Note ---
Date of Service January 25, 2021 Assessment & Plan (1) Pneumonia due to COVID-19 virus: Plan: Chest x-ray with bilateral airspace opacities and interstitial thickening suggestive of viral pneumonia With acute respiratory failure with hypoxia Remains on high flow nasal cannula -currently on 40 L and 100 % FiO2 which is worse than previous Completed a 10-day course of dexamethasone 6 mg IV daily Remdesivir IV daily, completed 5 days on 01/19 Azithromycin 500 mg IV daily, completed 7 days on 01/21 There was no role for tocilizumab Continue guaifenesin extended release 1200 mg p.o. twice daily Continue scheduled duo nebs Continue to get out of bed and sitting up in chair, side sleeping as he cannot tolerate prone position -Continue flutter valve,incentive spirometer (great compliance, can pull in 2000-2500mL) at high risk for deteriorating and needing ventilator, especially because he cannot lay prone He cannot tolerate BiPAP although he has tolerated for short periods to go down for CT scans -Hold on further diuresis with Lasix 20 mg IV twice daily due to allowing permissive hypertension in the setting of acute stroke -Continue to wean off supplemental O2 as tolerated (2) CVA (cerebral vascular accident): Plan: On the evening of 01/24, developed acute onset of right upper extremity weakness and right sided facial droop-stroke alert was called CT head with 6 mm left shelton radiata hyperdensity which could represent hemorrhage versus calcification, no old imaging to compare to Telestroke neurologist recommended holding Lovenox, no antiplatelets, repeat CT head the following day to reassess for hemorrhage Discussed with neurosurgeon who reported that Lovenox could be continued for DVT prophylaxis, but continued to hold off for now as per neurologist recommendation CT angiogram head and neck with left 65% LICA stenosis at the proximal cervical segment and right less than 50% stenosis of proximal right ICA. 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 that corresponds with the hyperdense focus seen on the CT head noncontrast-acute hemorrhagic focus considered unlikely Repeat CT head noncontrast on 01/25 is negative for hemorrhage -He cannot tolerate lying flat on his back on BiPAP for the amount of time it will take to get an MRI-hold off on MRI for now On 01/25, blood pressures are relatively low in the 1 teens over 50s to 60s and his right upper extremity weakness and right facial droop have returned but not quite as significant as the initial event He clearly had an acute ischemic CVA -Now that there is no hemorrhage, start Plavix 75 mg p.o. once daily as per my discussion with neurology -Plan to get MRI of the brain later in the admission when his respiratory status is improved -lipid panel good but starting atorvastatin 40 mg daily anyway given acute stroke -Echocardiogram with mild RV dilation, but negative bubble study and normal otherwise -Continue neuro checks, PT/OT/speech therapy -Appreciate speech therapy consultation-cleared for diet -Permissive hypertension-continue holding lisinopril and amlodipine, and will now discontinue IV Lasix-would not give IV fluids at this time but continue to monitor blood pressures-if drop less than 100 systolic, would certainly give a bolus of fluids -Consulted neurology by phone given that the patient is in the Covid unit- neurology recommends Plavix, statin, brain MRI when able to (3) Hypoxia: Plan: As above, secondary to Covid-19 pneumonia -Hold off on further the Lasix for now as above for permissive hypertension (4) Diabetes mellitus: Plan: With significant hyperglycemia which then improved with increased doses of insulin, but then became hypoglycemic later in the evening on 01/24 Hypoglycemic again on the morning of 01/25 despite holding all insulin the elmo desai before Change NovoLog to correction factor of 30 and no carbohydrate coverage Decrease Lantus to 10 units at bedtime Hemoglobin A1c significantly uncontrolled at 9.3% He will need close follow-up with his PCP after discharge Holding home metformin and Jardiance (5) Hypertension: Plan: Blood pressures acceptable-permissive hypertension in the setting of TIA/CVA Hold Norvasc and lisinopril (6) Morbid obesity with BMI of 40.0-44.9, adult: Plan: BMI 40.4 Needs weight loss (7) Hypokalemia: Plan: Improved with replacement Follow BMP and magnesium (8) Diarrhea: Plan: With multiple episodes daily-likely secondary to Covid-19 and also was on azithromycin Azithromycin now completed C. difficile checked and was negative Diarrhea is now resolved Plan: Lovenox SQ was on hold due to possible intracranial hemorrhage, but now will restart at 40 mg once daily Disposition-continued stay on telemetry Admission and Anticipated Discharge Date Admission Date: January 15, 2021 Subjective Patient has been on 100% FiO2 and 40 L for most of the day due to low oxygen saturations. He feels short of breath at times. The weakness in his right arm got somewhat worse today than last night. No new focal neurological symptoms. Denies headache Review of Systems Review of Systems: All systems reviewed & are unremarkable except as noted in HPI & below Physical Exam Constitutional: WD/WN, vitals as above + morbidly obese Eyes: PERRL, conjunctivae normal, anicteric sclerae + anicteric sclerae ENMT: external ear and nose normal, oropharynx normal Neck: trachea midline, no thyromegaly Respiratory: normal respiratory effort Auscultation: + diminished lung sounds (Throughout due to body habitus) and + crackles (Lower lung chang bilaterally) Cardiovascular: Rate/Rhythm: regular rate and regular rhythm Heart Sounds: no murmur Extremities: + edema (1+ edema of the legs bilaterally) Chest (Breasts): Chest: normal inspection of chest Gastrointestinal (Abdomen): normal bowel sounds, soft, nontender, no hepatosplenomegaly Musculoskeletal: Extremities: extremities normal to inspection; no cyanosis and no clubbing Skin: no rashes, warm and dry Neurologic: + focal motor deficit (Right upper extremity 3/5 strength throughout, otherwise 5/5 throughout) and awake; + CN's not intact (Intact except right facial droop and right tongue deviation) Speech / Cognition: normal speech, no expressive aphasia and normal cognition Motor/Sensory: no sensory deficit (Intact to light touch throughout upper and lower extremities bilaterally) Psychiatric: A+Ox3, euthymic affect Results & Data Results & Data ([facility]) Vital Signs (Past 12 Hours) Vital Signs Temp Pulse Pulse Resp BP Pulse Ox Pulse Ox 01/25/21 19:46 106 H 24 93 01/25/21 16:00 94 H 01/25/21 15:58 93 H 21 87 L 01/25/21 15:33 36.6 C 90 23 119/59 L 91 01/25/21 13:06 90 01/25/21 12:52 98 H 18 88 L 01/25/21 11:50 36.6 C 101 H 24 113/64 88 L 01/25/21 11:22 104 H 18 90 Pulse Ox Pulse Ox 01/25/21 19:46 01/25/21 16:00 01/25/21 15:58 01/25/21 15:33 01/25/21 13:06 90 85 L 01/25/21 12:52 01/25/21 11:50 01/25/21 11:22 Laboratory Results 01/25/21 01/25/21 01/25/21 Range/Units 21:10 16:40 11:29 WBC (4.8-10.8) K/uL RBC (4.7-6.1) M/uL Hgb (14.0-18.0) g/dL Hct (42-52) % MCV (80-100) fL MCH (25-34) pg MCHC (32-36) g/dL RDW Std Deviation (36.4-46.3) fL RDW Coeff of Carmela (11.5-14.5) % Plt Count (130-400) K/uL MPV (7.4-10.4) fL Immature Gran % (Auto) % Neut % (Auto) % Lymph % (Auto) % Jennings % (Auto) % Eos % (Auto) % Baso % (Auto) % Neut # (Auto) (1.4-6.5) K/uL Lymph # (Auto) (1.2-3.4) K/uL Jennings # (Auto) (0.11-0.59) K/uL Eos # (Auto) (0-0.5) K/uL Baso # (Auto) (0-0.2) K/uL Immature Gran # (Auto) (0.00-0.02) K/uL PT (9.0-12.0) Seconds INR (0.9-1.1) APTT (21.0-31.0) Seconds PTT Ratio Sodium (136-145) mmol/L Potassium (3.5-5.1) mmol/L Chloride (98-107) mmol/L Carbon Dioxide (21-32) mmol/L Anion Gap (3-11) BUN (7-18) mg/dl Creatinine (0.6-1.4) mg/dl Est Cr Clr Drug Dosing ml/min Est GFR ( Amer) ml/min Est GFR (Non-Af Amer) ml/min BUN/Creatinine Ratio (10-20) Glucose (70-99) mg/dl POC Glucose 216 H 221 H 124 H (70-99) mg/dl Calcium (8.5-10.1) mg/dl Triglycerides (0-150) mg/dl Cholesterol (0-200) mg/dl LDL Cholesterol, Calc mg/dl VLDL Cholesterol, Calc mg/dl HDL Cholesterol mg/dl Cholesterol/HDL Ratio 01/25/21 01/25/21 01/25/21 Range/Units 08:18 06:58 06:58 WBC (4.8-10.8) K/uL RBC (4.7-6.1) M/uL Hgb (14.0-18.0) g/dL Hct (42-52) % MCV (80-100) fL MCH (25-34) pg MCHC (32-36) g/dL RDW Std Deviation (36.4-46.3) fL RDW Coeff of Carmela (11.5-14.5) % Plt Count (130-400) K/uL MPV (7.4-10.4) fL Immature Gran % (Auto) % Neut % (Auto) % Lymph % (Auto) % Jennings % (Auto) % Eos % (Auto) % Baso % (Auto) % Neut # (Auto) (1.4-6.5) K/uL Lymph # (Auto) (1.2-3.4) K/uL Jennings # (Auto) (0.11-0.59) K/uL Eos # (Auto) (0-0.5) K/uL Baso # (Auto) (0-0.2) K/uL Immature Gran # (Auto) (0.00-0.02) K/uL PT 10.2 (9.0-12.0) Seconds INR 1.0 (0.9-1.1) APTT 25.1 (21.0-31.0) Seconds PTT Ratio 1.0 Sodium 138 (136-145) mmol/L Potassium 4.2 (3.5-5.1) mmol/L Chloride 105 (98-107) mmol/L Carbon Dioxide 27 (21-32) mmol/L Anion Gap 6.0 (3-11) BUN 31 H (7-18) mg/dl Creatinine 0.64 (0.6-1.4) mg/dl Est Cr Clr Drug Dosing 145.8 ml/min Est GFR ( Amer) 119.1 ml/min Est GFR (Non-Af Amer) 102.7 ml/min BUN/Creatinine Ratio 48.0 H (10-20) Glucose 84 (70-99) mg/dl POC Glucose 76 (70-99) mg/dl Calcium 9.0 (8.5-10.1) mg/dl Triglycerides 105 (0-150) mg/dl Cholesterol 87 (0-200) mg/dl LDL Cholesterol, Calc 32 mg/dl VLDL Cholesterol, Calc 21 mg/dl HDL Cholesterol 34 mg/dl Cholesterol/HDL Ratio 3 01/25/21 01/25/21 01/24/21 Range/Units 06:58 04:38 22:55 WBC 11.77 H (4.8-10.8) K/uL RBC 5.28 (4.7-6.1) M/uL Hgb 15.3 (14.0-18.0) g/dL Hct 45.3 (42-52) % MCV 85.8 (80-100) fL MCH 29.0 (25-34) pg MCHC 33.8 (32-36) g/dL RDW Std Deviation 42.3 (36.4-46.3) fL RDW Coeff of Carmela 13.5 (11.5-14.5) % Plt Count 392 (130-400) K/uL MPV 9.5 (7.4-10.4) fL Immature Gran % (Auto) 3.8 % Neut % (Auto) 68.0 % Lymph % (Auto) 18.9 % Jennings % (Auto) 8.7 % Eos % (Auto) 0.3 % Baso % (Auto) 0.3 % Neut # (Auto) 8.00 H (1.4-6.5) K/uL Lymph # (Auto) 2.22 (1.2-3.4) K/uL Jennings # (Auto) 1.02 H (0.11-0.59) K/uL Eos # (Auto) 0.04 (0-0.5) K/uL Baso # (Auto) 0.04 (0-0.2) K/uL Immature Gran # (Auto) 0.45 H (0.00-0.02) K/uL PT (9.0-12.0) Seconds INR (0.9-1.1) APTT (21.0-31.0) Seconds PTT Ratio Sodium (136-145) mmol/L Potassium (3.5-5.1) mmol/L Chloride (98-107) mmol/L Carbon Dioxide (21-32) mmol/L Anion Gap (3-11) BUN (7-18) mg/dl Creatinine (0.6-1.4) mg/dl Est Cr Clr Drug Dosing ml/min Est GFR ( Amer) ml/min Est GFR (Non-Af Amer) ml/min BUN/Creatinine Ratio (10-20) Glucose (70-99) mg/dl POC Glucose 94 154 H (70-99) mg/dl Calcium (8.5-10.1) mg/dl Triglycerides (0-150) mg/dl Cholesterol (0-200) mg/dl LDL Cholesterol, Calc mg/dl VLDL Cholesterol, Calc mg/dl HDL Cholesterol mg/dl Cholesterol/HDL Ratio 01/24/ Range/Units 22:32 WBC (4.8-10.8) K/uL RBC (4.7-6.1) M/uL Hgb (14.0-18.0) g/dL Hct (42-52) % MCV (80-100) fL MCH (25-34) pg MCHC (32-36) g/dL RDW Std Deviation (36.4-46.3) fL RDW Coeff of Carmela (11.5-14.5) % Plt Count (130-400) K/uL MPV (7.4-10.4) fL Immature Gran % (Auto) % Neut % (Auto) % Lymph % (Auto) % Jennings % (Auto) % Eos % (Auto) % Baso % (Auto) % Neut # (Auto) (1.4-6.5) K/uL Lymph # (Auto) (1.2-3.4) K/uL Jennings # (Auto) (0.11-0.59) K/uL Eos # (Auto) (0-0.5) K/uL Baso # (Auto) (0-0.2) K/uL Immature Gran # (Auto) (0.00-0.02) K/uL PT (9.0-12.0) Seconds INR (0.9-1.1) APTT (21.0-31.0) Seconds PTT Ratio Sodium (136-145) mmol/L Potassium (3.5-5.1) mmol/L Chloride (98-107) mmol/L Carbon Dioxide (21-32) mmol/L Anion Gap (3-11) BUN (7-18) mg/dl Creatinine (0.6-1.4) mg/dl Est Cr Clr Drug Dosing ml/min Est GFR ( Amer) ml/min Est GFR (Non-Af Amer) ml/min BUN/Creatinine Ratio (10-20) Glucose (70-99) mg/dl POC Glucose 50 L* (70-99) mg/dl Calcium (8.5-10.1) mg/dl Triglycerides (0-150) mg/dl Cholesterol (0-200) mg/dl LDL Cholesterol, Calc mg/dl VLDL Cholesterol, Calc mg/dl HDL Cholesterol mg/dl Cholesterol/HDL Ratio Diagnostic Findings Head CT 01/25/21 12:00 CT OF THE HEAD WITHOUT CONTRAST CLINICAL HISTORY: f/u intracranial hemorrhage COMPARISON STUDY: Head CT and CTA of the head January 24, 2021. CT DOSE: 729.78 mGycm TECHNIQUE: Helical axial images of the head were obtained without IV contrast. Automated exposure control was utilized for the study. A dose lowering technique was utilized adhering to the principles of ALARA. FINDINGS: No acute intracranial hemorrhage is present. Ventricular system is normal. Basal cisterns are patent. No extra axial collections are present. There are no CT findings to suggest acute dural sinus thrombosis or acute territorial infarct. The linear hyperdensity within the left frontal lobe on head CT of January 24, 2021 is no longer identified. There is a residual punctate hyperdensity on axial image 17. A calcification within the left sylvian fissure is unchanged. Visualized portions of the sinuses and mastoid air cells are clear. There are no significant calvarial abnormalities. IMPRESSION: 1. No acute intracranial hemorrhage. 2. Linear hyperdensity within the left frontal lobe on prior head CT no longer visualized. A punctate residual hyperdensity on this exam could reflect trace residual thrombus or less likely contrast. ACT 112: Negative or not required by law. Electronically signed by: Lawrence Faulkner M.D. 01/25/2021 1:04 PM PG Care Time/CCT Total # of Minutes Spent Total Time Spent with Patient: Total time spent is greater than 50% in coordination of care (as documented) at patient's floor/unit and/or counseling patient: Coding Level of Care Code 07387 Subseq Hosp Care Lvl 3 Diagnoses Pneumonia due to COVID-19 virus U07.1; J12.82 CVA (cerebral vascular accident) I63.9 Hypoxia R09.02 Diabetes mellitus E11.9 Hypertension I10 Morbid obesity with BMI of 40.0-44.9, adult E66.01; Z68.41 Hypokalemia E87.6 Diarrhea R19.7
[2021-01-25] MEDS: ENOXAPARIN INJ 40 MG/0.4 ML SYR SQ SCH (23:45)
[2021-01-26] MEDS: ALBUT/IPRATROP 3MG/0.5MG NEB 3 ML VIAL NEB SCH ×4 (01:27→19:58)
[2021-01-26 08:01] LABS: Basophils # (auto) 0.02 K/uL (0-0.2); Basophils % (auto) 0.2 %; Eosinophils # (auto) 0.14 K/uL (0-0.5); Eosinophils % (auto) 1.1 %; Hemoglobin 14.9 g/dL (14.0-18.0); Immature Granulocytes # (auto) 0.29 K/uL (0.00-0.02); Immature Granulocytes % (auto) 2.3 %; Lymphocytes # (auto) 2.47 K/uL (1.2-3.4); Lymphocytes % (auto) 19.8 %; Mean Corpuscular Hemoglobin 28.9 pg (25-34); Mean Corpuscular Hgb Conc 32.4 g/dL (32-36); Mean Corpuscular Volume 89.3 fL (80-100); Mean Platelet Volume 9.8 fL (7.4-10.4); Neutrophils # (auto) 8.57 K/uL (1.4-6.5); Neutrophils % (auto) 68.6 %; Platelet Count 407 K/uL (130-400); RDW Coefficient of Variation 13.4 % (11.5-14.5); RDW Standard Deviation 43.9 fL (36.4-46.3); Red Blood Count 5.15 M/uL (4.7-6.1); White Blood Count 12.49 K/uL (4.8-10.8)
[2021-01-26 08:30] LABS: BUN Creatinine Ratio 39.7 (10-20); Calcium 8.6 mg/dl (8.5-10.1); Creatinine Clr Calc Pharmacy 122.1 ml/min; Est GFR (African American) 110.4 ml/min; Est GFR (Non-African American) 95.2 ml/min; Magnesium 2.3 mg/dl (1.8-2.4); Potassium 4.2 mmol/L (3.5-5.1)
[2021-01-26] MEDS: FLUTICASONE PROPIONATE NA SPR 16 GM BTL SCH ×2 (09:03→20:28)
[2021-01-26] MEDS: CLOPIDOGREL BISULFATE 75 MG TAB PO SCH (09:04)
[2021-01-26] MEDS: ATORVASTATIN 40 MG TAB PO SCH (09:04)
[2021-01-26] MEDS: guaiFENesin 600 MG TABCR PO SCH ×2 (09:04→20:38)
[2021-01-26] MEDS: INSULIN ASPART 100 UNITS/ML 3 ML PEN SC SCH ×4 (09:05→20:27)
--- NOTE | 2021-01-26 16:10 | Hospitalist Progress Note ---
Date of Service January 26, 2021 Assessment & Plan (1) Pneumonia due to COVID-19 virus: Plan: Chest x-ray with bilateral airspace opacities and interstitial thickening suggestive of viral pneumonia With acute respiratory failure with hypoxia Remains on high flow nasal cannula -currently on 40 L and 90-100 % FiO2 with no improvements in many days Completed a 10-day course of dexamethasone 6 mg IV daily Remdesivir IV daily, completed 5 days on 01/19 Azithromycin 500 mg IV daily, completed 7 days on 01/21 There was no role for tocilizumab Continue guaifenesin extended release 1200 mg p.o. twice daily Continue scheduled duo nebs Continue to get out of bed and sitting up in chair, side sleeping, however he finally was able to tolerate prone position on the night of 01/25-encouraged him to do so again each night -Continue flutter valve,incentive spirometer (great compliance, can pull in 2000-2500mL) He cannot tolerate BiPAP although he has tolerated for short periods to go down for CT scans -Hold on further diuresis with Lasix 20 mg IV twice daily due to allowing permissive hypertension in the setting of acute stroke -Continue to wean off supplemental O2 as tolerated (2) CVA (cerebral vascular accident): Plan: On the evening of 01/24, developed acute onset of right upper extremity weakness and right sided facial droop-stroke alert was called CT head with 6 mm left shelton radiata hyperdensity which could represent hemorrhage versus calcification, no old imaging to compare to Telestroke neurologist recommended holding Lovenox, no antiplatelets, repeat CT head the following day to reassess for hemorrhage Discussed with neurosurgeon who reported that Lovenox could be continued for DVT prophylaxis, but continued to hold off for now as per neurologist recommendation CT angiogram head and neck with left 65% LICA stenosis at the proximal cervical segment and right less than 50% stenosis of proximal right ICA. 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 that corresponds with the hyperdense focus seen on the CT head noncontrast-acute hemorrhagic focus considered unlikely Repeat CT head noncontrast on 01/25 is negative for hemorrhage -He cannot tolerate lying flat on his back on BiPAP for the amount of time it will take to get an MRI-hold off on MRI for now On 01/25, blood pressures are relatively low in the 1 teens over 50s to 60s and his right upper extremity weakness and right facial droop have returned but not quite as significant as the initial event On 01/26, strength in right upper extremity is increased to 4/5, mild right facial droop and tongue protrusion still remain, but overall improved He clearly had an acute ischemic CVA -Started Plavix 75 mg p.o. once daily as per my discussion with neurology -Plan to get MRI of the brain later in the admission when his respiratory status is improved -lipid panel good but starting atorvastatin 40 mg daily anyway given acute stroke -Echocardiogram with mild RV dilation, but negative bubble study and normal otherwise -Continue neuro checks, PT/OT/speech therapy -Appreciate speech therapy consultation-cleared for diet -Permissive hypertension-continue holding lisinopril and amlodipine, and hold IV Lasix-if drop less than 100 systolic, would certainly give a bolus of fluids -Consulted neurology by phone given that the patient is in the Covid unit- neurology recommends Plavix, statin, brain MRI when able to from a respiratory standpoint (3) Hypoxia: Plan: As above, secondary to Covid-19 pneumonia -Hold off on further the Lasix for now as above for permissive hypertension (4) Diabetes mellitus: Plan: With significant hyperglycemia which then improved with increased doses of insulin, but then became hypoglycemic later in the evening on 01/24 Hypoglycemic again on the morning of 01/25 despite holding all insulin the evening before Loosened NovoLog coverage and decreased Lantus to 10 units at bedtime Now with hyperglycemia again on 01/26 Add Lantus 5 units back on in the morning and tighten NovoLog back down again Hemoglobin A1c significantly uncontrolled at 9.3% He will need close follow-up with his PCP after discharge Holding home metformin and Jardiance (5) Hypertension: Plan: Blood pressures acceptable-permissive hypertension in the setting of TIA/CVA Hold Norvasc and lisinopril (6) Morbid obesity with BMI of 40.0-44.9, adult: Plan: BMI 40.4 Needs weight loss (7) Hypokalemia: Plan: Improved with replacement (8) Diarrhea: Plan: With multiple episodes daily-likely secondary to Covid-19 and also was on azithromycin Azithromycin now completed C. difficile checked and was negative Diarrhea is now resolved Plan: Lovenox SQ was on hold due to possible intracranial hemorrhage, but restarted at 40 mg once daily on 01/25 Disposition-continued stay on telemetry Admission and Anticipated Discharge Date Admission Date: January 15, 2021 Subjective Patient remains frustrated that his oxygenation is not improving. He is on high flow nasal cannula at 45 L and 100% FiO2 He does say he is willing to try anything and he did lie prone all night last night even though he said it was very difficult, makes him nauseated, and he did not sleep much. He is doing flutter valve and incentive spirometry very frequently. He is out of bed to the chair. He does feel that his right upper extremity strength is much improved today but not back to baseline. He is doing some exercises with range of motion of his arm and hand on his own. Denies headache. No chest pains or shortness of breath He is moving his bowels, no further diarrhea. Telemetry with normal sinus rhythm with rates in the 90s to 100s, PVCs Review of Systems Review of Systems: All systems reviewed & are unremarkable except as noted in HPI & below Physical Exam Constitutional: WD/WN, vitals as above + morbidly obese Eyes: + anicteric sclerae ENMT: external ear and nose normal, oropharynx normal Neck: trachea midline, no thyromegaly Respiratory: normal respiratory effort Auscultation: + diminished lung sounds (Throughout due to body habitus) and + crackles (Lower lung chang bilaterally) Cardiovascular: Rate/Rhythm: regular rate and regular rhythm Heart Sounds: no murmur Extremities: + edema (1+ edema of the legs bilaterally) Chest (Breasts): Chest: normal inspection of chest Gastrointestinal (Abdomen): normal bowel sounds, soft, nontender, no hepatosplenomegaly Musculoskeletal: Extremities: extremities normal to inspection; no cyanosis and no clubbing Skin: no rashes, warm and dry Neurologic: + focal motor deficit (Right upper extremity 4/5 strength throughout, otherwise 5/5 throughout) and awake; + CN's not intact (Intact except right facial droop and left tongue deviation) Speech / Cognition: normal speech, no expressive aphasia and normal cognition Motor/Sensory: + pronator drift (In right upper extremity-very mild, improved); no sensory de ficit (Intact to light touch throughout upper and lower extremities bilaterally) Psychiatric: A+Ox3, euthymic affect Results & Data Results & Data ([place]) Vital Signs (Past 12 Hours) Vital Signs Temp Pulse Pulse Resp BP Pulse Ox 01/26/21 15:56 90 18 96 01/26/21 12:53 100 H 20 93 01/26/21 12:51 100 H 20 93 01/26/21 12:19 36.6 C 115 H 22 115/75 93 01/26/21 11:43 108 H 24 94 01/26/21 08:03 100 H 20 92 01/26/21 07:35 37.0 C 81 22 122/62 93 01/26/21 05:44 95 Laboratory Results 01/26/21 01/26/21 01/26/21 Range/Units 12:02 07:50 06:51 WBC (4.8-10.8) K/uL RBC (4.7-6.1) M/uL Hgb (14.0-18.0) g/dL Hct (42-52) % MCV (80-100) fL MCH (25-34) pg MCHC (32-36) g/dL RDW Std Deviation (36.4-46.3) fL RDW Coeff of Carmela (11.5-14.5) % Plt Count (130-400) K/uL MPV (7.4-10.4) fL Immature Gran % (Auto) % Neut % (Auto) % Lymph % (Auto) % [place] % (Auto) % Eos % (Auto) % Baso % (Auto) % Neut # (Auto) (1.4-6.5) K/uL Lymph # (Auto) (1.2-3.4) K/uL [place] # (Auto) (0.11-0.59) K/uL Eos # (Auto) (0-0.5) K/uL Baso # (Auto) (0-0.2) K/uL Immature Gran # (Auto) (0.00-0.02) K/uL Sodium 137 (136-145) mmol/L Potassium 4.2 (3.5-5.1) mmol/L Chloride 104 (98-107) mmol/L Carbon Dioxide 29 (21-32) mmol/L Anion Gap 4.0 (3-11) BUN 31 H (7-18) mg/dl Creatinine 0.77 (0.6-1.4) mg/dl Est Cr Clr Drug Dosing 122.1 ml/min Est GFR ( Amer) 110.4 ml/min Est GFR (Non-Af Amer) 95.2 ml/min BUN/Creatinine Ratio 39.7 H (10-20) Glucose 130 H (70-99) mg/dl POC Glucose 212 H 117 H (70-99) mg/dl Calcium 8.6 (8.5-10.1) mg/dl Magnesium 2.3 (1.8-2.4) mg/dl 01/26/21 01/25/21 01/25/21 Range/Units 06:51 21:10 16:40 WBC 12.49 H (4.8-10.8) K/uL RBC 5.15 (4.7-6.1) M/uL Hgb 14.9 (14.0-18.0) g/dL Hct 46.0 (42-52) % MCV 89.3 (80-100) fL MCH 28.9 (25-34) pg MCHC 32.4 (32-36) g/dL RDW Std Deviation 43.9 (36.4-46.3) fL RDW Coeff of Carmela 13.4 (11.5-14.5) % Plt Count 407 H (130-400) K/uL MPV 9.8 (7.4-10.4) fL Immature Gran % (Auto) 2.3 % Neut % (Auto) 68.6 % Lymph % (Auto) 19.8 % [place] % (Auto) 8.0 % Eos % (Auto) 1.1 % Baso % (Auto) 0.2 % Neut # (Auto) 8.57 H (1.4-6.5) K/uL Lymph # (Auto) 2.47 (1.2-3.4) K/uL [place] # (Auto) 1.00 H (0.11-0.59) K/uL Eos # (Auto) 0.14 (0-0.5) K/uL Baso # (Auto) 0.02 (0-0.2) K/uL Immature Gran # (Auto) 0.29 H (0.00-0.02) K/uL Sodium (136-145) mmol/L Potassium (3.5-5.1) mmol/L Chloride (98-107) mmol/L Carbon Dioxide (21-32) mmol/L Anion Gap (3-11) BUN (7-18) mg/dl Creatinine (0.6-1.4) mg/dl Est Cr Clr Drug Dosing ml/min Est GFR ( Amer) ml/min Est GFR (Non-Af Amer) ml/min BUN/Creatinine Ratio (10-20) Glucose (70-99) mg/dl POC Glucose 216 H 221 H (70-99) mg/dl Calcium (8.5-10.1) mg/dl Magnesium (1.8-2.4) mg/dl PG Care Time/CCT Total # of Minutes Spent Total Time Spent with Patient: Total time spent is greater than 50% in coordination of care (as documented) at patient's floor/unit and/or counseling patient: Coding Level of Care Code 80932 Subseq Hosp Care Lvl 3 Diagnoses Pneumonia due to COVID-19 virus U07.1; J12.82 CVA (cerebral vascular accident) I63.9 Hypoxia R09.02 Diabetes mellitus E11.9 Hypertension I10 Morbid obesity with BMI of 40.0-44.9, adult E66.01; Z68.41 Hypokalemia E87.6 Diarrhea R19.7
[2021-01-26] MEDS: INSULIN GLARGINE SOLOSTAR 100 UNITS/ML 3 ML PEN SC SCH (20:27)
[2021-01-26] MEDS: ENOXAPARIN INJ 40 MG/0.4 ML SYR SQ SCH (20:37)
[2021-01-27] MEDS: ALBUT/IPRATROP 3MG/0.5MG NEB 3 ML VIAL NEB SCH ×3 (02:06→19:58)
[2021-01-27] MEDS: INSULIN ASPART 100 UNITS/ML 3 ML PEN SC SCH ×4 (08:53→21:04)
[2021-01-27] MEDS: CLOPIDOGREL BISULFATE 75 MG TAB PO SCH (08:53)
[2021-01-27] MEDS: ATORVASTATIN 40 MG TAB PO SCH (08:53)
[2021-01-27] MEDS: guaiFENesin 600 MG TABCR PO SCH ×2 (08:53→20:44)
[2021-01-27] MEDS: FLUTICASONE PROPIONATE NA SPR 16 GM BTL SCH ×2 (08:54→20:43)
[2021-01-27] MEDS ORDERED: INSULIN GLARGINE SOLOSTAR 100 UNITS/ML 3 ML PEN SC SCH (09:00)
--- NOTE | 2021-01-27 09:49 | XRay Report ---
SINGLE VIEW CHEST CLINICAL HISTORY: Hypoxia. Covid pneumonia. FINDINGS: An AP, portable, upright chest radiograph is compared to study dated 01/19/2021. The heart i s top normal for projection noting atherosclerotic calcification of the thoracic aorta. Emphysema is noted. There is increasing multifocal airspace consolidation throughout both lungs. No large pleural effusion or pneumothorax is seen. The skeletal structures appear osteopenic. The bony thorax is gross ly intact. IMPRESSION: There is increasing multifocal airspace consolidation throughout both lungs consistent wi th the reported history of a viral pneumonia. Radiographic follow-up to resolution is recommended. ACT 112: Negative or not required by law. Electronically signed by: Terry Wallace M.D. 01/27/2021 9:47 AM
--- NOTE | 2021-01-27 18:19 | Hospitalist Progress Note ---
Date of Service January 27, 2021 Assessment & Plan (1) Pneumonia due to COVID-19 virus: Plan: Chest x-ray with bilateral airspace opacities and interstitial thickening suggestive of viral pneumonia With acute respiratory failure with hypoxia Remains on high flow nasal cannula -remained on 40 L and 90-100 % FiO2 with no improvements for many days, but finally improving on 01/27-weaned down to 30 L and 70% FiO2 Completed a 10-day course of dexamethasone 6 mg IV daily Remdesivir IV daily, completed 5 days on 01/19 Azithromycin 500 mg IV daily, completed 7 days on 01/21 There was no role for tocilizumab Continue guaifenesin extended release 1200 mg p.o. twice daily Continue scheduled duo nebs Continue to get out of bed and sitting up in chair, side sleeping, however he finally was able to tolerate prone position on the night of 01/25 and again on 01/26-encouraged him to do so again each night -Continue flutter valve,incentive spirometer (great compliance, can pull in 2000-2500mL) He cannot tolerate BiPAP although he has tolerated for short periods to go down for CT scans -Okay to restart diuresis with Lasix 20 mg IV once daily which was on hold for 2 days to allow permissive hypertension in the setting of acute stroke -Continue to wean off supplemental O2 as tolerated (2) CVA (cerebral vascular accident): Plan: On the evening of 01/24, developed acute onset of right upper extremity weakness and right sided facial droop-stroke alert was called CT head with 6 mm left shelton radiata hyperdensity which could represent hemorrhage versus calcification, no old imaging to compare to Telestroke neurologist recommended holding Lovenox, no antiplatelets, repeat CT head the following day to reassess for hemorrhage Discussed with neurosurgeon-no role for intervention CT angiogram head and neck with left 65% LICA stenosis at the proximal cervical segment and right less than 50% stenosis of proximal right ICA. 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 that corresponds with the hyperdense focus seen on the CT head noncontrast-acute hemorrhagic focus considered unlikely Repeat CT head noncontrast on 01/25 is negative for hemorrhage -He cannot tolerate lying flat on his back on BiPAP for the amount of time it will take to get an MRI-hold off on MRI for now On 01/25, blood pressures are relatively low in the 1 teens over 50s to 60s and his right upper extremity weakness and right facial droop have returned but not quite as significant as the initial event On 01/26, strength in right upper extremity is increased to 4/5, mild right facial droop and tongue protrusion still remain, but overall improved On 01/27, strength continues to improve and right upper extremity 4+/5, again con tinues with mild right facial droop and tongue protrusion to the left He clearly had an acute ischemic CVA -Started Plavix 75 mg p.o. once daily as per my discussion with neurology -Plan to get MRI of the brain later in the admission when his respiratory status is improved -lipid panel good but starting atorvastatin 40 mg daily anyway given acute stroke -Echocardiogram with mild RV dilation, but negative bubble study and normal otherwise -Continue neuro checks, PT/OT/speech therapy -Appreciate speech therapy consultation-cleared for diet -Permissive hypertension-continue holding lisinopril and amlodipine, but okay to restart IV Lasix as blood pressures are improving -Consulted neurology by phone given that the patient is in the Covid unit- neurology recommends Plavix, statin, brain MRI when able to from a respiratory standpoint (3) Hypoxia: Plan: As above, secondary to Covid-19 pneumonia (4) Diabetes mellitus: Plan: With significant hyperglycemia which then improved with increased doses of insulin, but then became hypoglycemic later in the evening on 01/24 Hypoglycemic again on the morning of 01/25 despite holding all insulin the evening before Now with hyperglycemia again developing in the 200s Continue to titrate back up on Lantus-increase to 8 units in the morning and continue 10 units at bedtime Continue NovoLog and tighten down again Hemoglobin A1c significantly uncontrolled at 9.3% He will need close follow-up with his PCP after discharge Holding home metformin and Jardiance (5) Hypertension: Plan: Blood pressures acceptable-permissive hypertension in the setting of TIA/CVA Continue to hold Norvasc and lisinopril (6) Morbid obesity with BMI of 40.0-44.9, adult: Plan: BMI 40.4 Needs weight loss (7) Hypokalemia: Plan: Improved with replacement Follow BMP in the morning (8) Diarrhea: Plan: With multiple episodes daily-likely secondary to Covid-19 and also was on azithromycin Azithromycin now completed C. difficile checked and was negative Diarrhea is now resolved Plan: Lovenox SQ was on hold due to possible intracranial hemorrhage, but restarted at 40 mg once daily on 01/25 Disposition-continued stay on telemetry, slow recovery with severe hypoxia as well as acute CVA. Expect likely at least 4-5 more days of hospitalization PT evaluation-recommends acute rehab versus home if improves by the time of discharge OT recommends acute rehab Admission and Anticipated Discharge Date Admission Date: January 15, 2021 Subjective Patient in a bad mood today. He is frustrated that he has been in the hospital for so long and feels he can only handle being told how he is doing from day-to-day. He does not want us to tell/remind him that he could be here for a long time. He feels the strength in his right arm is improved today. He did also report that he pulled a very large hard and crusty chunk of mucus out of his left nostril and ever since then has been able to wean down on his FiO2 and high flow liters-now down to 30 L and 70% FiO2 which is a huge improvement. He is eating and drinking, moving his bowels. He is out of bed to chair and again was able to lie prone all through the night last night and feels he got a really good nights rest. Telemetry with normal sinus rhythm, rates in the 80s to 100s. Review of Systems Review of Systems: All systems reviewed & are unremarkable except as noted in HPI & below Physical Exam Constitutional: WD/WN, vitals as above + morbidly obese Eyes: + anicteric sclerae ENMT: external ear and nose normal, oropharynx normal Neck: trachea midline, no thyromegaly Respiratory: normal respiratory effort Auscultation: + diminished lung sounds (Throughout due to body habitus) and + crackles (Lower lung chang bilaterally) Cardiovascular: Rate/Rhythm: regular rate and regular rhythm Heart Sounds: no murmur Extremities: + edema (1+ edema of the legs bilaterally) Chest (Breasts): Chest: normal inspection of chest Gastrointestinal (Abdomen): normal bowel sounds, soft, nontender, no hepatosplenomegaly Musculoskeletal: Extremities: extremities normal to inspection; no cyanosis and no clubbing Skin: no rashes, warm and dry Neurologic: + focal motor deficit (Right upper extremity 4+/5 strength throughout, otherwise 5/5 throughout) and awake; + CN's not intact (Intact except right facial droop and left tongue deviation) Speech / Cognition: normal speech, no expressive aphasia and normal cognition Motor/Sensory: + pronator drift (In right upper extremity-very mild, improved) Psychiatric: Orientation: alert and oriented x 3 Affect: + irritable affect Results & Data Results & Data ([facility]) Vital Signs (Past 12 Hours) Vital Signs Temp Pulse Pulse Pulse Resp BP Pulse Ox 01/27/21 16:00 88 01/27/21 15:24 36.7 C 106 H 22 148/76 H 91 01/27/21 15:17 102 H 20 93 01/27/21 12:40 36.5 C 103 H 14 133/76 88 L 01/27/21 11:09 104 H 20 94 01/27/21 08:00 88 01/27/21 07:38 86 20 94 01/27/21 07:35 86 20 94 01/27/21 07:19 36.6 C 90 90 20 135/78 92 Laboratory Results 01/27/21 01/27/21 01/27/21 Range/Units 16:42 11:20 07:20 POC Glucose 141 H 236 H 119 H (70-99) mg/dl 01/26/21 Range/Units 20:13 POC Glucose 224 H (70-99) mg/dl Diagnostic Findings Chest x-ray image personally reviewed by me and agree with the following report: Chest X-Ray 01/27/21 08:37 SINGLE VIEW CHEST CLINICAL HISTORY: Hypoxia. Covid pneumonia. FINDINGS: An AP, portable, upright chest radiograph is compared to study dated 01/19/2021. The heart is top normal for projection noting atherosclerotic calcification of the thoracic aorta. Emphysema is noted. There is increasing multifocal airspace consolidation throughout both lungs. No large pleural effusion or pneumothorax is seen. The skeletal structures appear osteopenic. The bony thorax is grossly intact. IMPRESSION: There is increasing multifocal airspace consolidation throughout both lungs consistent with the reported history of a viral pneumonia. Radiographic follow-up to resolution is recommended. ACT 112: Negative or not required by law. Electronically signed by: Terry Wallace M.D. 01/27/2021 9:47 AM PG Care Time/CCT Total # of Minutes Spent Total Time Spent with Patient: Total time spent is greater than 50% in coordination of care (as documented) at patient's floor/unit and/or counseling patient: Coding Level of Care Code 20061 Subseq Hosp Care Lvl 3 Diagnoses Pneumonia due to COVID-19 virus U07.1; J12.82 CVA (cerebral vascular accident) I63.9 Hypoxia R09.02 Diabetes mellitus E11.9 Hypertension I10 Morbid obesity with BMI of 40.0-44.9, adult E66.01; Z68.41 Hypokalemia E87.6 Diarrhea R19.7
[2021-01-27] MEDS: ENOXAPARIN INJ 40 MG/0.4 ML SYR SQ SCH (20:43)
[2021-01-27] MEDS: INSULIN GLARGINE SOLOSTAR 100 UNITS/ML 3 ML PEN SC SCH (21:04)
[2021-01-28] MEDS: ALBUT/IPRATROP 3MG/0.5MG NEB 3 ML VIAL NEB SCH (07:22)
[2021-01-28 07:45] LABS: Basophils # (auto) 0.02 K/uL (0-0.2); Basophils % (auto) 0.2 %; Eosinophils # (auto) 0.09 K/uL (0-0.5); Eosinophils % (auto) 0.8 %; Hematocrit (blood only) 43.9 % (42-52); Hemoglobin 14.2 g/dL (14.0-18.0); Immature Granulocytes # (auto) 0.18 K/uL (0.00-0.02); Immature Granulocytes % (auto) 1.6 %; Lymphocytes # (auto) 2.32 K/uL (1.2-3.4); Lymphocytes % (auto) 20.2 %; Mean Corpuscular Hemoglobin 28.8 pg (25-34); Mean Corpuscular Hgb Conc 32.3 g/dL (32-36); Mean Platelet Volume 9.3 fL (7.4-10.4); Monocytes # (auto) 1.01 K/uL (0.11-0.59); Monocytes % (auto) 8.8 %; Neutrophils # (auto) 7.84 K/uL (1.4-6.5); Neutrophils % (auto) 68.4 %; Platelet Count 358 K/uL (130-400); RDW Coefficient of Variation 13.2 % (11.5-14.5); Red Blood Count 4.93 M/uL (4.7-6.1); White Blood Count 11.46 K/uL (4.8-10.8)
[2021-01-28] MEDS: FLUTICASONE PROPIONATE NA SPR 16 GM BTL SCH ×2 (08:04→20:37)
[2021-01-28] MEDS: FUROSEMIDE 40 MG/4 ML VIAL IV SCH (08:06)
[2021-01-28] MEDS: CLOPIDOGREL BISULFATE 75 MG TAB PO SCH (08:07)
[2021-01-28] MEDS: ATORVASTATIN 40 MG TAB PO SCH (08:07)
[2021-01-28] MEDS: guaiFENesin 600 MG TABCR PO SCH ×2 (08:07→20:37)
[2021-01-28 08:12] LABS: BUN Creatinine Ratio 31.2 (10-20); C Reactive Protein 1.33 mg/dl (0-0.29); Calcium 8.7 mg/dl (8.5-10.1); Creatinine Clr Calc Pharmacy 142.5 ml/min; Est GFR (African American) 117.6 ml/min; Est GFR (Non-African American) 101.5 ml/min; Magnesium 1.9 mg/dl (1.8-2.4); Phosphorus 3.4 mg/dl (2.5-4.9); Potassium 4.3 mmol/L (3.5-5.1)
[2021-01-28] MEDS ORDERED: FUROSEMIDE 20 MG in SYRINGE 0 ML IV SCH (09:00)
[2021-01-28] MEDS: INSULIN ASPART 100 UNITS/ML 3 ML PEN SC SCH ×4 (09:15→20:39)
[2021-01-28] MEDS: INSULIN GLARGINE SOLOSTAR 100 UNITS/ML 3 ML PEN SC SCH ×2 (09:16→20:38)
--- NOTE | 2021-01-28 10:25 | Hospitalist Progress Note ---
Date of Service January 28, 2021 Assessment & Plan (1) Pneumonia due to COVID-19 virus: Plan: Chest x-ray with bilateral airspace opacities and interstitial thickening suggestive of viral pneumonia With acute respiratory failure with hypoxia Remains on high flow nasal cannula -remained on 40 L and 90-100 % FiO2 with no improvements for many days down to 30L and 75% today, no distress, trying to lay on his side and prone Completed a 10-day course of dexamethasone 6 mg IV daily Remdesivir IV daily, completed 5 days on 01/19 Azithromycin 500 mg IV daily, completed 7 days on 01/21 There was no role for tocilizumab Continue guaifenesin extended release 1200 mg p.o. twice daily Continue scheduled duo nebs Continue to get out of bed and sitting up in chair -Continue flutter valve,incentive spirometer (great compliance, can pull in 2000-2500mL) He cannot tolerate BiPAP although he has tolerated for short periods to go down for CT scans continue Lasix 20mg IV daily for negative fluid balance (2) CVA (cerebral vascular accident): Plan: On the evening of 01/24, developed acute onset of right upper extremity weakness and right sided facial droop-stroke alert was called CT head with 6 mm left shelton radiata hyperdensity which could represent hemorrhage versus calcification, no old imaging to compare to Telestroke neurologist recommended holding Lovenox, no antiplatelets, repeat CT head the following day to reassess for hemorrhage Discussed with neurosurgeon-no role for intervention CT angiogram head and neck with left 65% LICA stenosis at the proximal cervical segment and right less than 50% stenosis of proximal right ICA. 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 that corresponds with the hyperdense focus seen on the CT head noncontrast-acute hemorrhagic focus considered unlikely Repeat CT head noncontrast on 01/25 is negative for hemorrhage -He cannot tolerate lying flat on his back on BiPAP for the amount of time it will take to get an MRI-hold off on MRI for now On 01/25, blood pressures are relatively low in the 1 teens over 50s to 60s and his right upper extremity weakness and right facial droop have returned but not quite as significant as the initial event On 01/26, strength in right upper extremity is increased to 4/5, mild right facial droop and tongue protrusion still remain, but overall improved On 01/27, strength continues to improve and right upper extremity 4+/5, again continues with mild right facial droop and tongue protrusion to the left He clearly had an acute ischemic CVA -Started Plavix 75 mg p.o. once daily as per my discussion with neurology -Plan to get MRI of the brain later in the admission when his respiratory status is improved -lipid panel good but starting atorvastatin 40 mg daily anyway given acute stroke -Echocardiogram with mild RV dilation, but negative bubble study and normal otherwise -Continue neuro checks, PT/OT/speech therapy -Appreciate speech therapy consultation-cleared for diet -Permissive hypertension-continue holding lisinopril and amlodipine, but okay to restart IV Lasix as blood pressures are improving -Consulted neurology by phone given that the patient is in the Covid unit- neurology recommends Plavix, statin, brain MRI when able to from a respiratory standpoint (3) Hypoxia: Plan: As above, secondary to Covid-19 pneumonia slowly improving, goal is to wean oxygen down enough to discharge by the end of the week (4) Diabetes mellitus: Plan: With significant hyperglycemia which then improved with increased doses of insulin, but then became hypoglycemic later in the evening on 01/24 Hypoglycemic again on the morning of 01/25 despite holding all insulin the evening before sugars acceptable the past 24 hours, 120-210's Continue to titrate back up on Lantus-increase to 8 units in the morning and continue 10 units at bedtime Continue NovoLog and tighten down again Hemoglobin A1c significantly uncontrolled at 9.3% He will need close follow-up with his PCP after discharge Holding home metformin and Jardiance (5) Hypertension: Plan: Blood pressures acceptable-permissive hypertension in the setting of TIA/CVA Continue to hold Norvasc and lisinopril Lasix 20mg IV daily resumed (6) Morbid obesity with BMI of 40.0-44.9, adult: Plan: BMI 40.4 Needs weight loss (7) Hypokalemia: Plan: normal today (8) Diarrhea: Plan: With multiple episodes daily-likely secondary to Covid-19 and also was on azithromycin Azithromycin now completed C. difficile checked and was negative Diarrhea is now resolved Plan: Lovenox SQ was on hold due to possible intracranial hemorrhage, but restarted at 40 mg once daily on 01/25 Disposition-continued stay on telemetry, slow recovery with severe hypoxia as well as acute CVA. Expect likely at least 4-5 more days of hospitalization PT evaluation-recommends acute rehab versus home if improves by the time of discharge. he does not want to consider rehab OT recommends acute rehab Admission and Anticipated Discharge Date Admission Date: January 15, 2021 Subjective reviewed labs, Cr is stable, CRP down to 1.33 reviewed chart from the past week patient laying on his right side, says he feels well, breathing better, laid on his stomach last night as best he could he is eating everything, no diarrhea, no nausea the strength on his right side is improving, he says he is "not going to any rehab" told him that the short term goal is to get him home by end of the week, will get an MRI once his breathing is improved further he agrees with this plan Review of Systems Review of Systems: All systems reviewed & are unremarkable except as noted in Subjective Respiratory: + cough, + dyspnea and + dyspnea on exertion Neurologic: + localized weakness (right arm and hand) Physical Exam Physical Exam: General: well developed, well nourished, obese male, ill appearing Neck: supple, trachea midline, normal thyroid Lungs: slight crackles in bases, + tachypnea, + accessory muscle use (belly breathing), no wheezing Heart: regular S1 and S2, no murmur, peripheral pulses normal, capillary refill normal, no edema Abdomen: soft, NT, ND, + BS, no hepatomegaly, normal to percussion Extremities: normal in appearance, no cyanosis, no petechiae, decreased strength right UE Neuro: awake, cooperative, moves all extremities, no focal motor deficits, CN II-XII intact, sensation in extremities intact, normal speech Skin: warm, dry, no rash, normal turgor Psych: Awake, alert oriented x 3, euthymic affect Results & Data Results & Data ([facility]) Vital Signs (Past 12 Hours) Vital Signs Temp Pulse Pulse Pulse Resp BP BP 01/28/21 07:40 36.7 C 79 22 125/75 01/28/21 07:22 93 H 18 01/28/21 04:02 36.8 C 80 24 115/67 01/28/21 03:10 89 20 01/27/21 23:33 96 H 01/27/21 23:05 85 20 01/27/21 22:55 36.7 C 91 H 18 122/62 01/27/21 22:24 97 H 16 Pulse Ox 01/28/21 07:40 91 01/28/21 07:22 91 01/28/21 04:02 92 01/28/21 03:10 94 01/27/21 23:33 01/27/21 23:05 94 01/27/21 22:55 93 01/27/21 22:24 95 Laboratory Results Laboratory Results - last 24 hr 01/27/21 01/27/21 01/27/21 11:20 16:42 20:30 WBC RBC Hgb Hct MCV MCH MCHC RDW Std Deviation RDW Coeff of Carmela Plt Count MPV Immature Gran % (Auto) Neut % (Auto) Lymph % (Auto) [place] % (Auto) Eos % (Auto) Baso % (Auto) Neut # (Auto) Lymph # (Auto) [place] # (Auto) Eos # (Auto) Baso # (Auto) Immature Gran # (Auto) Sodium Potassium Chloride Carbon Dioxide Anion Gap BUN Creatinine Est Cr Clr Drug Dosing Est GFR ( Amer) Est GFR (Non-Af Amer) BUN/Creatinine Ratio Glucose POC Glucose 236 H 141 H 215 H Calcium Phosphorus Magnesium C-Reactive Protein 01/28/21 01/28/21 01/28/21 07:29 07:29 07:38 WBC 11.46 H RBC 4.93 Hgb 14.2 Hct 43.9 MCV 89.0 MCH 28.8 MCHC 32.3 RDW Std Deviation 43.0 RDW Coeff of Carmela 13.2 Plt Count 358 MPV 9.3 Immature Gran % (Auto) 1.6 Neut % (Auto) 68.4 Lymph % (Auto) 20.2 [place] % (Auto) 8.8 Eos % (Auto) 0.8 Baso % (Auto) 0.2 Neut # (Auto) 7.84 H Lymph # (Auto) 2.32 [place] # (Auto) 1.01 H Eos # (Auto) 0.09 Baso # (Auto) 0.02 Immature Gran # (Auto) 0.18 H Sodium 136 Potassium 4.3 Chloride 104 Carbon Dioxide 26 Anion Gap 6.0 BUN 21 H Creatinine 0.66 Est Cr Clr Drug Dosing 142.5 Est GFR ( Amer) 117.6 Est GFR (Non-Af Amer) 101.5 BUN/Creatinine Ratio 31.2 H Glucose 138 H POC Glucose 124 H Calcium 8.7 Phosphorus 3.4 Magnesium 1.9 C-Reactive Protein 1.33 H Medications Administered Current Inpatient Medications Acetaminophen (Acetaminophen 325 Mg Tab) 650 mg PO Q4H PRN PRN Reason: Pain or Fever Stop: 02/14/21 08:39 Last Admin: 01/25/21 13:35 Dose: 650 mg Documented by: Albuterol (Albuterol Hfa 8 Gm Inhaler) 2 puffs INH Q2R PRN PRN Reason: Shortness Of Breath Stop: 02/14/21 08:48 Last Admin: 01/21/21 07:37 Dose: 2 puffs Documented by: Albuterol (Albut/Ipratrop 3mg/0.5mg Neb 3 Ml Vial) 3 ml NEB Q2R PRN PRN Reason: Shortness Of Breath Or Wheezing Stop: 02/23/21 08:23 Amlodipine Besylate (Amlodipine Besylate 5 Mg Tab) 5 mg PO DAILY LEIF Stop: 02/16/21 08:59 Last Admin: 01/24/21 08:43 Dose: 5 mg Documented by: Atorvastatin Calcium (Atorvastatin 40 Mg Tab) 40 mg PO QAM LEIF Stop: 02/24/21 08:59 Last Admin: 01/28/21 08:07 Dose: 40 mg Documented by: Clopidogrel Bisulfate (Clopidogrel Bisulfate 75 Mg Tab) 75 mg PO QAM LEIF Stop: 02/24/21 13:59 Last Admin: 01/28/21 08:07 Dose: 75 mg Documented by: Dextrose (Dextrose 50% 50 Ml Syringe) 25 - 50 ml IV UD PRN; Protocol PRN Reason: Hypoglycemia Protocol Stop: 02/14/21 08:39 Last Admin: 01/24/21 22:36 Dose: 50 ml Documented by: Enoxaparin Sodium (Enoxaparin Inj 40 Mg/0.4 Ml Syr) 40 mg SQ HS LEIF Stop: 02/24/21 22:44 Last Admin: 01/27/21 20:43 Dose: 40 mg Documented by: Fluticasone Propionate (Fluticasone Propionate Na Spr 16 Gm Btl) 2 sprays NA BID LEIF Stop: 02/17/21 22:14 Last Admin: 01/28/21 08:04 Dose: Not Given Documented by: Furosemide (Furosemide 40 Mg/4 Ml Vial) 20 mg IV QAM [facility] Stop: 02/27/21 08:59 Last Admin: 01/28/21 08:06 Dose: 20 mg Documented by: Glucagon (Glucagon For Inj 1 Mg Vial) 1 mg SQ UD PRN; Protocol PRN Reason: Hypoglycemia Protocol Stop: 02/14/21 08:39 Glucose (Glucose 10 Tabs/Tube) 4 - 8 tabs PO UD PRN; Protocol PRN Reason: Hypoglycemia Protocol Stop: 02/14/21 08:39 Glucose (Glucose 40% Gel 15 Gm Tube) 15 - 30 gm PO UD PRN; Protocol PRN Reason: Hypoglycemia Protocol Stop: 02/14/21 08:39 Guaifenesin (Guaifenesin 600 Mg Tabcr) 1,200 mg PO Q12 LEIF Stop: 02/14/21 08:59 Last Admin: 01/28/21 08:07 Dose: 1,200 mg Documented by: Insulin Aspart (Insulin Aspart 100 Units/Ml 3 Ml Pen) 0 units SC ACHS LEIF Stop: 02/14/21 08:39 Last Admin: 01/28/21 09:15 Dose: 8 units Documented by: Insulin Glargine (Insulin Glargine Solostar 100 Units/Ml 3 Ml Pen) 10 units SC HS [facility] Stop: 02/24/21 20:59 Last Admin: 01/27/21 21:04 Dose: 10 units Documented by: Insulin Glargine (Insulin Glargine Solostar 100 Units/Ml 3 Ml Pen) 8 units SC QAM LEIF Stop: 02/27/21 08:59 Last Admin: 01/28/21 09:16 Dose: 8 units Documented by: Lisinopril (Lisinopril 20 Mg Tab) 20 mg PO DAILY [facility] Stop: 02/21/21 08:59 Last Admin: 01/24/21 08:43 Dose: 20 mg Documented by: Loperamide HCl (Loperamide Hcl 2 Mg Cap) 2 mg PO Q4 PRN PRN Reason: Loose Stool Stop: 02/20/21 10:42 Last Admin: 01/21/21 18:08 Dose: 2 mg Documented by: Menthol (Cough Drop (Sugar Free) Checo 24 Checo/1 Box) 1 checo BUCCAL Q2H PRN PRN Reason: Sore Throat Stop: 02/17/21 20:48 Last Admin: 01/23/21 21:27 Dose: 1 checo Documented by: Miscellaneous (Carbohydrates For Hypoglycemia ) 15 - 30 gm PO UD PRN PRN Reason: Hypoglycemia Protocol Stop: 02/14/21 08:39 Miscellaneous Information (Pharmacist Discharge Med Rec Consult) 1 ea N/A UD PRN PRN Reason: Consult Stop: 02/23/21 20:49 Nitroglycerin (Nitroglycerin Sl 0.4 Mg/Tab Tab) 0.4 mg SL UD PRN PRN Reason: Chest Pain Stop: 02/14/21 08:39 Ondansetron HCl (Ondansetron Inj 2 Mg/Ml 2 Ml Vial) 4 mg IV Q6H PRN PRN Reason: Nausea Stop: 02/14/21 08:39 PG Care Time/CCT Total # of Minutes Spent Total Time Spent with Patient: Total time spent is greater than 50% in coordinat ion of care (as documented) at patient's floor/unit and/or counseling patient: Coding Level of Care Code 69616 Subseq Hosp Care Lvl 3 Diagnoses Pneumonia due to COVID-19 virus U07.1; J12.82 CVA (cerebral vascular accident) I63.9 Hypoxia R09.02 Diabetes mellitus E11.9 Hypertension I10 Morbid obesity with BMI of 40.0-44.9, adult E66.01; Z68.41 Hypokalemia E87.6 Diarrhea R19.7
[2021-01-28] MEDS: ENOXAPARIN INJ 40 MG/0.4 ML SYR SQ SCH (20:37)
[2021-01-29] MEDS: INSULIN ASPART 100 UNITS/ML 3 ML PEN SC SCH ×4 (08:40→20:53)
[2021-01-29] MEDS: guaiFENesin 600 MG TABCR PO SCH ×2 (09:10→20:46)
[2021-01-29] MEDS: FLUTICASONE PROPIONATE NA SPR 16 GM BTL SCH ×2 (09:10→20:46)
[2021-01-29] MEDS: CLOPIDOGREL BISULFATE 75 MG TAB PO SCH (09:10)
[2021-01-29] MEDS: ATORVASTATIN 40 MG TAB PO SCH (09:10)
[2021-01-29] MEDS: INSULIN GLARGINE SOLOSTAR 100 UNITS/ML 3 ML PEN SC SCH ×2 (09:32→20:53)
[2021-01-29] MEDS: FUROSEMIDE 40 MG/4 ML VIAL IV SCH (09:32)
--- NOTE | 2021-01-29 16:02 | Hospitalist Progress Note ---
Date of Service January 29, 2021 Assessment & Plan (1) Pneumonia due to COVID-19 virus: Plan: Chest x-ray with bilateral airspace opacities and interstitial thickening suggestive of viral pneumonia With acute respiratory failure with hypoxia Remains on high flow nasal cannula -remained on 40 L and 90-100 % FiO2 with no improvements for many days on 35L and 75% today, no distress, trying to lay on his side and prone Completed a 10-day course of dexamethasone 6 mg IV daily Remdesivir IV daily, completed 5 days on 01/19 Azithromycin 500 mg IV daily, completed 7 days on 01/21 There was no role for tocilizumab Continue guaifenesin extended release 1200 mg p.o. twice daily Continue PRN duo nebs Continue to get out of bed and sitting up in chair -Continue flutter valve,incentive spirometer (great compliance, can pull in 2000-2500mL) laying prone at night continue Lasix 20mg IV daily, give extra dose this afternoon for more negative output try to get him on wall high flow tomorrow (2) CVA (cerebral vascular accident): Plan: On the evening of 01/24, developed acute onset of right upper extremity weakness and right sided facial droop-stroke alert was called CT head with 6 mm left shelton radiata hyperdensity which could represent hemorrhage versus calcification, no old imaging to compare to Telestroke neurologist recommended holding Lovenox, no antiplatelets, repeat CT head the following day to reassess for hemorrhage Discussed with neurosurgeon-no role for intervention CT angiogram head and neck with left 65% LICA stenosis at the proximal cervical segment and right less than 50% stenosis of proximal right ICA. 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 once daily -Plan to get MRI of the brain later in the admission when his respiratory status is improved, perhaps when he can lay flat -lipid panel good but starting atorvastatin 40 mg daily anyway given acute stroke -Echocardiogram with mild RV dilation, but negative bubble study and normal otherwise -Continue neuro checks, PT/OT/speech therapy -Appreciate speech therapy consultation-cleared for diet -Permissive hypertension-continue holding lisinopril and amlodipine, but okay to restart IV Lasix as blood pressures are improving -Consulted neurology by phone given that the patient is in the Covid unit- neurology recommends Plavix, statin, brain MRI when able to from a respiratory standpoint (3) Hypoxia: Plan: As above, secondary to Covid-19 pneumonia slowly improving, goal is to wean oxygen down enough to discharge by the end of the week (4) Diabetes mellitus: Plan: With significant hyperglycemia which then improved with increased doses of insulin, but then became hypoglycemic later in the evening on 01/24 Hypoglycemic again on the morning of 01/25 despite holding all insulin the evening before sugars acceptable the past 24 hours, 120-210's Continue to titrate back up on Lantus-increase to 8 units in the morning and continue 10 units at bedtime Continue NovoLog and tighten down again Hemoglobin A1c significantly uncontrolled at 9.3% He will need close follow-up with his PCP after discharge Holding home metformin and Jardiance (5) Hypertension: Plan: Blood pressures acceptable-permissive hypertension in the setting of TIA/CVA Continue to hold Norvasc and lisinopril Lasix 20mg IV daily resumed (6) Morbid obesity with BMI of 40.0-44.9, adult: Plan: BMI 40.4 Needs weight loss (7) Hypokalemia: Plan: normal today (8) Diarrhea: Plan: With multiple episodes daily-likely secondary to Covid-19 and also was on azithromycin Azithromycin now completed C. difficile checked and was negative Diarrhea is now resolved Plan: Lovenox SQ was on hold due to possible intracranial hemorrhage, but restarted at 40 mg once daily on 01/25 Disposition-continued stay on telemetry, slow recovery with severe hypoxia as well as acute CVA. Expect likely at least 4-5 more days of hospitalization PT evaluation-recommends acute rehab versus home if improves by the time of roxanna dawson. he does not want to consider rehab OT recommends acute rehab Admission and Anticipated Discharge Date Admission Date: January 15, 2021 Subjective patient states that he is having a good day he was down to 35L and 55% but had to be titrated up to 75% after he desaturated with movement respiratory therapy tried him on 15L wall high flow, could not quite maintain 89%, try again tomorrow continues to eat really well, drinking well will give additional dose of Lasix this afternoon, per RN he put out 800cc this morning, try to keep him more negative sugars are stable, off of steroids at this point discussed that he needs to continue to lay prone, have patience, slowly improving Review of Systems Review of Systems: All systems reviewed & are unremarkable except as noted in Subjective Physical Exam Physical Exam: General: well developed, well nourished, obese male, ill appearing Neck: supple, trachea midline, normal thyroid Lungs: lungs clear, normal effort, no accessory muscle use, no wheezing Heart: regular S1 and S2, no murmur, peripheral pulses normal, capillary refill normal, no edema Abdomen: soft, NT, ND, + BS, no hepatomegaly, normal to percussion Extremities: normal in appearance, no cyanosis, no petechiae, decreased strength right UE Neuro: awake, cooperative, moves all extremities, no focal motor deficits, CN II-XII intact, sensation in extremities intact, normal speech Skin: warm, dry, no rash, normal turgor Psych: Awake, alert oriented x 3, euthymic affect Results & Data Results & Data ([facility]) Vital Signs (Past 12 Hours) Vital Signs Temp Pulse Pulse Resp BP Pulse Ox 01/29/21 15:31 36.8 C 97 H 20 118/73 89 L 01/29/21 10:52 36.8 C 100 H 20 102/62 90 01/29/21 08:00 108 H 01/29/21 07:45 97 H 20 94 01/29/21 07:31 36.8 C 95 H 20 112/68 93 01/29/21 06:55 92 01/29/21 05:39 37.0 C 90 20 129/61 88 L 01/29/21 05:16 90 Laboratory Results Laboratory Results - last 24 hr 01/28/21 01/28/21 01/29/21 16:28 20:13 07:33 POC Glucose 156 H 237 H 149 H 01/29/21 11:12 POC Glucose 249 H Medications Administered Current Inpatient Medications Acetaminophen (Acetaminophen 325 Mg Tab) 650 mg PO Q4H PRN PRN Reason: Pain or Fever Stop: 02/14/21 08:39 Last Admin: 01/25/21 13:35 Dose: 650 mg Documented by: Albuterol (Albuterol Hfa 8 Gm Inhaler) 2 puffs INH Q2R PRN PRN Reason: Shortness Of Breath Stop: 02/14/21 08:48 Last Admin: 01/21/21 07:37 Dose: 2 puffs Documented by: Albuterol (Albut/Ipratrop 3mg/0.5mg Neb 3 Ml Vial) 3 ml NEB Q2R PRN PRN Reason: Shortness Of Breath Or Wheezing Stop: 02/23/21 08:23 Amlodipine Besylate (Amlodipine Besylate 5 Mg Tab) 5 mg PO DAILY LEIF Stop: 02/16/21 08:59 Last Admin: 01/24/21 08:43 Dose: 5 mg Documented by: Atorvastatin Calcium (Atorvastatin 40 Mg Tab) 40 mg PO QAM LE[facility] Stop: 02/24/21 08:59 Last Admin: 01/29/21 09:10 Dose: 40 mg Documented by: Clopidogrel Bisulfate (Clopidogrel Bisulfate 75 Mg Tab) 75 mg PO QAM [facility] Stop: 02/24/21 13:59 Last Admin: 01/29/21 09:10 Dose: 75 mg Documented by: Dextrose (Dextrose 50% 50 Ml Syringe) 25 - 50 ml IV UD PRN; Protocol PRN Reason: Hypoglycemia Protocol Stop: 02/14/21 08:39 Last Admin: 01/24/21 22:36 Dose: 50 ml Documented by: Enoxaparin Sodium (Enoxaparin Inj 40 Mg/0.4 Ml Syr) 40 mg SQ HS LEIF Stop: 02/24/21 22:44 Last Admin: 01/28/21 20:37 Dose: 40 mg Documented by: Fluticasone Propionate (Fluticasone Propionate Na Spr 16 Gm Btl) 2 sprays NA BID LEIF Stop: 02/17/21 22:14 Last Admin: 01/29/21 09:10 Dose: Not Given Documented by: Furosemide (Furosemide 40 Mg/4 Ml Vial) 20 mg IV QAM LEIF Stop: 02/27/21 08:59 Last Admin: 01/29/21 09:32 Dose: 20 mg Documented by: Glucagon (Glucagon For Inj 1 Mg Vial) 1 mg SQ UD PRN; Protocol PRN Reason: Hypoglycemia Protocol Stop: 02/14/21 08:39 Glucose (Glucose 10 Tabs/Tube) 4 - 8 tabs PO UD PRN; Protocol PRN Reason: Hypoglycemia Protocol Stop: 02/14/21 08:39 Glucose (Glucose 40% Gel 15 Gm Tube) 15 - 30 gm PO UD PRN; Protocol PRN Reason: Hypoglycemia Protocol Stop: 02/14/21 08:39 Guaifenesin (Guaifenesin 600 Mg Tabcr) 1,200 mg PO Q12 LEIF Stop: 02/14/21 08:59 Last Admin: 01/29/21 09:10 Dose: 1,200 mg Documented by: Insulin Aspart (Insulin Aspart 100 Units/Ml 3 Ml Pen) 0 units SC ACHS LE[facility] Stop: 02/14/21 08:39 Last Admin: 01/29/21 12:31 Dose: 11 units Documented by: Insulin Glargine (Insulin Glargine Solostar 100 Units/Ml 3 Ml Pen) 10 units SC HS [facility] Stop: 02/24/21 20:59 Last Admin: 01/28/21 20:38 Dose: 10 units Documented by: Insulin Glargine (Insulin Glargine Solostar 100 Units/Ml 3 Ml Pen) 8 units SC QAM [facility] Stop: 02/27/21 08:59 Last Admin: 01/29/21 09:32 Dose: 8 units Documented by: Lisinopril (Lisinopril 20 Mg Tab) 20 mg PO DAILY [facility] Stop: 02/21/21 08:59 Last Admin: 01/24/21 08:43 Dose: 20 mg Documented by: Loperamide HCl (Loperamide Hcl 2 Mg Cap) 2 mg PO Q4 PRN PRN Reason: Loose Stool Stop: 02/20/21 10:42 Last Admin: 01/21/21 18:08 Dose: 2 mg Documented by: Menthol (Cough Drop (Sugar Free) Checo 24 Checo/1 Box) 1 checo BUCCAL Q2H PRN PRN Reason: Sore Throat Stop: 02/17/21 20:48 Last Admin: 01/23/21 21:27 Dose: 1 checo Documented by: Miscellaneous (Carbohydrates For Hypoglycemia ) 15 - 30 gm PO UD PRN PRN Reason: Hypoglycemia Protocol Stop: 02/14/21 08:39 Miscellaneous Information (Pharmacist Discharge Med Rec Consult) 1 ea N/A UD PRN PRN Reason: Consult Stop: 02/23/21 20:49 Nitroglycerin (Nitroglycerin Sl 0.4 Mg/Tab Tab) 0.4 mg SL UD PRN PRN Reason: Chest Pain Stop: 02/14/21 08:39 Ondansetron HCl (Ondansetron Inj 2 Mg/Ml 2 Ml Vial) 4 mg IV Q6H PRN PRN Reason: Nausea Stop: 02/14/21 08:39 PG Care Time/CCT Total # of Minutes Spent Total Time Spent with Patient: Total time spent is greater than 50% in coordination of care (as documented) at patient's floor/unit and/or counseling patient: Coding Level of Care Code 48000 Subseq Hosp Care Lvl 2 Diagnoses Pneumonia due to COVID-19 virus U07.1; J12.82 CVA (cerebral vascular accident) I63.9 Hypoxia R09.02 Diabetes mellitus E11.9 Hypertension I10 Morbid obesity with BMI of 40.0-44.9, adult E66.01; Z68.41 Hypokalemia E87.6 Diarrhea R19.7
[2021-01-29] MEDS ORDERED: FUROSEMIDE 20 MG in SYRINGE 0 ML IV ONE (16:05)
[2021-01-29] MEDS ORDERED: FUROSEMIDE 40 MG/4 ML VIAL IV ONE (16:15)
[2021-01-29] MEDS: ENOXAPARIN INJ 40 MG/0.4 ML SYR SQ SCH (20:46)
[2021-01-30] MEDS: INSULIN ASPART 100 UNITS/ML 3 ML PEN SC SCH ×4 (08:36→21:43)
[2021-01-30] MEDS: ATORVASTATIN 40 MG TAB PO SCH (08:37)
[2021-01-30] MEDS: CLOPIDOGREL BISULFATE 75 MG TAB PO SCH (08:37)
[2021-01-30] MEDS: guaiFENesin 600 MG TABCR PO SCH (08:38)
[2021-01-30] MEDS: INSULIN GLARGINE SOLOSTAR 100 UNITS/ML 3 ML PEN SC SCH ×2 (08:38→21:42)
[2021-01-30] MEDS: FLUTICASONE PROPIONATE NA SPR 16 GM BTL SCH ×2 (08:39→21:21)
[2021-01-30] MEDS: FUROSEMIDE 40 MG/4 ML VIAL IV SCH (08:55)
--- NOTE | 2021-01-30 10:16 | Hospitalist Progress Note ---
Date of Service January 30, 2021 Assessment & Plan (1) Pneumonia due to COVID-19 virus: Plan: Chest x-ray with bilateral airspace opacities and interstitial thickening suggestive of viral pneumonia With acute respiratory failure with hypoxia Remains on high flow nasal cannula -remained on 40 L and 90-100 % FiO2 with no improvements for many days on 35L and 75% today, no distress, trying to lay on his side and prone Completed a 10-day course of dexamethasone 6 mg IV daily Remdesivir IV daily, completed 5 days on 01/19 Azithromycin 500 mg IV daily, completed 7 days on 01/21 There was no role for tocilizumab Continue PRN duo nebs Continue to get out of bed and sitting up in chair -Continue flutter valve,incentive spirometer (great compliance, can pull in 2000-2500mL) laying prone at night, on his side as well continue Lasix 20mg IV BID check BMP in AM (2) CVA (cerebral vascular accident): Plan: On the evening of 01/24, developed acute onset of right upper extremity weakness and right sided facial droop-stroke alert was called CT head with 6 mm left shelton radiata hyperdensity which could represent hemorrhage versus calcification, no old imaging to compare to Telestroke neurologist recommended holding Lovenox, no antiplatelets, repeat CT head the following day to reassess for hemorrhage Discussed with neurosurgeon-no role for intervention CT angiogram head and neck with left 65% LICA stenosis at the proximal cervical segment and right less than 50% stenosis of proximal right ICA. 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 once daily -Plan to get MRI of the brain later in the admission when his respiratory status is improved, perhaps when he can lay flat -lipid panel good but starting atorvastatin 40 mg daily anyway given acute stroke -Echocardiogram with mild RV dilation, but negative bubble study and normal otherwise -Continue neuro checks, PT/OT/speech therapy -Appreciate speech therapy consultation-cleared for diet -Permissive hypertension-continue holding lisinopril and amlodipine, but okay to restart IV Lasix as blood pressures are improving -Consulted neurology by phone given that the patient is in the Covid unit- neurology recommends Plavix, statin, brain MRI when able to from a respiratory standpoint (3) Hypoxia: Plan: As above, secondary to Covid-19 pneumonia slowly improving, goal is to wean oxygen down enough to discharge by the end of the week but not sure that will happen (4) Diabetes mellitus: Plan: With significant hyperglycemia which then improved with increased doses of insulin, but then became hypoglycemic later in the evening on 01/24 Hypoglycemic again on the morning of 01/25 despite holding all insulin the evening before sugars acceptable the past 24 hours, 120-240's Continue to titrate back up on Lantus-increase to 8 units in the morning and continue 10 units at bedtime Continue NovoLog and tighten down again Hemoglobin A1c significantly uncontrolled at 9.3% He will need close follow-up with his PCP after discharge Holding home metformin and Jardiance (5) Hypertension: Plan: permissive hypertension in the setting of TIA/CVA Continue to hold Norvasc and lisinopril, BP low normal Lasix 20mg IV BID resumed (6) Morbid obesity with BMI of 40.0-44.9, adult: Plan: BMI 40.4 Needs weight loss (7) Hypokalemia: Plan: normal when last checked, repeat tomorrow (8) Diarrhea: Plan: With multiple episodes daily-likely secondary to Covid-19 and also was on azithromycin Azithromycin now completed C. difficile checked and was negative Diarrhea is now resolved Plan: Lovenox SQ was on hold due to possible intracranial hemorrhage, but restarted at 40 mg once daily on 01/25 Disposition-continued stay on telemetry, slow recovery with severe hypoxia as well as acute CVA. goal would be discharge by end of the week but unsure that will happen PT evaluation-recommends acute rehab versus home if improves by the time of discharge. he does not want to consider rehab OT recommends acute rehab Admission and Anticipated Discharge Date Admission Date: January 15, 2021 Subjective patient says he made a lot of urine yesterday afternoon with the extra Lasix 20mg IV, will repeat that this afternoon eating well, moving his bowels, participating with therapy this morning right arms strength continues to improve, speech clear just waiting on oxygen to improve, still on 30L and 70%, might try wall high flow again today updated RN about plan Review of Systems Review of Systems: All systems reviewed & are unremarkable except as noted in Subjective Constitutional: no fever, no fatigue and no weakness Respiratory: + dyspnea and + dyspnea on exertion; no cough Cardiovascular: no chest pain and no edema Gastrointestinal: no abdominal pain, no nausea, no vomiting, no constipation and no diarrhea/loose stools Physical Exam Physical Exam: General: well developed, well nourished, obese male, ill appearing Neck: supple, trachea midline, normal thyroid Lungs: lungs clear, normal effort, no accessory muscle use, no wheezing Heart: regular S1 and S2, no murmur, peripheral pulses normal, capillary refill normal, no edema Abdomen: soft, NT, ND, + BS, no hepatomegaly, normal to percussion Extremities: normal in appearance, no cyanosis, no petechiae, decreased strength right UE Neuro: awake, cooperative, moves all extremities, no focal motor deficits, CN II-XII intact, sensation in extremities intact, normal speech Skin: warm, dry, no rash, normal turgor Psych: Awake, alert oriented x 3, euthymic affect Results & Data Results & Data ([facility]) Vital Signs (Past 12 Hours) Vital Signs Temp Pulse Pulse Resp BP BP BP 01/30/21 08:25 53 L 20 01/30/21 07:24 36.8 C 82 20 102/56 L 01/30/21 05:35 36.7 C 88 18 107/54 L 01/30/21 03:41 98 H 22 01/29/21 23:24 86 01/29/21 23:18 107 H 22 01/29/21 23:00 36.7 C 96 H 12 136/78 Pulse Ox 01/30/21 08:25 92 01/30/21 07:24 91 01/30/21 05:35 88 L 01/30/21 03:41 89 L 01/29/21 23:24 01/29/21 23:18 88 L 01/29/21 23:00 91 Laboratory Results Laboratory Results - last 24 hr 01/29/21 01/29/21 01/29/21 11:12 16:12 20:05 POC Glucose 249 H 103 H 188 H 01/30/21 07:26 POC Glucose 144 H Medications Administered Current Inpatient Medications Acetaminophen (Acetaminophen 325 Mg Tab) 650 mg PO Q4H PRN PRN Reason: Pain or Fever Stop: 02/14/21 08:39 Last Admin: 01/25/21 13:35 Dose: 650 mg Documented by: Albuterol (Albuterol Hfa 8 Gm Inhaler) 2 puffs INH Q2R PRN PRN Reason: Shortness Of Breath Stop: 02/14/21 08:48 Last Admin: 01/21/21 07:37 Dose: 2 puffs Documented by: Albuterol (Albut/Ipratrop 3mg/0.5mg Neb 3 Ml Vial) 3 ml NEB Q2R PRN PRN Reason: Shortness Of Breath Or Wheezing Stop: 02/23/21 08:23 Amlodipine Besylate (Amlodipine Besylate 5 Mg Tab) 5 mg PO DAILY [facility] Stop: 02/16/21 08:59 Last Admin: 01/24/21 08:43 Dose: 5 mg Documented by: Atorvastatin Calcium (Atorvastatin 40 Mg Tab) 40 mg PO QAM LEIF Stop: 02/24/21 08:59 Last Admin: 01/30/21 08:37 Dose: 40 mg Documented by: Clopidogrel Bisulfate (Clopidogrel Bisulfate 75 Mg Tab) 75 mg PO QAM LEIF Stop: 02/24/21 13:59 Last Admin: 01/30/21 08:37 Dose: 75 mg Documented by: Dextrose (Dextrose 50% 50 Ml Syringe) 25 - 50 ml IV UD PRN; Protocol PRN Reason: Hypoglycemia Protocol Stop: 02/14/21 08:39 Last Admin: 01/24/21 22:36 Dose: 50 ml Documented by: Enoxaparin Sodium (Enoxaparin Inj 40 Mg/0.4 Ml Syr) 40 mg SQ HS LEIF Stop: 02/24/21 22:44 Last Admin: 01/29/21 20:46 Dose: 40 mg Documented by: Fluticasone Propionate (Fluticasone Propionate Na Spr 16 Gm Btl) 2 sprays NA BID LEIF Stop: 02/17/21 22:14 Last Admin: 01/30/21 08:39 Dose: Not Given Documented by: Furosemide (Furosemide 40 Mg/4 Ml Vial) 20 mg IV QAM LEIF Stop: 02/27/21 08:59 Last Admin: 01/30/21 08:55 Dose: 20 mg Documented by: Glucagon (Glucagon For Inj 1 Mg Vial) 1 mg SQ UD PRN; Protocol PRN Reason: Hypoglycemia Protocol Stop: 02/14/21 08:39 Glucose (Glucose 10 Tabs/Tube) 4 - 8 tabs PO UD PRN; Protocol PRN Reason: Hypoglycemia Protocol Stop: 02/14/21 08:39 Glucose (Glucose 40% Gel 15 Gm Tube) 15 - 30 gm PO UD PRN; Protocol PRN Reason: Hypoglycemia Protocol Stop: 02/14/21 08:39 Guaifenesin (Guaifenesin 600 Mg Tabcr) 1,200 mg PO Q12 LEIF Stop: 02/14/21 08:59 Last Admin: 01/30/21 08:38 Dose: 1,200 mg Documented by: Insulin Aspart (Insulin Aspart 100 Units/Ml 3 Ml Pen) 0 units SC ACHS [facility] Stop: 02/14/21 08:39 Last Admin: 01/30/21 08:36 Dose: 10 units Documented by: Insulin Glargine (Insulin Glargine Solostar 100 Units/Ml 3 Ml Pen) 10 units SC HS [facility] Stop: 02/24/21 20:59 Last Admin: 01/29/21 20:53 Dose: 10 units Documented by: Insulin Glargine (Insulin Glargine Solostar 100 Units/Ml 3 Ml Pen) 8 units SC QAM [facility] Stop: 02/27/21 08:59 Last Admin: 01/30/21 08:38 Dose: 8 units Documented by: Lisinopril (Lisinopril 20 Mg Tab) 20 mg PO DAILY [facility] Stop: 02/21/21 08:59 Last Admin: 01/24/21 08:43 Dose: 20 mg Documented by: Loperamide HCl (Loperamide Hcl 2 Mg Cap) 2 mg PO Q4 PRN PRN Reason: Loose Stool Stop: 02/20/21 10:42 Last Admin: 01/21/21 18:08 Dose: 2 mg Documented by: Menthol (Cough Drop (Sugar Free) Checo 24 Checo/1 Box) 1 checo BUCCAL Q2H PRN PRN Reason: Sore Throat Stop: 02/17/21 20:48 Last Admin: 01/23/21 21:27 Dose: 1 checo Documented by: Miscellaneous (Carbohydrates For Hypoglycemia ) 15 - 30 gm PO UD PRN PRN Reason: Hypoglycemia Protocol Stop: 02/14/21 08:39 Miscellaneous Information (Pharmacist Discharge Med Rec Consult) 1 ea N/A UD PRN PRN Reason: Consult Stop: 02/23/21 20:49 Nitroglycerin (Nitroglycerin Sl 0.4 Mg/Tab Tab) 0.4 mg SL UD PRN PRN Reason: Chest Pain Stop: 02/14/21 08:39 Ondansetron HCl (Ondansetron Inj 2 Mg/Ml 2 Ml Vial) 4 mg IV Q6H PRN PRN Reason: Nausea Stop: 02/14/21 08:39 PG Care Time/CCT Total # of Minutes Spent Total Time Spent with Patient: Total time spent is greater than 50% in coordination of care (as documented) at patient's floor/unit and/or counseling patient: Coding Level of Care Code 70721 Subseq Hosp Care Lvl 3 Diagnoses Pneumonia due to COVID-19 virus U07.1; J12.82 CVA (cerebral vascular accident) I63.9 Hypoxia R09.02 Diabetes mellitus E11.9 Hypertension I10 Morbid obesity with BMI of 40.0-44.9, adult E66.01; Z68.41 Hypokalemia E87.6 Diarrhea R19.7
[2021-01-30] MEDS ORDERED: FUROSEMIDE 40 MG/4 ML VIAL IV ONE (14:00)
[2021-01-30] MEDS ORDERED: FUROSEMIDE 20 MG in SYRINGE 0 ML IV ONE (14:00)
[2021-01-30] MEDS: ENOXAPARIN INJ 40 MG/0.4 ML SYR SQ SCH (21:21)
[2021-01-31 07:56] LABS: Hematocrit (blood only) 42.2 % (42-52); Mean Corpuscular Hemoglobin 28.6 pg (25-34); Mean Corpuscular Hgb Conc 33.2 g/dL (32-36); Mean Corpuscular Volume 86.3 fL (80-100); Mean Platelet Volume 9.9 fL (7.4-10.4); Platelet Count 270 K/uL (130-400); RDW Coefficient of Variation 13.3 % (11.5-14.5); RDW Standard Deviation 42.1 fL (36.4-46.3); Red Blood Count 4.89 M/uL (4.7-6.1); White Blood Count 8.94 K/uL (4.8-10.8)
[2021-01-31 08:22] LABS: BUN Creatinine Ratio 31.1 (10-20); Calcium 9.1 mg/dl (8.5-10.1); Creatinine Clr Calc Pharmacy 132.4 ml/min; Est GFR (African American) 114.8 ml/min
[2021-01-31 08:23] LABS: C Reactive Protein 1.56 mg/dl (0-0.29); Magnesium 2.2 mg/dl (1.8-2.4)
[2021-01-31] MEDS: INSULIN ASPART 100 UNITS/ML 3 ML PEN SC SCH ×4 (08:45→21:11)
[2021-01-31] MEDS: CLOPIDOGREL BISULFATE 75 MG TAB PO SCH (09:21)
[2021-01-31] MEDS: ATORVASTATIN 40 MG TAB PO SCH (09:21)
[2021-01-31] MEDS: FLUTICASONE PROPIONATE NA SPR 16 GM BTL SCH ×2 (09:22→21:03)
[2021-01-31] MEDS: INSULIN GLARGINE SOLOSTAR 100 UNITS/ML 3 ML PEN SC SCH ×2 (09:31→21:11)
--- NOTE | 2021-01-31 09:48 | Hospitalist Progress Note ---
Date of Service January 31, 2021 Assessment & Plan (1) Pneumonia due to COVID-19 virus: Plan: Chest x-ray with bilateral airspace opacities and interstitial thickening suggestive of viral pneumonia With acute respiratory failure with hypoxia Remains on high flow nasal cannula on 30L and 75% today, no distress, trying to lay on his side and prone he makes some progress during the day then needs to be turned up at night Completed a 10-day course of dexamethasone 6 mg IV daily, CRP is only 1.5 today Remdesivir IV daily, completed 5 days on 01/19 Azithromycin 500 mg IV daily, completed 7 days on 01/21 There was no role for tocilizumab Continue PRN duo nebs Continue to get out of bed and sitting up in chair -Continue flutter valve,incentive spirometer (great compliance, can pull in 2000-2500mL) laying prone at night, on his side as well continue Lasix 40mg PO daily (2) CVA (cerebral vascular accident): Plan: On the evening of 01/24, developed acute onset of right upper extremity weakness and right sided facial droop-stroke alert was called CT head with 6 mm left shelton radiata hyperdensity which could represent hemorrhage versus calcification, no old imaging to compare to Telestroke neurologist recommended holding Lovenox, no antiplatelets, repeat CT head the following day to reassess for hemorrhage Discussed with neurosurgeon-no role for intervention CT angiogram head and neck with left 65% LICA stenosis at the proximal cervical segment and right less than 50% stenosis of proximal right ICA. 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 once daily -Plan to get MRI of the brain later in the admission when his respiratory status is improved, perhaps when he can lay flat -lipid panel good but starting atorvastatin 40 mg daily anyway given acute stroke -Echocardiogram with mild RV dilation, but negative bubble study and normal otherwise -Continue neuro checks, PT/OT/speech therapy -Appreciate speech therapy consultation-cleared for diet -Permissive hypertension-continue holding lisinopril and amlodipine, but okay to restart IV Lasix as blood pressures are improving -Consulted neurology by phone given that the patient is in the Covid unit- neurology recommends Plavix, statin, brain MRI when able to from a respiratory standpoint (3) Hypoxia: Plan: As above, secondary to Covid-19 pneumonia slowly improving, goal is to wean oxygen down enough to discharge by the end of the week but not sure that will happen might need to consider LTACH for him if he cannot come off high flow (4) Diabetes mellitus: Plan: With significant hyperglycemia which then improved with increased doses of insulin, but then became hypoglycemic later in the evening on 01/24 Hypoglycemic again on the morning of 01/25 despite holding all insulin the evening before sugars acceptable the past 24 hours, 120-240's Continue to titrate back up on Lantus-increase to 8 units in the morning and continue 10 units at bedtime Continue NovoLog and tighten down again Hemoglobin A1c significantly uncontrolled at 9.3% He will need close follow-up with his PCP after discharge Holding home metformin and Jardiance (5) Hypertension: Plan: permissive hypertension in the setting of TIA/CVA Continue to hold Norvasc and lisinopril, BP low normal Lasix 40mg PO daily (6) Morbid obesity with BMI of 40.0-44.9, adult: Plan: BMI 40.4 Needs weight loss (7) Hypokalemia: Plan: normal when last checked, repeat tomorrow (8) Diarrhea: Plan: With multiple episodes daily-likely secondary to Covid-19 and also was on azithromycin Azithromycin now completed C. difficile checked and was negative Diarrhea is now resolved Plan: Lovenox SQ was on hold due to possible intracranial hemorrhage, but restarted at 40 mg once daily on 01/25 Disposition- downgrade to med VCNC, can have IV out for now PT evaluation-recommends acute rehab versus home if improves by the time of discharge. he does not want to consider rehab OT recommends acute rehab Admission and Anticipated Discharge Date Admission Date: January 15, 2021 Subjective patient doing well this morning, sitting up in a chair, breathing well, ate a good breakfast will change Lasix to PO so he does not need a new IV, only IV medication discussed that we might need to look into LTACH for him as he has been on high flow for over two weeks, otherwise stable labs this morning show that CBC stable, BMP stable, CRP still only 1.5 we can give him the weekend to try to come off high flow Review of Systems Review of Systems: All systems reviewed & are unremarkable except as noted in Subjective Physical Exam Physical Exam: General: well developed, well nourished, obese male, comfortable Neck: supple, trachea midline, normal thyroid Lungs: lungs clear, normal effort, no accessory muscle use, no wheezing Heart: regular S1 and S2, no murmur, peripheral pulses normal, capillary refill normal, no edema Abdomen: soft, NT, ND, + BS, no hepatomegaly, normal to percussion Extremities: normal in appearance, no cyanosis, no petechiae, decreased strength right UE Neuro: awake, cooperative, moves all extremities, no focal motor deficits, CN II-XII intact, sensation in extremities intact, normal speech Skin: warm, dry, no rash, normal turgor Psych: Awake, alert oriented x 3, euthymic affect Results & Data Results & Data ([facility]) Vital Signs (Past 12 Hours) Vital Signs Temp Pulse Pulse Pulse Resp BP Pulse Ox 01/31/21 08:02 99 H 20 90 01/31/21 07:40 36.7 C 101 H 22 119/66 90 01/31/21 04:07 36.7 C 95 H 22 125/65 91 01/31/21 01:38 74 19 89 L 01/30/21 23:59 89 01/30/21 23:11 36.9 C 97 H 20 126/78 93 01/30/21 22:12 100 H 19 93 Laboratory Results Laboratory Results - last 24 hr 01/30/21 01/30/21 01/30/21 11:43 16:26 21:25 WBC RBC Hgb Hct MCV MCH MCHC RDW Std Deviation RDW Coeff of Carmela Plt Count MPV Sodium Potassium Chloride Carbon Dioxide Anion Gap BUN Creatinine Est Cr Clr Drug Dosing Est GFR ( Amer) Est GFR (Non-Af Amer) BUN/Creatinine Ratio Glucose POC Glucose 230 H 163 H 180 H Calcium Magnesium C-Reactive Protein Procalcitonin 01/31/21 01/31/21 01/31/21 07:05 07:05 07:05 WBC 8.94 RBC 4.89 Hgb 14.0 Hct 42.2 MCV 86.3 MCH 28.6 MCHC 33.2 RDW Std Deviation 42.1 RDW Coeff of Carmela 13.3 Plt Count 270 MPV 9.9 Sodium 137 Potassium 4.0 Chloride 99 Carbon Dioxide 31 Anion Gap 7.0 BUN 22 H Creatinine 0.70 Est Cr Clr Drug Dosing 132.4 Est GFR ( Amer) 114.8 Est GFR (Non-Af Amer) 99.0 BUN/Creatinine Ratio 31.1 H Glucose 150 H POC Glucose Calcium 9.1 Magnesium 2.2 C-Reactive Protein 1.56 H Procalcitonin < 0.05 01/31/21 07:38 WBC RBC Hgb Hct MCV MCH MCHC RDW Std Deviation RDW Coeff of Carmela Plt Count MPV Sodium Potassium Chloride Carbon Dioxide Anion Gap BUN Creatinine Est Cr Clr Drug Dosing Est GFR ( Amer) Est GFR (Non-Af Amer) BUN/Creatinine Ratio Glucose POC Glucose 145 H Calcium Magnesium C-Reactive Protein Procalcitonin Medications Administered Current Inpatient Medications Acetaminophen (Acetaminophen 325 Mg Tab) 650 mg PO Q4H PRN PRN Reason: Pain or Fever Stop: 02/14/21 08:39 Last Admin: 01/25/21 13:35 Dose: 650 mg Documented by: Albuterol (Albuterol Hfa 8 Gm Inhaler) 2 puffs INH Q2R PRN PRN Reason: Shortness Of Breath Stop: 02/14/21 08:48 Last Admin: 01/21/21 07:37 Dose: 2 puffs Documented by: Albuterol (Albut/Ipratrop 3mg/0.5mg Neb 3 Ml Vial) 3 ml NEB Q2R PRN PRN Reason: Shortness Of Breath Or Wheezing Stop: 02/23/21 08:23 Amlodipine Besylate (Amlodipine Besylate 5 Mg Tab) 5 mg PO DAILY LEIF Stop: 02/16/21 08:59 Last Admin: 01/24/21 08:43 Dose: 5 mg Documented by: Atorvastatin Calcium (Atorvastatin 40 Mg Tab) 40 mg PO QAM LEIF Stop: 02/24/21 08:59 Last Admin: 01/31/21 09:21 Dose: 40 mg Documented by: Clopidogrel Bisulfate (Clopidogrel Bisulfate 75 Mg Tab) 75 mg PO QAM LEIF Stop: 02/24/21 13:59 Last Admin: 01/31/21 09:21 Dose: 75 mg Documented by: Dextrose (Dextrose 50% 50 Ml Syringe) 25 - 50 ml IV UD PRN; Protocol PRN Reason: Hypoglycemia Protocol Stop: 02/14/21 08:39 Last Admin: 01/24/21 22:36 Dose: 50 ml Documented by: Enoxaparin Sodium (Enoxaparin Inj 40 Mg/0.4 Ml Syr) 40 mg SQ HS [facility] Stop: 02/24/21 22:44 Last Admin: 01/30/21 21:21 Dose: 40 mg Documented by: Fluticasone Propionate (Fluticasone Propionate Na Spr 16 Gm Btl) 2 sprays NA BID LEIF Stop: 02/17/21 22:14 Last Admin: 01/31/21 09:22 Dose: Not Given Documented by: Furosemide (Furosemide 40 Mg/4 Ml Vial) 20 mg IV QAM [facility] Stop: 02/27/21 08:59 Last Admin: 01/30/21 08:55 Dose: 20 mg Documented by: Glucagon (Glucagon For Inj 1 Mg Vial) 1 mg SQ UD PRN; Protocol PRN Reason: Hypoglycemia Protocol Stop: 02/14/21 08:39 Glucose (Glucose 10 Tabs/Tube) 4 - 8 tabs PO UD PRN; Protocol PRN Reason: Hypoglycemia Protocol Stop: 02/14/21 08:39 Glucose (Glucose 40% Gel 15 Gm Tube) 15 - 30 gm PO UD PRN; Protocol PRN Reason: Hypoglycemia Protocol Stop: 02/14/21 08:39 Insulin Aspart (Insulin Aspart 100 Units/Ml 3 Ml Pen) 0 units SC ACHS [facility] Stop: 02/14/21 08:39 Last Admin: 01/31/21 08:45 Dose: 9 units Documented by: Insulin Glargine (Insulin Glargine Solostar 100 Units/Ml 3 Ml Pen) 10 units SC [facility] Stop: 02/24/21 20:59 Last Admin: 01/30/21 21:42 Dose: 10 units Documented by: Insulin Glargine (Insulin Glargine Solostar 100 Units/Ml 3 Ml Pen) 8 units SC QAM [facility] Stop: 02/27/21 08:59 Last Admin: 01/31/21 09:31 Dose: 8 units Documented by: Lisinopril (Lisinopril 20 Mg Tab) 20 mg PO DAILY LEIF Stop: 02/21/21 08:59 Last Admin: 01/24/21 08:43 Dose: 20 mg Documented by: Loperamide HCl (Loperamide Hcl 2 Mg Cap) 2 mg PO Q4 PRN PRN Reason: Loose Stool Stop: 02/20/21 10:42 Last Admin: 01/21/21 18:08 Dose: 2 mg Documented by: Menthol (Cough Drop (Sugar Free) Checo 24 Checo/1 Box) 1 checo BUCCAL Q2H PRN PRN Reason: Sore Throat Stop: 02/17/21 20:48 Last Admin: 01/23/21 21:27 Dose: 1 checo Documented by: Miscellaneous (Carbohydrates For Hypoglycemia ) 15 - 30 gm PO UD PRN PRN Reason: Hypoglycemia Protocol Stop: 02/14/21 08:39 Miscellaneous Information (Pharmacist Discharge Med Rec Consult) 1 ea N/A UD PRN PRN Reason: Consult Stop: 02/23/21 20:49 Nitroglycerin (Nitroglycerin Sl 0.4 Mg/Tab Tab) 0.4 mg SL UD PRN PRN Reason: Chest Pain Stop: 02/14/21 08:39 Ondansetron HCl (Ondansetron Inj 2 Mg/Ml 2 Ml Vial) 4 mg IV Q6H PRN PRN Reason: Nausea Stop: 02/14/21 08:39 PG Care Time/CCT Total # of Minutes Spent Total Time Spent with Patient: Total time spent is greater than 50% in coordination of care (as documented) at patient's floor/unit and/or counseling patient: Coding Level of Care Code 41967 Subseq Hosp Care Lvl 2 Diagnoses Pneumonia due to COVID-19 virus U07.1; J12.82 CVA (cerebral vascular accident) I63.9 Hypoxia R09.02 Diabetes mellitus E11.9 Hypertension I10 Morbid obesity with BMI of 40.0-44.9, adult E66.01; Z68.41 Hypokalemia E87.6 Diarrhea R19.7
[2021-01-31] MEDS: FUROSEMIDE 40 MG/4 ML VIAL IV SCH (11:45)
[2021-01-31] MEDS: FUROSEMIDE 40 MG TAB PO SCH (13:18)
[2021-01-31] MEDS: ENOXAPARIN INJ 40 MG/0.4 ML SYR SQ SCH (21:12)
[2021-02-01] MEDS: INSULIN ASPART 100 UNITS/ML 3 ML PEN SC SCH ×4 (08:44→20:36)
[2021-02-01] MEDS: INSULIN GLARGINE SOLOSTAR 100 UNITS/ML 3 ML PEN SC SCH ×2 (08:44→20:37)
[2021-02-01] MEDS: ATORVASTATIN 40 MG TAB PO SCH (09:03)
[2021-02-01] MEDS: FLUTICASONE PROPIONATE NA SPR 16 GM BTL SCH ×2 (09:03→20:21)
[2021-02-01] MEDS: CLOPIDOGREL BISULFATE 75 MG TAB PO SCH (09:03)
[2021-02-01] MEDS: FUROSEMIDE 40 MG TAB PO SCH (09:03)
[2021-02-01] MEDS: ENOXAPARIN INJ 40 MG/0.4 ML SYR SQ SCH (20:10)
--- NOTE | 2021-02-01 21:19 | Hospitalist Progress Note ---
Date of Service February 01, 2021 Assessment & Plan (1) Pneumonia due to COVID-19 virus: Plan: Chest x-ray with bilateral airspace opacities and interstitial thickening suggestive of viral pneumonia With acute respiratory failure with hypoxia Remains on high flow nasal cannula on 35L and 75% today, no distress, trying to lay on his side and prone he makes some progress during the day then needs to be turned up at night Completed a 10-day course of dexamethasone 6 mg IV daily, CRP is only 1.5 when last checked Remdesivir IV daily, completed 5 days on 01/19 Azithromycin 500 mg IV daily, completed 7 days on 01/21 There was no role for tocilizumab Continue PRN duo nebs Continue to get out of bed and sitting up in chair -Continue flutter valve,incentive spirometer (great compliance, can pull in 2000-2500mL) laying prone at night, on his side as well continue Lasix 40mg PO daily (2) CVA (cerebral vascular accident): Plan: On the evening of 01/24, developed acute onset of right upper extremity weakness and right sided facial droop-stroke alert was called CT head with 6 mm left shelton radiata hyperdensity which could represent hemorrhage versus calcification, no old imaging to compare to Telestroke neurologist recommended holding Lovenox, no antiplatelets, repeat CT head the following day to reassess for hemorrhage Discussed with neurosurgeon-no role for intervention CT angiogram head and neck with left 65% LICA stenosis at the proximal cervical segment and right less than 50% stenosis of proximal right ICA. 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 once daily -Plan to get MRI of the brain later in the admission when his respiratory status is improved, perhaps when he can lay flat -lipid panel good but starting atorvastatin 40 mg daily anyway given acute stroke -Echocardiogram with mild RV dilation, but negative bubble study and normal otherwise -Continue neuro checks, PT/OT/speech therapy -Appreciate speech therapy consultation-cleared for diet -Permissive hypertension-continue holding lisinopril and amlodipine, but okay to restart IV Lasix as blood pressures are improving -Consulted neurology by phone given that the patient is in the Covid unit- neurology recommends Plavix, statin, brain MRI when able to from a respiratory standpoint (3) Hypoxia: Plan: As above, secondary to Covid-19 pneumonia slowly improving, goal is to wean oxygen down enough to discharge by the end of the week but not sure that will happen might need to consider LTACH for him if he cannot come off high flow over the weekend (4) Diabetes mellitus: Plan: With significant hyperglycemia which then improved with increased doses of insulin, but then became hypoglycemic later in the evening on 01/24 Hypoglycemic again on the morning of 01/25 despite holding all insulin the evening before sugars acceptable the past 24 hours, 120-240's Continue to titrate back up on Lantus-increase to 8 units in the morning and continue 10 units at bedtime Continue NovoLog and tighten down again Hemoglobin A1c significantly uncontrolled at 9.3% He will need close follow-up with his PCP after discharge Holding home metformin and Jardiance (5) Hypertension: Plan: permissive hypertension in the setting of TIA/CVA Continue to hold Norvasc and lisinopril, BP low normal Lasix 40mg PO daily (6) Morbid obesity with BMI of 40.0-44.9, adult: Plan: BMI 40.4 Needs weight loss (7) Hypokalemia: Plan: normal when last checked, repeat tomorrow (8) Diarrhea: Plan: With multiple episodes daily-likely secondary to Covid-19 and also was on azithromycin Azithromycin now completed C. difficile checked and was negative Diarrhea is now resolved Plan: Lovenox SQ was on hold due to possible intracranial hemorrhage, but restarted at 40 mg once daily on 01/25 Disposition- downgrade to [employer], can have IV out for now PT evaluation-recommends acute rehab versus home if improves by the time of discharge. he does not want to consider rehab OT recommends acute rehab Admission and Anticipated Discharge Date Admission Date: January 15, 2021 Subjective patient is the same today, still on 35L and 75% FiO2 no distress at all, sitting up in a chair nights are tough, he says they wake him every 45 minutes to get him to move on his stomach I told him they are just doing their job, keeping sats up he is eating well, making urine every morning with Lasix Review of Systems Review of Systems: All systems reviewed & are unremarkable except as noted in Subjective Respiratory: + dyspnea on exertion Physical Exam Physical Exam: General: well developed, well nourished, obese male, comfortable Neck: supple, trachea midline, normal thyroid Lungs: lungs clear, normal effort, no accessory muscle use, no wheezing Heart: regular S1 and S2, no murmur, peripheral pulses normal, capillary refill normal, no edema Abdomen: soft, NT, ND, + BS, no hepatomegaly, normal to percussion Extremities: normal in appearance, no cyanosis, no petechiae, decreased strength right UE Neuro: awake, cooperative, moves all extremities, no focal motor deficits, CN II-XII intact, sensation in extremities intact, normal speech Skin: warm, dry, no rash, normal turgor Psych: Awake, alert oriented x 3, euthymic affect Results & Data Results & Data ([facility]) Vital Signs (Past 12 Hours) Vital Signs Temp Pulse Pulse Resp BP Pulse Ox 02/01/21 20:19 37.1 C 100 H 19 157/109 H 94 02/01/21 19:55 102 H 20 91 02/01/21 16:00 94 H 02/01/21 15:33 36.9 C 95 H 22 143/76 H 90 02/01/21 15:19 19 91 02/01/21 11:47 36.6 C 92 H 22 138/72 96 02/01/21 11:35 18 91 Laboratory Results Laboratory Results - last 24 hr 01/31/21 02/01/21 02/01/21 21:09 07:13 11:45 POC Glucose 167 H 160 H 282 H 02/01/21 02/01/21 16:43 20:11 POC Glucose 120 H 197 H Medications Administered Current Inpatient Medications Acetaminophen (Acetaminophen 325 Mg Tab) 650 mg PO Q4H PRN PRN Reason: Pain or Fever Stop: 02/14/21 08:39 Last Admin: 01/25/21 13:35 Dose: 650 mg Documented by: Albuterol (Albuterol Hfa 8 Gm Inhaler) 2 puffs INH Q2R PRN PRN Reason: Shortness Of Breath Stop: 02/14/21 08:48 Last Admin: 01/21/21 07:37 Dose: 2 puffs Documented by: Albuterol (Albut/Ipratrop 3mg/0.5mg Neb 3 Ml Vial) 3 ml NEB Q2R PRN PRN Reason: Shortness Of Breath Or Wheezing Stop: 02/23/21 08:23 Atorvastatin Calcium (Atorvastatin 40 Mg Tab) 40 mg PO QAM [facility] Stop: 02/24/21 08:59 Last Admin: 02/01/21 09:03 Dose: 40 mg Documented by: Clopidogrel Bisulfate (Clopidogrel Bisulfate 75 Mg Tab) 75 mg PO QAM [facility] Stop: 02/24/21 13:59 Last Admin: 02/01/21 09:03 Dose: 75 mg Documented by: Dextrose (Dextrose 50% 50 Ml Syringe) 25 - 50 ml IV UD PRN; Protocol PRN Reason: Hypoglycemia Protocol Stop: 02/14/21 08:39 Last Admin: 01/24/21 22:36 Dose: 50 ml Documented by: Enoxaparin Sodium (Enoxaparin Inj 40 Mg/0.4 Ml Syr) 40 mg SQ HS [facility] Stop: 02/24/21 22:44 Last Admin: 02/01/21 20:10 Dose: 40 mg Documented by: Fluticasone Propionate (Fluticasone Propionate Na Spr 16 Gm Btl) 2 sprays NA BID [facility] Stop: 02/17/21 22:14 Last Admin: 02/01/21 20:21 Dose: Not Given Documented by: Furosemide (Furosemide 40 Mg Tab) 40 mg PO QAM [facility] Stop: 03/02/21 11:28 Last Admin: 02/01/21 09:03 Dose: 40 mg Documented by: Glucagon (Glucagon For Inj 1 Mg Vial) 1 mg SQ UD PRN; Protocol PRN Reason: Hypoglycemia Protocol Stop: 02/14/21 08:39 Glucose (Glucose 10 Tabs/Tube) 4 - 8 tabs PO UD PRN; Protocol PRN Reason: Hypoglycemia Protocol Stop: 02/14/21 08:39 Glucose (Glucose 40% Gel 15 Gm Tube) 15 - 30 gm PO UD PRN; Protocol PRN Reason: Hypoglycemia Protocol Stop: 02/14/21 08:39 Insulin Aspart (Insulin Aspart 100 Units/Ml 3 Ml Pen) 0 units SC ACHS [facility] Stop: 02/14/21 08:39 Last Admin: 02/01/21 20:36 Dose: 3 units Documented by: Insulin Glargine (Insulin Glargine Solostar 100 Units/Ml 3 Ml Pen) 10 units SC HS [facility] Stop: 02/24/21 20:59 Last Admin: 02/01/21 20:37 Dose: 10 units Documented by: Insulin Glargine (Insulin Glargine Solostar 100 Units/Ml 3 Ml Pen) 8 units SC QAM [facility] Stop: 02/27/21 08:59 Last Admin: 02/01/21 08:44 Dose: 8 units Documented by: Loperamide HCl (Loperamide Hcl 2 Mg Cap) 2 mg PO Q4 PRN PRN Reason: Loose Stool Stop: 02/20/21 10:42 Last Admin: 01/21/21 18:08 Dose: 2 mg Documented by: Menthol (Cough Drop (Sugar Free) Checo 24 Checo/1 Box) 1 checo BUCCAL Q2H PRN PRN Reason: Sore Throat Stop: 02/17/21 20:48 Last Admin: 01/23/21 21:27 Dose: 1 checo Documented by: Miscellaneous (Carbohydrates For Hypoglycemia ) 15 - 30 gm PO UD PRN PRN Reason: Hypoglycemia Protocol Stop: 02/14/21 08:39 Miscellaneous Information (Pharmacist Discharge Med Rec Consult) 1 ea N/A UD PRN PRN Reason: Consult Stop: 02/23/21 20:49 Nitroglycerin (Nitroglycerin Sl 0.4 Mg/Tab Tab) 0.4 mg SL UD PRN PRN Reason: Chest Pain Stop: 02/14/21 08:39 Ondansetron HCl (Ondansetron Inj 2 Mg/Ml 2 Ml Vial) 4 mg IV Q6H PRN PRN Reason: Nausea Stop: 02/14/21 08:39 PG Care Time/CCT Total # of Minutes Spent Total Time Spent with Patient: Total time spent is greater than 50% in coordination of care (as documented) at patient's floor/unit and/or counseling patient: Coding Level of Care Code 09504 Subseq Hosp Care Lvl 2 Diagnoses Pneumonia due to COVID-19 virus U07.1; J12.82 CVA (cerebral vascular accident) I63.9 Hypoxia R09.02 Diabetes mellitus E11.9 Hypertension I10 Morbid obesity with BMI of 40.0-44.9, adult E66.01; Z68.41 Hypokalemia E87.6 Diarrhea R19.7
[2021-02-02] MEDS: ATORVASTATIN 40 MG TAB PO SCH (09:00)
[2021-02-02] MEDS: FUROSEMIDE 40 MG TAB PO SCH (09:00)
[2021-02-02] MEDS: CLOPIDOGREL BISULFATE 75 MG TAB PO SCH (09:00)
[2021-02-02] MEDS: FLUTICASONE PROPIONATE NA SPR 16 GM BTL SCH ×2 (09:01→21:47)
[2021-02-02] MEDS: INSULIN ASPART 100 UNITS/ML 3 ML PEN SC SCH ×4 (09:52→21:30)
[2021-02-02] MEDS: INSULIN GLARGINE SOLOSTAR 100 UNITS/ML 3 ML PEN SC SCH ×2 (09:53→21:30)
--- NOTE | 2021-02-02 12:45 | Hospitalist Progress Note ---
Date of Service February 02, 2021 Assessment & Plan (1) Pneumonia due to COVID-19 virus: Plan: Chest x-ray with bilateral airspace opacities and interstitial thickening suggestive of viral pneumonia With acute respiratory failure with hypoxia Remains on high flow nasal cannula better today, right now down to 30L and 60% more compliant laying prone at night Completed a 10-day course of dexamethasone 6 mg IV daily, CRP is only 1.5 when last checked Remdesivir IV daily, completed 5 days on 01/19 Azithromycin 500 mg IV daily, completed 7 days on 01/21 There was no role for tocilizumab Continue PRN duo nebs Continue to get out of bed and sitting up in chair -Continue flutter valve,incentive spirometer (great compliance, can pull in 2000-2500mL) laying prone at night, on his side as well continue Lasix 40mg PO daily (2) CVA (cerebral vascular accident): Plan: On the evening of 01/24, developed acute onset of right upper extremity weakness and right sided facial droop-stroke alert was called CT head with 6 mm left shelton radiata hyperdensity which could represent hemorrhage versus calcification, no old imaging to compare to Telestroke neurologist recommended holding Lovenox, no antiplatelets, repeat CT head the following day to reassess for hemorrhage Discussed with neurosurgeon-no role for intervention CT angiogram head and neck with left 65% LICA stenosis at the proximal cervical segment and right less than 50% stenosis of proximal right ICA. 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 once daily -Plan to get MRI of the brain later in the admission when his respiratory status is improved, perhaps when he can lay flat -lipid panel good but starting atorvastatin 40 mg daily anyway given acute stroke -Echocardiogram with mild RV dilation, but negative bubble study and normal otherwise -Continue neuro checks, PT/OT/speech therapy -Appreciate speech therapy consultation-cleared for diet -Permissive hypertension-continue holding lisinopril and amlodipine, but okay to restart IV Lasix as blood pressures are improving -Consulted neurology by phone given that the patient is in the Covid unit- neurology recommends Plavix, statin, brain MRI when able to from a respiratory standpoint (3) Hypoxia: Plan: As above, secondary to Covid-19 pneumonia might need to consider LTACH for him if he cannot come off high flow over the weekend hopeful to get to 15L oxymask by tomorrow (4) Diabetes mellitus: Plan: With significant hyperglycemia which then improved with increased doses of insulin, but then became hypoglycemic later in the evening on 01/24 Hypoglycemic again on the morning of 01/25 despite holding all insulin the evening before sugars a little high today increase Lantus to 10 am and 10 pm tighten Novolog coverage Hemoglobin A1c significantly uncontrolled at 9.3% He will need close follow-up with his PCP after discharge Holding home metformin and Jardiance while admitted, resume on discharge (5) Hypertension: Plan: permissive hypertension in the setting of TIA/CVA Continue to hold Norvasc and lisinopril, BP low normal Lasix 40mg PO daily (6) Morbid obesity with BMI of 40.0-44.9, adult: Plan: BMI 40.4 Needs weight loss (7) Hypokalemia: Plan: normal when last checked, repeat tomorrow (8) Diarrhea: Plan: With multiple episodes daily-likely secondary to Covid-19 and also was on azithromycin Azithromycin now completed C. difficile checked and was negative Diarrhea is now resolved Plan: Lovenox SQ was on hold due to possible intracranial hemorrhage, but restarted at 40 mg once daily on 01/25 Disposition- downgrade to [employer], can have IV out for now PT evaluation-recommends acute rehab versus home if improves by the time of discharge. he does not want to consider rehab OT recommends acute rehab Admission and Anticipated Discharge Date Admission Date: January 15, 2021 Subjective patient says he feels great, he was really determined to stay on his stomach last night this morning he is down to 30L and 65%, he was 95%, turned him down to 60% FiO2 he is hoping to get down to 15L mask, would be a big step he continues to eat well, responds well to Lasix Review of Systems Review of Systems: All systems reviewed & are unremarkable except as noted in Subjective Physical Exam Physical Exam: General: well developed, well nourished, obese male, comfortable Neck: supple, trachea midline, normal thyroid Lungs: lungs clear, normal effort, no accessory muscle use, no wheezing Heart: regular S1 and S2, no murmur, peripheral pulses normal, capillary refill normal, no edema Abdomen: soft, NT, ND, + BS, no hepatomegaly, normal to percussion Extremities: normal in appearance, no cyanosis, no petechiae, decreased strength right UE Neuro: awake, cooperative, moves all extremities, no focal motor deficits, CN II-XII intact, sensation in extremities intact, normal speech Skin: warm, dry, no rash, normal turgor Psych: Awake, alert oriented x 3, euthymic affect Results & Data Results & Data ([facility]) Vital Signs (Past 12 Hours) Vital Signs Temp Pulse Resp BP Pulse Ox 02/02/21 11:42 36.6 C 103 H 24 125/80 93 02/02/21 07:52 90 20 96 02/02/21 06:33 36.5 C 102 H 17 129/75 92 02/02/21 04:53 88 18 100/52 L 90 02/02/21 03:50 76 16 94 Laboratory Results Laboratory Results - last 24 hr 02/01/21 02/01/21 02/02/21 16:43 20:11 07:39 POC Glucose 120 H 197 H 177 H 02/02/21 11:38 POC Glucose 326 H* Medications Administered Current Inpatient Medications Acetaminophen (Acetaminophen 325 Mg Tab) 650 mg PO Q4H PRN PRN Reason: Pain or Fever Stop: 02/14/21 08:39 Last Admin: 01/25/21 13:35 Dose: 650 mg Documented by: Albuterol (Albuterol Hfa 8 Gm Inhaler) 2 puffs INH Q2R PRN PRN Reason: Shortness Of Breath Stop: 02/14/21 08:48 Last Admin: 01/21/21 07:37 Dose: 2 puffs Documented by: Albuterol (Albut/Ipratrop 3mg/0.5mg Neb 3 Ml Vial) 3 ml NEB Q2R PRN PRN Reason: Shortness Of Breath Or Wheezing Stop: 02/23/21 08:23 Atorvastatin Calcium (Atorvastatin 40 Mg Tab) 40 mg PO QAM [facility] Stop: 02/24/21 08:59 Last Admin: 02/02/21 09:00 Dose: 40 mg Documented by: Clopidogrel Bisulfate (Clopidogrel Bisulfate 75 Mg Tab) 75 mg PO QAM [facility] Stop: 02/24/21 13:59 Last Admin: 02/02/21 09:00 Dose: 75 mg Documented by: Dextrose (Dextrose 50% 50 Ml Syringe) 25 - 50 ml IV UD PRN; Protocol PRN Reason: Hypoglycemia Protocol Stop: 02/14/21 08:39 Last Admin: 01/24/21 22:36 Dose: 50 ml Documented by: Enoxaparin Sodium (Enoxaparin Inj 40 Mg/0.4 Ml Syr) 40 mg SQ HS [facility] Stop: 02/24/21 22:44 Last Admin: 02/01/21 20:10 Dose: 40 mg Documented by: Fluticasone Propionate (Fluticasone Propionate Na Spr 16 Gm Btl) 2 sprays NA BID [facility] Stop: 02/17/21 22:14 Last Admin: 02/02/21 09:01 Dose: 2 sprays Documented by: Furosemide (Furosemide 40 Mg Tab) 40 mg PO QAM [facility] Stop: 03/02/21 11:28 Last Admin: 02/02/21 09:00 Dose: 40 mg Documented by: Glucagon (Glucagon For Inj 1 Mg Vial) 1 mg SQ UD PRN; Protocol PRN Reason: Hypoglycemia Protocol Stop: 02/14/21 08:39 Glucose (Glucose 10 Tabs/Tube) 4 - 8 tabs PO UD PRN; Protocol PRN Reason: Hypoglycemia Protocol Stop: 02/14/21 08:39 Glucose (Glucose 40% Gel 15 Gm Tube) 15 - 30 gm PO UD PRN; Protocol PRN Reason: Hypoglycemia Protocol Stop: 02/14/21 08:39 Insulin Aspart (Insulin Aspart 100 Units/Ml 3 Ml Pen) 0 units SC ACHS [facility] Stop: 02/14/21 08:39 Last Admin: 02/02/21 09:52 Dose: 11 units Documented by: Insulin Glargine (Insulin Glargine Solostar 100 Units/Ml 3 Ml Pen) 10 units SC HS [facility] Stop: 02/24/21 20:59 Last Admin: 02/01/21 20:37 Dose: 10 units Documented by: Insulin Glargine (Insulin Glargine Solostar 100 Units/Ml 3 Ml Pen) 10 units SC QAM [facility] Stop: 03/05/21 08:59 Loperamide HCl (Loperamide Hcl 2 Mg Cap) 2 mg PO Q4 PRN PRN Reason: Loose Stool Stop: 02/20/21 10:42 Last Admin: 01/21/21 18:08 Dose: 2 mg Documented by: Menthol (Cough Drop (Sugar Free) Checo 24 Checo/1 Box) 1 checo BUCCAL Q2H PRN PRN Reason: Sore Throat Stop: 02/17/21 20:48 Last Admin: 01/23/21 21:27 Dose: 1 checo Documented by: Miscellaneous (Carbohydrates For Hypoglycemia ) 15 - 30 gm PO UD PRN PRN Reason: Hypoglycemia Protocol Stop: 02/14/21 08:39 Miscellaneous Information (Pharmacist Discharge Med Rec Consult) 1 ea N/A UD PRN PRN Reason: Consult Stop: 02/23/21 20:49 Nitroglycerin (Nitroglycerin Sl 0.4 Mg/Tab Tab) 0.4 mg SL UD PRN PRN Reason: Chest Pain Stop: 02/14/21 08:39 Ondansetron HCl (Ondansetron Inj 2 Mg/Ml 2 Ml Vial) 4 mg IV Q6H PRN PRN Reason: Nausea Stop: 02/14/21 08:39 PG Care Time/CCT Total # of Minutes Spent Total Time Spent with Patient: Total time spent is greater than 50% in coordination of care (as documented) at patient's floor/unit and/or counseling patient: Coding Level of Care Code 66516 Subseq Hosp Care Lvl 2 Diagnoses Pneumonia due to COVID-19 virus U07.1; J12.82 CVA (cerebral vascular accident) I63.9 Hypoxia R09.02 Diabetes mellitus E11.9 Hypertension I10 Morbid obesity with BMI of 40.0-44.9, adult E66.01; Z68.41 Hypokalemia E87.6 Diarrhea R19.7
[2021-02-02] MEDS: ENOXAPARIN INJ 40 MG/0.4 ML SYR SQ SCH (21:59)
[2021-02-03] MEDS: FUROSEMIDE 40 MG TAB PO SCH ×2 (08:40→08:44)
[2021-02-03] MEDS: ATORVASTATIN 40 MG TAB PO SCH (08:40)
[2021-02-03] MEDS: CLOPIDOGREL BISULFATE 75 MG TAB PO SCH (08:41)
[2021-02-03] MEDS: FLUTICASONE PROPIONATE NA SPR 16 GM BTL SCH ×2 (08:41→21:19)
[2021-02-03] MEDS: INSULIN ASPART 100 UNITS/ML 3 ML PEN SC SCH ×4 (08:46→21:18)
[2021-02-03] MEDS: INSULIN GLARGINE SOLOSTAR 100 UNITS/ML 3 ML PEN SC SCH ×2 (08:47→21:17)
--- NOTE | 2021-02-03 08:57 | Hospitalist Progress Note ---
Date of Service February 03, 2021 Assessment & Plan (1) Pneumonia due to COVID-19 virus: Plan: Chest x-ray with bilateral airspace opacities and interstitial thickening suggestive of viral pneumonia With acute respiratory failure with hypoxia was on Vapotherm for over 2 weeks, never needed BIPAP was very slow to wean, finally today (02/03) he is down to wall high flow he is down to 10L which is encouraging, walked to bathroom without desaturating continue PT/OT wean oxygen, try to get home later this week Completed a 10-day course of dexamethasone 6 mg IV daily, CRP is only 1.5 when last checked Remdesivir IV daily, completed 5 days on 01/19 Azithromycin 500 mg IV daily, completed 7 days on 01/21 There was no role for tocilizumab Continue PRN duo nebs Continue to get out of bed and sitting up in chair -Continue flutter valve,incentive spirometer (great compliance, can pull in 2000-2500mL) laying prone at night, on his side as well continue Lasix 40mg PO daily (2) CVA (cerebral vascular accident): Plan: On the evening of 01/24, developed acute onset of right upper extremity weakness and right sided facial droop-stroke alert was called CT head with 6 mm left shelton radiata hyperdensity which could represent hemorrhage versus calcification, no old imaging to compare to Telestroke neurologist recommended holding Lovenox, no antiplatelets, repeat CT head the following day to reassess for hemorrhage Discussed with neurosurgeon-no role for intervention CT angiogram head and neck with left 65% LICA stenosis at the proximal cervical segment and right less than 50% stenosis of proximal right ICA. 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 once daily - atorvastatin 40 mg daily -Echocardiogram with mild RV dilation, but negative bubble study and normal otherwise get MRI brain this week once oxygen requirement is lower, could not do it while on high flow (3) Hypoxia: Plan: As above, secondary to Covid-19 pneumonia was thinking he might need LTACH if he could not come off high flow over the weekend however, he is down to 10L today!! continue to wean, Lasix daily (4) Diabetes mellitus: Plan: With significant hyperglycemia which then improved with increased doses of insulin, but then became hypoglycemic later in the evening on 01/24 Hypoglycemic again on the morning of 01/25 despite holding all insulin the evening before sugars better today increased Lantus to 10 am and 10 pm on 02/02 tightened Novolog coverage Hemoglobin A1c significantly uncontrolled at 9.3% He will need close follow-up with his PCP after discharge Holding home metformin and Jardiance while admitted, resume on discharge (5) Hypertension: Plan: permissive hypertension in the setting of TIA/CVA Continue to hold Norvasc and lisinopril, BP has been stable without them Lasix 40mg PO daily (6) Morbid obesity with BMI of 40.0-44.9, adult: Plan: BMI 40.4 Needs weight loss (7) Hypokalemia: Plan: 4.0 today (8) Diarrhea: Plan: With multiple episodes daily-likely secondary to Covid-19 and also was on azithromycin Azithromycin now completed C. difficile checked and was negative Diarrhea is now resolved Plan: Lovenox SQ Disposition- downgrade to medical floor PT/OT, were recommending rehab, he refuses to go try to get home later this week once he is on less oxygen Admission and Anticipated Discharge Date Admission Date: January 15, 2021 Subjective patient is so happy today, he is off Vapotherm, it has been over 2 weeks down to 15L initially, then down to 10L he was able to walk to the restroom with the help of the RN, first time he has used a real toilet in 2 weeks since he could not walk with high flow eating well, sugars are a little better will move to medical floor hope he will get stronger this week, maybe go home by the end of the week (he refuses rehab) Review of Systems Review of Systems: All systems reviewed & are unremarkable except as noted in Subjective Physical Exam Physical Exam: General: well developed, well nourished, obese male, comfortable Neck: supple, trachea midline, normal thyroid Lungs: lungs clear, normal effort, no accessory muscle use, no wheezing Heart: regular S1 and S2, no murmur, peripheral pulses normal, capillary refill normal, no edema Abdomen: soft, NT, ND, + BS, no hepatomegaly, normal to percussion Extremities: normal in appearance, no cyanosis, no petechiae, decreased strength right UE Neuro: awake, cooperative, moves all extremities, no focal motor deficits, CN II-XII intact, sensation in extremities intact, normal speech Skin: warm, dry, no rash, normal turgor Psych: Awake, alert oriented x 3, euthymic affect Results & Data Results & Data ([facility]) Vital Signs (Past 12 Hours) Vital Signs Temp Pulse Pulse Resp BP Pulse Ox 02/03/21 07:46 36.8 C 91 H 22 97/74 L 98 02/03/21 07:25 84 18 90 02/03/21 04:43 36.8 C 89 19 117/65 92 02/03/21 02:11 83 16 93 02/02/21 23:59 92 H 02/02/21 23:11 36.8 C 89 19 144/74 H 94 02/02/21 22:34 100 H 22 94 Laboratory Results Laboratory Results - last 24 hr 02/02/21 02/02/21 02/02/21 11:38 16:40 20:47 POC Glucose 326 H* 146 H 182 H 02/03/21 07:45 POC Glucose 169 H Medications Administered Current Inpatient Medications Acetaminophen (Acetaminophen 325 Mg Tab) 650 mg PO Q4H PRN PRN Reason: Pain or Fever Stop: 02/14/21 08:39 Last Admin: 01/25/21 13:35 Dose: 650 mg Documented by: Albuterol (Albuterol Hfa 8 Gm Inhaler) 2 puffs INH Q2R PRN PRN Reason: Shortness Of Breath Stop: 02/14/21 08:48 Last Admin: 01/21/21 07:37 Dose: 2 puffs Documented by: Albuterol (Albut/Ipratrop 3mg/0.5mg Neb 3 Ml Vial) 3 ml NEB Q2R PRN PRN Reason: Shortness Of Breath Or Wheezing Stop: 02/23/21 08:23 Atorvastatin Calcium (Atorvastatin 40 Mg Tab) 40 mg PO QAM [facility] Stop: 02/24/21 08:59 Last Admin: 02/03/21 08:40 Dose: 40 mg Documented by: Clopidogrel Bisulfate (Clopidogrel Bisulfate 75 Mg Tab) 75 mg PO QAM [facility] Stop: 02/24/21 13:59 Last Admin: 02/03/21 08:41 Dose: 75 mg Documented by: Dextrose (Dextrose 50% 50 Ml Syringe) 25 - 50 ml IV UD PRN; Protocol PRN Reason: Hypoglycemia Protocol Stop: 02/14/21 08:39 Last Admin: 01/24/21 22:36 Dose: 50 ml Documented by: Enoxaparin Sodium (Enoxaparin Inj 40 Mg/0.4 Ml Syr) 40 mg SQ HS [facility] Stop: 02/24/21 22:44 Last Admin: 02/02/21 21:59 Dose: 40 mg Documented by: Fluticasone Propionate (Fluticasone Propionate Na Spr 16 Gm Btl) 2 sprays NA BID [facility] Stop: 02/17/21 22:14 Last Admin: 02/03/21 08:41 Dose: 2 sprays Documented by: Furosemide (Furosemide 40 Mg Tab) 40 mg PO QAM [facility] Stop: 03/02/21 11:28 Last Admin: 02/03/21 08:44 Dose: Not Given Documented by: Glucagon (Glucagon For Inj 1 Mg Vial) 1 mg SQ UD PRN; Protocol PRN Reason: Hypoglycemia Protocol Stop: 02/14/21 08:39 Glucose (Glucose 10 Tabs/Tube) 4 - 8 tabs PO UD PRN; Protocol PRN Reason: Hypoglycemia Protocol Stop: 02/14/21 08:39 Glucose (Glucose 40% Gel 15 Gm Tube) 15 - 30 gm PO UD PRN; Protocol PRN Reason: Hypoglycemia Protocol Stop: 02/14/21 08:39 Insulin Aspart (Insulin Aspart 100 Units/Ml 3 Ml Pen) 0 units SC ACHS [facility] Stop: 02/14/21 08:39 Last Admin: 02/03/21 08:46 Dose: 7 units Documented by: Insulin Glargine (Insulin Glargine Solostar 100 Units/Ml 3 Ml Pen) 10 units SC HS [facility] Stop: 02/24/21 20:59 Last Admin: 02/02/21 21:30 Dose: 10 units Documented by: Insulin Glargine (Insulin Glargine Solostar 100 Units/Ml 3 Ml Pen) 10 units SC QAM [facility] Stop: 03/05/21 08:59 Last Admin: 02/03/21 08:47 Dose: 10 units Documented by: Loperamide HCl (Loperamide Hcl 2 Mg Cap) 2 mg PO Q4 PRN PRN Reason: Loose Stool Stop: 02/20/21 10:42 Last Admin: 01/21/21 18:08 Dose: 2 mg Documented by: Menthol (Cough Drop (Sugar Free) Checo 24 Checo/1 Box) 1 checo BUCCAL Q2H PRN PRN Reason: Sore Throat Stop: 02/17/21 20:48 Last Admin: 01/23/21 21:27 Dose: 1 checo Documented by: Miscellaneous (Carbohydrates For Hypoglycemia ) 15 - 30 gm PO UD PRN PRN Reason: Hypoglycemia Protocol Stop: 02/14/21 08:39 Miscellaneous Information (Pharmacist Discharge Med Rec Consult) 1 ea N/A UD PRN PRN Reason: Consult Stop: 02/23/21 20:49 Nitroglycerin (Nitroglycerin Sl 0.4 Mg/Tab Tab) 0.4 mg SL UD PRN PRN Reason: Chest Pain Stop: 02/14/21 08:39 Ondansetron HCl (Ondansetron Inj 2 Mg/Ml 2 Ml Vial) 4 mg IV Q6H PRN PRN Reason: Nausea Stop: 02/14/21 08:39 PG Care Time/CCT Total # of Minutes Spent Total Time Spent with Patient: Total time spent is greater than 50% in coordination of care (as documented) at patient's floor/unit and/or counseling patient: Coding Level of Care Code 58456 Subseq Hosp Care Lvl 3 Diagnoses Pneumonia due to COVID-19 virus U07.1; J12.82 CVA (cerebral vascular accident) I63.9 Hypoxia R09.02 Diabetes mellitus E11.9 Hypertension I10 Morbid obesity with BMI of 40.0-44.9, adult E66.01; Z68.41 Hypokalemia E87.6 Diarrhea R19.7
[2021-02-03 10:05] LABS: Calcium 9.3 mg/dl (8.5-10.1); Creatinine Clr Calc Pharmacy 122.2 ml/min; Est GFR (Non-African American) 95.7 ml/min
[2021-02-03] MEDS: ENOXAPARIN INJ 40 MG/0.4 ML SYR SQ SCH (21:16)
[2021-02-04] MEDS: ACETAMINOPHEN 325 MG TAB PO PRN (01:53)
[2021-02-04] MEDS: FUROSEMIDE 40 MG TAB PO SCH (08:30)
[2021-02-04] MEDS: ATORVASTATIN 40 MG TAB PO SCH (08:30)
[2021-02-04] MEDS: FLUTICASONE PROPIONATE NA SPR 16 GM BTL SCH ×2 (08:30→21:50)
[2021-02-04] MEDS: CLOPIDOGREL BISULFATE 75 MG TAB PO SCH (08:30)
[2021-02-04] MEDS: INSULIN ASPART 100 UNITS/ML 3 ML PEN SC SCH ×4 (09:27→21:48)
[2021-02-04] MEDS: INSULIN GLARGINE SOLOSTAR 100 UNITS/ML 3 ML PEN SC SCH ×2 (09:28→21:59)
--- NOTE | 2021-02-04 17:09 | Hospitalist Progress Note ---
Date of Service February 04, 2021 Assessment & Plan (1) Pneumonia due to COVID-19 virus: Plan: Chest x-ray with bilateral airspace opacities and interstitial thickening suggestive of viral pneumonia With acute respiratory failure with hypoxia was on Vapotherm for over 2 weeks, never needed BIPAP was very slow to wean, weaned to wall high flow 02/03 02/04 continuing on 10 L high flow, afternoon SPO2 greater than 90% on 6 L nasal cannula Continue PT OT Completed a 10-day course of dexamethasone 6 mg IV daily, CRP is only 1.5 when last checked Remdesivir IV daily, completed 5 days on 01/19 Azithromycin 500 mg IV daily, completed 7 days on 01/21 Tocilizumab was not indicated Continue PRN duo nebs Continue ambulating and sitting in chair as needed -Continue flutter valve,incentive spirometer (great compliance, can pull in 2000-2500mL) -Continue laying prone at night, on his side as well -Continue Lasix 40mg PO daily (2) CVA (cerebral vascular accident): Plan: On the evening of 01/24, developed acute onset of right upper extremity weakness and right sided facial droop-stroke alert was called CT head with 6 mm left shelton radiata hyperdensity which could represent hemorrhage versus calcification, no old imaging to compare to Telestroke neurologist recommended holding Lovenox, no antiplatelets, repeat CT head the following day to reassess for hemorrhage Discussed with neurosurgeon-no role for intervention CT angiogram head and neck with left 65% LICA stenosis at the proximal cervical segment and right less than 50% stenosis of proximal right ICA. 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 once daily - atorvastatin 40 mg daily -Echocardiogram with mild RV dilation, but negative bubble study and normal otherwise get MRI brain this week once oxygen requirement is lower, could not do it while on high flow, patient tolerating 6 L nasal cannula / anticipate may be able to get 10/5 (3) Hypoxia: Plan: As above, secondary to Covid-19 pneumonia Rapidly improving in the last 48 hours continue to wean, Lasix daily (4) Diabetes mellitus: Plan: With significant hyperglycemia which then improved with increased doses of insulin, but then became hypoglycemic later in the evening on 01/24 Hypoglycemic again on the morning of 01/25 despite holding all insulin the e vening before sugars better today increased Lantus to 10 am and 10 pm on 02/02 tightened Novolog coverage Hemoglobin A1c significantly uncontrolled at 9.3% He will need close follow-up with his PCP after discharge Holding home metformin and Jardiance while admitted, resume on discharge (5) Hypertension: Plan: permissive hypertension in the setting of TIA/CVA Continue to hold Norvasc and lisinopril, BP has been stable without them Lasix 40mg PO daily (6) Morbid obesity with BMI of 40.0-44.9, adult: Plan: BMI 40.4 Needs weight loss (7) Hypokalemia: Plan: 4.0 today (8) Diarrhea: Plan: With multiple episodes daily-likely secondary to Covid-19 and also was on azithromycin Azithromycin course completed C. difficile checked and was negative Diarrhea is now resolved Plan: Lovenox SQ Disposition- downgrade to medical floor PT/OT, were recommending rehab, he refuses to go try to get home later this week once he is on less oxygen Admission and Anticipated Discharge Date Admission Date: January 15, 2021 Ryan Valdiviann is extremely happy that he is feeling improved today. He is coming down on high flow nasal cannula at time of visit. Previously had extended Vapotherm requirement with slow weaning. 10 L this morning, successfully weaned to 6 L nasal cannula in the afternoon. Denies shortness of breath at rest, endorses shortness of breath with exertion. No chest pain, chest pressure, fevers, chills, nausea, vomiting today. No questions or concerns, expresses happiness at coming down his oxygen requirements. Review of Systems Review of Systems: 10 point review of systems negative except as noted in HPI Physical Exam Physical Exam: General: A&Ox3. NAD. Cooperative. HEENT: Atraumatic, normocephalic. Visual acuity and hearing grossly intact. Cranial nerves II through XII grossly intact. Pulm: CTAB A&P. -wheezes, -rales, -rhonchi. Symmetrical chest rise. No increase work of breathing. No respiratory distress. Cardiac: RRR, -mrg. Radial pulses intact and symmetrical. Abdominal: Nontender, nondistended, soft. BS present. Extremities: Moving all extremities equally, extremities warm and dry. Sensation to soft touch intact in hands and feet bilaterally. Results & Data Results & Data ([facility]) Vital Signs (Past 12 Hours) Vital Signs Temp Pulse Resp BP Pulse Ox 02/04/21 15:38 37.4 C 87 18 134/66 91 02/04/21 13:44 94 02/04/21 11:53 93 02/04/21 07:10 36.6 C 79 18 114/53 L 97 PG Care Time/CCT Total # of Minutes Spent Total Time Spent with Patient: Total time spent is greater than 50% in coordination of care (as documented) at patient's floor/unit and/or counseling patient: Coding Level of Care Code 58123 Subseq Hosp Care Lvl 2 Diagnoses Pneumonia due to COVID-19 virus U07.1; J12.82 CVA (cerebral vascular accident) I63.9 Hypoxia R09.02 Diabetes mellitus E11.9 Hypertension I10 Morbid obesity with BMI of 40.0-44.9, adult E66.01; Z68.41 Hypokalemia E87.6 Diarrhea R19.7
[2021-02-04] MEDS: ENOXAPARIN INJ 40 MG/0.4 ML SYR SQ SCH (21:49)
[2021-02-05] MEDS: ACETAMINOPHEN 325 MG TAB PO PRN (02:26)
[2021-02-05] MEDS: FUROSEMIDE 40 MG TAB PO SCH (07:44)
[2021-02-05] MEDS: ATORVASTATIN 40 MG TAB PO SCH (07:44)
[2021-02-05] MEDS: CLOPIDOGREL BISULFATE 75 MG TAB PO SCH (07:44)
[2021-02-05] MEDS: FLUTICASONE PROPIONATE NA SPR 16 GM BTL SCH ×2 (07:45→21:04)
[2021-02-05] MEDS: INSULIN ASPART 100 UNITS/ML 3 ML PEN SC SCH ×4 (08:47→21:40)
[2021-02-05] MEDS: INSULIN GLARGINE SOLOSTAR 100 UNITS/ML 3 ML PEN SC SCH ×2 (08:48→21:41)
--- NOTE | 2021-02-05 16:48 | Hospitalist Progress Note ---
Date of Service February 05, 2021 Assessment & Plan (1) Pneumonia due to COVID-19 virus: Plan: Chest x-ray with bilateral airspace opacities and interstitial thickening suggestive of viral pneumonia With acute respiratory failure with hypoxia was on Vapotherm for over 2 weeks, never needed BIPAP was very slow to wean, weaned to wall high flow 02/03 Completed a 10-day course of dexamethasone 6 mg IV daily, CRP is only 1.5 when last checked Remdesivir IV daily, completed 5 days on 01/19 Azithromycin 500 mg IV daily, completed 7 days on 01/21 Tocilizumab was not indicated Continue PRN duo nebs Continue ambulating and sitting in chair as needed -Continue flutter valve,incentive spirometer (great compliance, can pull in 2000-2500mL) -Continue laying prone at night, on his side as well -Continue Lasix 40mg PO daily -> Very much wants to go home, but 2-step on 02/05 failed as the patient desaturated despite 9L NC and could not complete test. (2) CVA (cerebral vascular accident): Plan: On the evening of 01/24, developed acute onset of right upper extremity weakness and right sided facial droop-stroke alert was called CT head with 6 mm left shelton radiata hyperdensity which could represent hemorrhage versus calcification, no old imaging to compare to Telestroke neurologist recommended holding Lovenox, no antiplatelets, repeat CT head the following day to reassess for hemorrhage Discussed with neurosurgeon-no role for intervention CT angiogram head and neck with left 65% LICA stenosis at the proximal cervical segment and right less than 50% stenosis of proximal right ICA. 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 once daily - atorvastatin 40 mg daily -Echocardiogram with mild RV dilation, but negative bubble study and normal otherwise - Stable now for MRI. Ordered. (3) Hypoxia: Plan: As above, secondary to Covid-19 pneumonia Rapidly improving in the last 48 hours continue to wean, Lasix daily (4) Diabetes mellitus: Plan: With significant hyperglycemia which then improved with increased doses of insulin, but then became hypoglycemic later in the evening on 01/24 Hypoglycemic again on the morning of 01/25 despite holding all insulin the evening before increased Lantus to 10 am and 10 pm on 02/02 tightened Novolog coverage Hemoglobin A1c significantly uncontrolled at 9.3% He will need close follow-up with his PCP after discharge Holding home metformin and Jardiance while admitted, resume on discharge -> Sugars 120 - 200 in last 24 hours. (5) Hypertension: Plan: BP is 125/70 today. - Continue to hold Norvasc and lisinopril, BP has been stable without them Lasix 40mg PO daily (6) Morbid obesity with BMI of 40.0-44.9, adult: Plan: BMI 40.4 Needs weight loss (7) Hypokalemia: Plan: 4.0 today (8) Diarrhea: Plan: With multiple episodes daily-likely secondary to Covid-19 and also was on azithromycin Azithromycin course completed C. difficile checked and was negative Diarrhea is now resolved Plan: Lovenox SQ Disposition- downgrade to medical floor PT/OT, were recommending rehab, he refuses to go try to get home later this week once he is on less oxygen Admission and Anticipated Discharge Date Admission Date: January 15, 2021 Subjective Lonely today. Would like to see his . Reports no fevers/chills, chest pain, shortness of breath, abdominal pain, nausea, or vomiting. Physical Exam Constitutional: WD/WN, vitals as above Eyes: EOM intact bilaterally; no conjunctival abnormality ENMT: external ear and nose normal, oropharynx normal Neck: trachea midline, no thyromegaly normal visual inspection Respiratory: normal respiratory effort, lungs clear to auscultation no respiratory distress Cardiovascular: RRR, no murmur, no edema Gastrointestinal (Abdomen): Inspection/Auscultation: abdomen normal to inspection; abdomen not distended Musculoskeletal: no cyanosis or clubbing, extremities motor strength 5/5 Skin: no rashes, warm and dry Neurologic: moves all extremities and awake Psychiatric: Orientation: alert, oriented to person and cooperative Mood: + depressed mood Results & Data Results & Data ([facility]) Vital Signs (Past 12 Hours) Vital Signs Temp Pulse Resp BP Pulse Ox 02/05/21 15:30 36.7 C 85 16 125/72 94 02/05/21 07:03 36.6 C 83 16 102/63 90 PG Care Time/CCT Total # of Minutes Spent Total Time Spent with Patient: Total time spent is greater than 50% in coordination of care (as documented) at patient's floor/unit and/or counseling patient: Coding Level of Care Code 11557 Subseq Hosp Care Lvl 2 Diagnoses Pneumonia due to COVID-19 virus U07.1; J12.82 CVA (cerebral vascular accident) I63.9 Hypoxia R09.02 Diabetes mellitus E11.9 Hypertension I10 Morbid obesity with BMI of 40.0-44.9, adult E66.01; Z68.41 Hypokalemia E87.6 Diarrhea R19.7
--- NOTE | 2021-02-05 20:11 | Magnetic Resonance Report ---
MR brain wo con INDICATION: Stroke like symptoms, Covid pneumonia. Right-sided weakness and facial droop, some speech difficulty. TECHNIQUE: Multiplanar and multisequence MR images of the brain were obtained without intravenous con trast. Comparison: None available at the time of this dictation. FINDINGS: There is a tiny focus of restricted diffusion in the left periventricular white matter with associate d edema noted on T2 imaging. Foci of T2 and FLAIR hyperintensity are noted in the paraventricular are as consistent with chronic small vessel ischemic disease. There is no evidence of acute intraparenchy mal hemorrhage. No extra axial fluid collections are seen. There is minimal rightward midline shift o f approximately 2 mm. Ex vacuo ventriculomegaly and sulcal enlargement is noted compatible with diffu se encephalomalacia. The corpus callosum, pituitary gland, and cerebellar tonsils appear grossly unre markable. Flow voids of the major intracranial arterial vessels are identified. The imaged portions of the para nasal sinuses, mastoid air cells, and orbits are unremarkable. IMPRESSION: Tiny acute infarct in the left periventricular white matter. Possible minimal rightward midline shift . ACT 112: Negative or not required by law. Electronically signed by: Dimitris Marinelli M.D. 02/05/2021 8:09 PM
[2021-02-05] MEDS: COUGH DROP (SUGAR FREE) LOZ 24 LOZ/1 BOX BUCCAL PRN (21:04)
[2021-02-06] MEDS: ACETAMINOPHEN 325 MG TAB PO PRN (04:15)
[2021-02-06 07:21] LABS: Hematocrit (blood only) 39.2 % (42-52); Hemoglobin 12.9 g/dL (14.0-18.0); Mean Corpuscular Hemoglobin 28.7 pg (25-34); Mean Corpuscular Hgb Conc 32.9 g/dL (32-36); Mean Corpuscular Volume 87.1 fL (80-100); Mean Platelet Volume 9.5 fL (7.4-10.4); Platelet Count 186 K/uL (130-400); RDW Coefficient of Variation 13.4 % (11.5-14.5); RDW Standard Deviation 42.5 fL (36.4-46.3)
[2021-02-06 07:51] LABS: BUN Creatinine Ratio 23.2 (10-20); Calcium 8.9 mg/dl (8.5-10.1); Creatinine Clr Calc Pharmacy 132.7 ml/min; Est GFR (African American) 114.8 ml/min; Magnesium 2.3 mg/dl (1.8-2.4); Potassium 4.2 mmol/L (3.5-5.1)
[2021-02-06] MEDS: FUROSEMIDE 40 MG TAB PO SCH (07:52)
[2021-02-06] MEDS: CLOPIDOGREL BISULFATE 75 MG TAB PO SCH (07:53)
[2021-02-06] MEDS: ATORVASTATIN 40 MG TAB PO SCH (07:54)
[2021-02-06] MEDS: INSULIN ASPART 100 UNITS/ML 3 ML PEN SC SCH ×4 (09:31→21:10)
[2021-02-06] MEDS: INSULIN GLARGINE SOLOSTAR 100 UNITS/ML 3 ML PEN SC SCH ×2 (11:04→21:10)
[2021-02-06] MEDS: FLUTICASONE PROPIONATE NA SPR 16 GM BTL SCH ×2 (11:05→21:12)
[2021-02-06] MEDS: ENOXAPARIN INJ 40 MG/0.4 ML SYR SQ SCH (21:11)
--- NOTE | 2021-02-06 21:45 | Hospitalist Progress Note ---
Date of Service February 06, 2021 Assessment & Plan (1) Pneumonia due to COVID-19 virus: Plan: Severe. Peak HFNC requirement was 40 L. He was on HFNC at large settings for 2+ weeks. Weaned to "wall-mounted" high-flow on 02/03/21. Completed a 10-day course of dexamethasone 6 mg daily. Remdesivir course completed 01/19. Azithromycin course completed on 01/21. Tocilizumab was not indicated. 2-step on 02/05 -- failed as the patient desaturated despite 9L NC and could not complete test. Not safe for d/c home at this time. Cont pulmonary toilet, self-proning, etc. Last CRP 1.5. Peak 7.7. Wean NC O2 as tolerated. (2) Acute respiratory failure with hypoxia: Plan: 2nd #1 - slowly improving (3) CVA (cerebral vascular accident): Plan: MRI-confirmed L periventricular stroke. However, right-sided weakness (arm/hand) IMPROVING. Course -- On the evening of 01/24/21 developed acute onset of right upper extremity weakness and right sided facial droop. Stroke alert was called. CT head with 6 mm left shelton radiata hyperdensity (hemorrhage versus calcification, no old imaging to compare to). Telestroke neurologist recommended holding Lovenox, no antiplatelets, repeat CT head the following day to reassess for hemorrhage. Discussed with neurosurgeon -no role for intervention. CT angiogram head and neck with left 65% LICA stenosis at the proximal cervical segment and right less than 50% stenosis of proximal right ICA. 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 acute hemorrhagic focus considered unlikely Repeat CT head 01/25 negative for hemorrhage. Echo w/o thrombus or shunt/PFO. Remains on Plavix 75 mg p.o. once daily for secondary stroke prevention. Remains on lipitor 40mg daily. Cause of stroke - enhanced thrombotic risk from COVID-19 infection in the setting of other stroke risk factors including HTN, T2DM, obesity, abnormal lipids (low HDL, etc). Post-d/c will advise 30-day event monitor to r/o PAF as cause of CVA. (4) Diabetes mellitus: Plan: Uncontrolled. Hemoglobin A1c 9.3% Holding home metformin and Jardiance while admitted, resume on discharge Cont lantus Cont novolog - will adjust (5) Hypertension: Plan: BPs controlled OFF of his usual NICOLLE & juancarlosvasterrence Remains on lasix to keep negative fluid balance Follow (6) Morbid obesity with BMI of 40.0-44.9, adult: Plan: BMI 40 much of his stay (7) Hypokalemia: Plan: resolved (8) Diarrhea: Plan: resolved likely abx-associated and/or due to COVID itself (9) DVT prophylaxis: Plan: lovenox - high risk of DVT due to COVID, prolonged hospitalization, recent CVA, etc. if he continues to refuse then place on xarelto 10mg once daily Plan: updated pt's Liliam by phone this evening Admission and Anticipated Discharge Date Admission Date: January 15, 2021 Subjective patient resting comfortably during the visit he reports he continues to do pulmonary toilet with incentive, etc he has mild cough he is eating fair-good right hand weakness has improved nicely during the stay we discussed his MRI brain from yesterday confirming his recent stroke denies any right leg weakness following my visit nursing reported that he had been refusing his lovenox injection Review of Systems Review of Systems: gen - no fevers or chills GI - no N/V/D - voiding fine CV - no chest pain, no orthopnea Pulm - mild SALAS Physical Exam Physical Exam: Gen: obese, NAD, no distress HEENT: ?mild right lower facial droop; MMM Neck: no JVD Heart: RRR, s1 s2 Lungs: bibasilar rales, no increased work of breathing Abd: soft NT ND BS+ Ext: no edema Neuro: handgrips - 5/5 L, near 5/5 on R; rapid alternating movements on R hand a little slower than L hand; b/l arm flexion/extension near 5/5 on R, 5/5 on L; b/l leg strength 5/5 Psych: a/o x 3 Results & Data Results & Data ([facility]) Vital Signs (Past 12 Hours) Vital Signs Temp Pulse Resp BP Pulse Ox 02/06/21 15:57 37.1 C 92 H 16 106/62 93 Laboratory Results Laboratory Results - last 24 hr 02/06/21 02/06/21 02/06/21 06:46 06:46 08:30 WBC 7.50 RBC 4.50 L Hgb 12.9 L Hct 39.2 L MCV 87.1 MCH 28.7 MCHC 32.9 RDW Std Deviation 42.5 RDW Coeff of Carmela 13.4 Plt Count 186 MPV 9.5 Sodium 140 Potassium 4.2 Chloride 103 Carbon Dioxide 32 Anion Gap 5.0 BUN 16 Creatinine 0.70 Est Cr Clr Drug Dosing 132.7 Est GFR ( Amer) 114.8 Est GFR (Non-Af Amer) 99.0 BUN/Creatinine Ratio 23.2 H Glucose 148 H POC Glucose 155 H Calcium 8.9 Magnesium 2.3 02/06/21 02/06/21 02/06/21 11:52 17:23 20:38 WBC RBC Hgb Hct MCV MCH MCHC RDW Std Deviation RDW Coeff of Carmela Plt Count MPV Sodium Potassium Chloride Carbon Dioxide Anion Gap BUN Creatinine Est Cr Clr Drug Dosing Est GFR ( Amer) Est GFR (Non-Af Amer) BUN/Creatinine Ratio Glucose POC Glucose 212 H 218 H 224 H Calcium Magnesium PG Care Time/CCT Total # of Minutes Spent Total Time Spent with Patient: Total time spent is greater than 50% in coordination of care (as documented) at patient's floor/unit and/or counseling patient: Coding Level of Care Code 05845 Subseq Hosp Care Lvl 3 Diagnoses Pneumonia due to COVID-19 virus U07.1; J12.82 CVA (cerebral vascular accident) I63.9 Diabetes mellitus E11.9 Hypertension I10 Morbid obesity with BMI of 40.0-44.9, adult E66.01; Z68.41 Hypokalemia E87.6 Diarrhea R19.7 Acute respiratory failure with hypoxia J96.01 DVT prophylaxis Z29.9
[2021-02-07] MEDS: ACETAMINOPHEN 325 MG TAB PO PRN (09:21)
[2021-02-07] MEDS: FLUTICASONE PROPIONATE NA SPR 16 GM BTL SCH ×2 (09:22→21:07)
[2021-02-07] MEDS: ATORVASTATIN 40 MG TAB PO SCH (09:22)
[2021-02-07] MEDS: FUROSEMIDE 40 MG TAB PO SCH (09:22)
[2021-02-07] MEDS: CLOPIDOGREL BISULFATE 75 MG TAB PO SCH (09:22)
[2021-02-07] MEDS: INSULIN GLARGINE SOLOSTAR 100 UNITS/ML 3 ML PEN SC SCH ×2 (09:26→21:07)
[2021-02-07] MEDS: INSULIN ASPART 100 UNITS/ML 3 ML PEN SC SCH ×4 (09:26→21:06)
[2021-02-07] MEDS: ENOXAPARIN INJ 40 MG/0.4 ML SYR SQ SCH (20:35)
--- NOTE | 2021-02-07 21:16 | Hospitalist Progress Note ---
Date of Service February 07, 2021 Assessment & Plan (1) Pneumonia due to COVID-19 virus: Plan: Severe but has made excellent improvement since admission. Peak HFNC requirement was 40 L. He was on HFNC at large settings for 2+ weeks. Weaned to "wall-mounted" high-flow on 02/03/21. Down to 6 L now. Minimal respiratory symptoms today. Completed a 10-day course of dexamethasone 6 mg daily. Remdesivir course completed 01/19. Azithromycin course completed on 01/21. Tocilizumab was not indicated. 2-step on 02/05 -- failed as the patient desaturated despite 9L NC and could not complete test. Not safe for d/c home at this time. Cont pulmonary toilet, self-proning, etc. Last CRP 1.5. Peak 7.7. Wean NC O2 as tolerated. (2) Acute respiratory failure with hypoxia: Plan: 2nd #1 - slowly improving (3) CVA (cerebral vascular accident): Plan: MRI-confirmed L periventricular stroke. However, right-sided weakness (arm/hand) IMPROVING/near normal today. Course -- On the evening of 01/24/21 developed acute onset of right upper extremity weakness and right sided facial droop. Stroke alert was called. CT head with 6 mm left shelton radiata hyperdensity (hemorrhage versus calcification, no old imaging to compare to). Telestroke neurologist recommended holding Lovenox, no antiplatelets, repeat CT head the following day to reassess for hemorrhage. Discussed with neurosurgeon -no role for intervention. CT angiogram head and neck with left 65% LICA stenosis at the proximal cervical segment and right less than 50% stenosis of proximal right ICA. 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 acute hemorrhagic focus considered unlikely Repeat CT head 01/25 negative for hemorrhage. Echo w/o thrombus or shunt/PFO. Remains on Plavix 75 mg p.o. once daily for secondary stroke prevention. Remains on lipitor 40mg daily. Cause of stroke - enhanced thrombotic risk from COVID-19 infection in the setting of other stroke risk factors including HTN, T2DM, obesity, abnormal lipids (low HDL, etc). Post-d/c will advise 30-day event monitor to r/o PAF as cause of CVA. (4) Diabetes mellitus: Plan: Uncontrolled. Hemoglobin A1c 9.3% Holding home metformin and Jardiance while admitted, resume on discharge May need lantus once daily Cont lantus but increase HS dose to 15 units Cont novolog - will adjust (5) Hypertension: Plan: BPs controlled OFF of his usual NICOLLE & norvasc Remains on lasix to keep negative fluid balance (40mg daily) (6) Morbid obesity with BMI of 40.0-44.9, adult: Plan: BMI 40 much of his stay now 38 (7) Hypokalemia: Plan: resolved (8) Diarrhea: Plan: resolved likely abx-associated and/or due to COVID itself (9) DVT prophylaxis: Plan: lovenox - high risk of DVT due to COVID, prolonged hospitalization, recent CVA, etc. if he continues to refuse then place on xarelto 10mg once daily Plan: updated pt's Liliam by phone once again this evening Admission and Anticipated Discharge Date Admission Date: January 15, 2021 Subjective patient in chair eating lunch robust appetite he states "I feel really good today" minimal SALAS no cough no chest pain right hand weakness doing much better Review of Systems Review of Systems: gen - no fevers/chills CV - no orthopnea pulm - no dyspnea at rest GI - no N/V/D/constipation Physical Exam Physical Exam: Gen: obese, NAD, no distress; looks great today; sitting in chair HEENT: MMM Neck: no JVD Heart: tachy (low 100s), s1 s2, irregular (extra beats? a.fib?) Lungs: bibasilar rales - improved from yesterday's exam; no increased work of breathing Abd: soft NT ND BS+ Ext: no edema Neuro: handgrips - R is 5/5 today, improved from yesterday; b/l arm flexion/extension near 5/5 on R, 5/5 on L; no dysarthria; no aphasia Psych: a/o x 3 Results & Data Results & Data ([facility]) Vital Signs (Past 12 Hours) Vital Signs Temp Pulse Resp BP Pulse Ox 02/07/21 15:30 37.1 C 83 18 105/62 94 Laboratory Results Laboratory Results - last 24 hr 02/07/21 02/07/21 02/07/21 08:28 12:38 17:26 POC Glucose 203 H 237 H 116 H 02/07/21 20:46 POC Glucose 204 H PG Care Time/CCT Total # of Minutes Spent Total Time Spent with Patient: Total time spent is greater than 50% in coordination of care (as documented) at patient's floor/unit and/or counseling patient: Coding Level of Care Code 29743 Subseq Hosp Care Lvl 2 Diagnoses Pneumonia due to COVID-19 virus U07.1; J12.82 Acute respiratory failure with hypoxia J96.01 CVA (cerebral vascular accident) I63.9 Diabetes mellitus E11.9 Hypertension I10 Morbid obesity with BMI of 40.0-44.9, adult E66.01; Z68.41 Hypokalemia E87.6 Diarrhea R19.7 DVT prophylaxis Z29.9
[2021-02-08] MEDS: CLOPIDOGREL BISULFATE 75 MG TAB PO SCH (08:33)
[2021-02-08] MEDS: FUROSEMIDE 40 MG TAB PO SCH (08:34)
[2021-02-08] MEDS: FLUTICASONE PROPIONATE NA SPR 16 GM BTL SCH ×2 (08:34→20:37)
[2021-02-08] MEDS: ATORVASTATIN 40 MG TAB PO SCH (08:34)
[2021-02-08] MEDS: ACETAMINOPHEN 325 MG TAB PO PRN (08:34)
[2021-02-08] MEDS: INSULIN GLARGINE SOLOSTAR 100 UNITS/ML 3 ML PEN SC SCH ×2 (09:19→20:38)
[2021-02-08] MEDS: INSULIN ASPART 100 UNITS/ML 3 ML PEN SC SCH ×4 (09:19→20:37)
[2021-02-08] MEDS: RIVAROXABAN 10 MG TABLET PO SCH (09:27)
--- NOTE | 2021-02-08 17:30 | Electrocardiogram Report ---
Test Reason : Blood Pressure : / mmHG Vent. Rate : 109 BPM Atrial Rate : 109 BPM P-R Int : 210 ms QRS Dur : 070 ms QT Int : 320 ms P-R-T Axes : 054 007 056 degrees QTc Int : 430 ms Sinus tachycardia with 1st degree A-V block with frequent Premature ventricular complexes Possible Inferior infarct , age undetermined Abnormal ECG When compared with ECG of 15-JAN-2021 01:04, Premature ventricular complexes are now Present TX interval has increased Questionable change in QRS duration Borderline criteria for Inferior infarct are now Present Confirmed by Hernan Sweeney ([id number]) on 02/08/2021 5:30:19 PM Referred By: REFERRED SELF Confirmed By:Carlos Sweeney
--- NOTE | 2021-02-08 20:51 | Hospitalist Progress Note ---
Date of Service February 08, 2021 Assessment & Plan (1) Pneumonia due to COVID-19 virus: Plan: Severe - has made excellent improvement since admission. Peak HFNC requirement was 40 L. He was on HFNC at large settings for 2+ weeks. Weaned to "wall-mounted" high-flow on 02/03/21. Down to 3 L now at rest. Minimal respiratory symptoms. Completed a 10-day course of dexamethasone 6 mg daily. Remdesivir course completed 01/19. Azithromycin course completed on 01/21. Tocilizumab was not indicated. 2-step on 02/05 -- failed as the patient desaturated despite 9L NC and could not complete test. Will repeat the 2-step tomorrow AM. Cont pulmonary toilet, etc Last CRP 1.5. Peak 7.7. routine labs in am. (2) Acute respiratory failure with hypoxia: Plan: 2nd #1 - slowly improving (3) CVA (cerebral vascular accident): Plan: MRI-confirmed L periventricular stroke. However, right-sided weakness (arm/hand) IMPROVING/near normal today. Course -- On the evening of 01/24/21 developed acute onset of right upper extremity weakness and right sided facial droop. Stroke alert was called. CT head with 6 mm left shelton radiata hyperdensity (hemorrhage versus calcification, no old imaging to compare to). Telestroke neurologist recommended holding Lovenox, no antiplatelets, repeat CT head the following day to reassess for hemorrhage. CT angiogram head and neck with left 65% LICA stenosis at the proximal cervical segment and right less than 50% stenosis of proximal right ICA. 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 Repeat CT head 01/25 negative for hemorrhage. Echo w/o thrombus or shunt/PFO. Remains on Plavix 75 mg p.o. once daily for secondary stroke prevention. Remains on lipitor 40mg daily. Cause of stroke - enhanced thrombotic risk from COVID-19 infection in the setting of other stroke risk factors including HTN, T2DM, obesity, abnormal lipids (low HDL, etc). Post-d/c will advise 30-day event monitor to r/o PAF as cause of CVA. (4) Diabetes mellitus: Plan: Uncontrolled. Hemoglobin A1c 9.3% Holding home metformin and Jardiance while admitted, resume on discharge May need lantus once daily Cont lantus BID Cont novolog (5) Hypertension: Plan: BPs controlled OFF of his usual NICOLLE & norvasc Remains on lasix to keep negative fluid balance (40mg daily) (6) Morbid obesity with BMI of 40.0-44.9, adult: Plan: BMI 40 much of his stay now 38 (7) Hypokalemia: Plan: resolved (8) Diarrhea: Plan: resolved likely abx-associated and/or due to COVID itself (9) DVT prophylaxis: Plan: patient has continued to refuse his lovenox thus, change to xarelto 10mg daily plan 30 days of xarelto post-d/c for DVT proph Plan: updated pt's Liliam by phone once again this evening Admission and Anticipated Discharge Date Admission Date: January 15, 2021 Subjective having a really good day he states feeling well hasn't coughed in several days mild SALAS only - no change eating well down to 3 L NC O2 at rest sleeping fair Review of Systems Review of Systems: gen - no fevers or chills CV - no chest pain or pleuritic pain GI - no N/V/D Physical Exam Physical Exam: Gen: obese, NAD, no distress HEENT: MMM Neck: no JVD Heart: tachy (low 100s) - no change, s1 s2, irregular Lungs: bibasilar rales - improved from yesterday's exam; no increased work of breathing Abd: soft NT ND BS+ Ext: no edema Neuro: handgrip R near 5/5; L 5/5 Psych: a/o x 3 Results & Data Results & Data ([facility]) Vital Signs (Past 12 Hours) Vital Signs Temp Pulse Resp BP Pulse Ox 02/08/21 14:28 36.6 C 81 18 118/71 94 02/08/21 12:29 93 02/08/21 10:53 94 02/08/21 10:20 95 02/08/21 09:30 96 Laboratory Results Laboratory Results - last 24 hr 02/08/21 02/08/21 02/08/21 08:25 12:20 17:16 POC Glucose 159 H 240 H 123 H 02/08/21 20:34 POC Glucose 195 H PG Care Time/CCT Total # of Minutes Spent Total Time Spent with Patient: Total time spent is greater than 50% in coordination of care (as documented) at patient's floor/unit and/or counseling patient: Coding Level of Care Code 19235 Subseq Hosp Care Lvl 2 Diagnoses Pneumonia due to COVID-19 virus U07.1; J12.82 Acute respiratory failure with hypoxia J96.01 CVA (cerebral vascular accident) I63.9 Diabetes mellitus E11.9 Hypertension I10 Morbid obesity with BMI of 40.0-44.9, adult E66.01; Z68.41 Hypokalemia E87.6 Diarrhea R19.7 DVT prophylaxis Z29.9
[2021-02-09] MEDS: ACETAMINOPHEN 325 MG TAB PO PRN (07:38)
[2021-02-09 08:21] LABS: BUN Creatinine Ratio 24.3 (10-20); Calcium 8.9 mg/dl (8.5-10.1); Creatinine Clr Calc Pharmacy 152.3 ml/min; Est GFR (African American) 121.5 ml/min; Est GFR (Non-African American) 104.8 ml/min; Potassium 3.8 mmol/L (3.5-5.1)
[2021-02-09] MEDS: FUROSEMIDE 40 MG TAB PO SCH (09:22)
[2021-02-09] MEDS: FLUTICASONE PROPIONATE NA SPR 16 GM BTL SCH ×2 (09:22→20:35)
[2021-02-09] MEDS: ATORVASTATIN 40 MG TAB PO SCH (09:22)
[2021-02-09] MEDS: CLOPIDOGREL BISULFATE 75 MG TAB PO SCH (09:22)
[2021-02-09] MEDS: RIVAROXABAN 10 MG TABLET PO SCH (09:23)
[2021-02-09] MEDS: INSULIN GLARGINE SOLOSTAR 100 UNITS/ML 3 ML PEN SC SCH ×2 (09:25→20:35)
[2021-02-09] MEDS: INSULIN ASPART 100 UNITS/ML 3 ML PEN SC SCH ×4 (09:26→20:36)
[2021-02-09] MEDS: metFORMIN HCL 500 MG TAB PO SCH (13:06)
[2021-02-09] MEDS ORDERED: FUROSEMIDE 40 MG TAB PO ONE (16:00)
--- NOTE | 2021-02-09 16:13 | XRay Report ---
XR chest 1V portable HISTORY: 65 years-old Male recent COVID, interval change acute shortness of breath. COMPARISON: Chest radiograph 01/27/2021 TECHNIQUE: Portable AP view the chest FINDINGS: Cardiac silhouette is enlarged. Moderately improved aeration of the lungs. Persistent bilateral retic ular densities with ill-defined airspace opacities within a peripheral predominant distribution. No p neumothorax or large pleural effusion. Degenerative changes of the shoulders and spine. IMPRESSION: Cardiomegaly with moderately improved bilateral pulmonary opacities suggestive of resolvi ng pneumonia. ACT 112: Negative or not required by law. The above report was generated using voice recognition software. It may contain grammatical, syntax o r spelling errors. Electronically signed by: Junior Jansen M.D. 02/09/2021 4:12 PM
--- NOTE | 2021-02-09 21:49 | Hospitalist Progress Note ---
Date of Service February 09, 2021 Assessment & Plan (1) Pneumonia due to COVID-19 virus: Plan: Severe earlier this stay. Peak HFNC requirement was 40 L. He was on HFNC at large settings for 2+ weeks. Weaned to "wall-mounted" high-flow on 02/03/21. Down to 3 L. Completed a 10-day course of dexamethasone 6 mg daily. Remdesivir course completed 01/19. Azithromycin course completed on 01/21. Tocilizumab was not indicated. 2-step on 02/05 -- failed as the patient desaturated despite 9L NC and could not complete test. 2-step today - needed >6L with activity to maintain O2 sats above 88% Cont pulmonary toilet, etc Last CRP 1.5. Peak 7.7. routine labs in am. will attempt 2-step again tomorrow (2) Acute respiratory failure with hypoxia: Plan: 2nd #1 - slowly improving as above repeat a cxr today to ensure no other process contributing to hypoxia but suspect it will simply show clearing pneumonia (3) CVA (cerebral vascular accident): Plan: MRI-confirmed L periventricular stroke. However, right-sided weakness (arm/hand) IMPROVING/near normal today. Course -- On the evening of 01/24/21 developed acute onset of right upper extremity weakness and right sided facial droop. Stroke alert was called. CT head with 6 mm left shelton radiata hyperdensity (hemorrhage versus calcification, no old imaging to compare to). Telestroke neurologist recommended holding Lovenox, no antiplatelets, repeat CT head the following day to reassess for hemorrhage. CT angiogram head and neck with left 65% LICA stenosis at the proximal cervical segment and right less than 50% stenosis of proximal right ICA. 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 Repeat CT head 01/25 negative for hemorrhage. Echo w/o thrombus or shunt/PFO. Remains on Plavix 75 mg p.o. once daily for secondary stroke prevention. Remains on lipitor 40mg daily. Cause of stroke - enhanced thrombotic risk from COVID-19 infection in the setting of other stroke risk factors including HTN, T2DM, obesity, abnormal lipids (low HDL, etc). Post-d/c will advise 30-day event monitor to r/o PAF as cause of CVA. (4) Diabetes mellitus: Plan: Uncontrolled earlier this admission but much improved off steroids. Hemoglobin A1c 9.3% Holding home metformin and Jardiance while admitted, resume on discharge May need lantus once daily at discharge depending on BSGs Cont lantus BID Cont novolog (5) Hypertension: Plan: BPs controlled OFF of his usual NICOLLE & norvasc Remains on lasix to keep negative fluid balance (40mg daily) Will give additional dose of lasix today (peripheral edema) in afternoon (6) Morbid obesity with BMI of 40.0-44.9, adult: Plan: BMI 40 much of his stay now 38 (7) Hypokalemia: Plan: resolved (8) Diarrhea: Plan: resolved likely abx-associated and/or due to COVID itself (9) DVT prophylaxis: Plan: xarelto 10mg daily (had been refusing lovenox) plan 30 days of xarelto post-d/c for DVT proph (10) Carotid stenosis: Plan: plavix statin will need annual surveillance of this issue (11) Tachycardia: Plan: recent EKG - sinus tach with ectopy in light of COVID, lower dose lovenox previously (40mg daily), and refusing the lovenox -- consider CTA chest r/o PE - if tachycardia persists check a TSH repeat CBC in am Plan: updated pt's Liliam 02/07, 02/08, 02/09 Admission and Anticipated Discharge Date Admission Date: January 15, 2021 Subjective patient very despondent today he did not pass 2-step test this am and is very frustrated we spent most of the visit discussing his feelings he wants to see his frustrated that she can't visit doesn't understand why things won't speed up so he can leave no other changes in health overnight Review of Systems Review of Systems: gen - energy and appetite are good, no fevers CV - no chest pain pulm - no dyspnea at rest; mild SALAS (no change) CV - no N/V Physical Exam Physical Exam: Gen: obese, NAD, no distress; frustrated today HEENT: MMM Neck: no JVD Heart: mild tachycardia, s1 s2, extra beats, no murmur Lungs: minimal bibasilar rales Abd: soft NT ND BS+ Ext: <1+ edema, pulses 2+ b/l Neuro: handgrip R near 5/5; L 5/5; rapid movements of right hand near normal today Psych: a/o x 3, frustrated Results & Data Results & Data ([facility]) Vital Signs (Past 12 Hours) Vital Signs Temp Pulse Pulse Pulse Pulse Pulse Pulse 02/09/21 20:45 02/09/21 17:10 36.5 C 02/09/21 16:15 02/09/21 16:13 02/09/21 10:29 101 H 103 H 113 H 106 H 114 H 116 H Pulse Pulse Pulse Resp Resp Resp Resp 02/09/21 20:45 02/09/21 17:10 103 H 20 02/09/21 16:15 02/09/21 16:13 02/09/21 10:29 106 H 101 H 22 22 28 H Resp Resp Resp Resp Resp BP Pulse Ox 02/09/21 20:45 84 L 02/09/21 17:10 136/80 94 02/09/21 16:15 91 02/09/21 16:13 80 L 02/09/21 10:29 28 H 28 H 26 H 24 22 Pulse Ox Pulse Ox Pulse Ox Pulse Ox Pulse Ox Pulse Ox Pulse Ox 02/09/21 20:45 02/09/21 17:10 02/09/21 16:15 02/09/21 16:13 02/09/21 10:29 88 L 90 84 L 84 L 86 L 86 L 88 L Pulse Ox 02/09/21 20:45 02/09/21 17:10 02/09/21 16:15 02/09/21 16:13 02/09/21 10:29 88 L Laboratory Results Laboratory Results - last 24 hr 02/09/21 02/09/21 02/09/21 07:40 08:35 12:34 Sodium 138 Potassium 3.8 Chloride 103 Carbon Dioxide 30 Anion Gap 4.0 BUN 15 Creatinine 0.61 Est Cr Clr Drug Dosing 152.3 Est GFR ( Amer) 121.5 Est GFR (Non-Af Amer) 104.8 BUN/Creatinine Ratio 24.3 H Glucose 165 H POC Glucose 201 H 142 H Calcium 8.9 02/09/21 02/09/21 17:43 20:34 Sodium Potassium Chloride Carbon Dioxide Anion Gap BUN Creatinine Est Cr Clr Drug Dosing Est GFR ( Amer) Est GFR (Non-Af Amer) BUN/Creatinine Ratio Glucose POC Glucose 126 H 150 H Calcium PG Care Time/CCT Total # of Minutes Spent Total Time Spent with Patient: Total time spent is greater than 50% in coordination of care (as documented) at patient's floor/unit and/or counseling patient: Coding Level of Care Code 82701 Subseq Hosp Care Lvl 2 Diagnoses Pneumonia due to COVID-19 virus U07.1; J12.82 Acute respiratory failure with hypoxia J96.01 CVA (cerebral vascular accident) I63.9 Diabetes mellitus E11.9 Hypertension I10 Morbid obesity with BMI of 40.0-44.9, adult E66.01; Z68.41 Hypokalemia E87.6 Diarrhea R19.7 DVT prophylaxis Z29.9 Carotid stenosis I65.29 Tachycardia R00.0
[2021-02-10 06:40] LABS: Hematocrit (blood only) 39.1 % (42-52); Hemoglobin 12.9 g/dL (14.0-18.0); Mean Corpuscular Hemoglobin 28.7 pg (25-34); Mean Corpuscular Volume 87.1 fL (80-100); Mean Platelet Volume 9.4 fL (7.4-10.4); Platelet Count 243 K/uL (130-400); RDW Coefficient of Variation 13.6 % (11.5-14.5); RDW Standard Deviation 43.2 fL (36.4-46.3); Red Blood Count 4.49 M/uL (4.7-6.1); White Blood Count 7.45 K/uL (4.8-10.8)
[2021-02-10 07:04] LABS: BUN Creatinine Ratio 25.6 (10-20); Calcium 8.9 mg/dl (8.5-10.1); Creatinine Clr Calc Pharmacy 123.9 ml/min; Est GFR (African American) 111.6 ml/min; Est GFR (Non-African American) 96.3 ml/min; Potassium 3.7 mmol/L (3.5-5.1)
[2021-02-10 07:14] LABS: Thyroid Stimulating Hormone 1.63 uIu/ml (0.300-4.500)
[2021-02-10] MEDS: ACETAMINOPHEN 325 MG TAB PO PRN (08:38)
[2021-02-10] MEDS: FUROSEMIDE 40 MG TAB PO SCH (08:40)
[2021-02-10] MEDS: CLOPIDOGREL BISULFATE 75 MG TAB PO SCH (08:40)
[2021-02-10] MEDS: metFORMIN HCL 500 MG TAB PO SCH (08:40)
[2021-02-10] MEDS: ATORVASTATIN 40 MG TAB PO SCH (08:40)
[2021-02-10] MEDS: RIVAROXABAN 10 MG TABLET PO SCH (08:40)
[2021-02-10] MEDS: FLUTICASONE PROPIONATE NA SPR 16 GM BTL SCH ×2 (08:41→20:44)
[2021-02-10] MEDS: INSULIN ASPART 100 UNITS/ML 3 ML PEN SC SCH ×4 (09:36→20:44)
[2021-02-10] MEDS: INSULIN GLARGINE SOLOSTAR 100 UNITS/ML 3 ML PEN SC SCH ×2 (09:38→20:43)
--- NOTE | 2021-02-10 20:43 | Hospitalist Progress Note ---
Date of Service February 10, 2021 Assessment & Plan (1) Pneumonia due to COVID-19 virus: Plan: Severe earlier this stay. Peak HFNC requirement was 40 L. He was on HFNC at large settings for 2+ weeks. Weaned to "wall-mounted" high-flow on 02/03/21. Now down to 3L NC o2. Completed a 10-day course of dexamethasone 6 mg daily. Remdesivir course completed 01/19. Azithromycin course completed on 01/21. Tocilizumab was not indicated. 2-step on 02/05 -- failed as the patient desaturated despite 9L NC and could not complete test. 2-step yesterday - needed >6L with activity to maintain O2 sats above 88% nursing staff walked patient today -- with 6 liters he was only 88% at best. Cont pulmonary toilet, etc Last CRP 1.5. Peak 7.7. routine labs today wnl. will attempt 2-step again tomorrow. I reassured patient we are very close to discharge. (2) Acute respiratory failure with hypoxia: Plan: 2nd #1 - slowly improving/slowly resolving as above cxr yesterday - considerable clearing of pneumonic infiltrates vs previous (3) CVA (cerebral vascular accident): Plan: MRI-confirmed L periventricular stroke. However, right-sided weakness (arm/hand) IMPROVING/near normal today. Course -- On the evening of 01/24/21 developed acute onset of right upper extremity weakness and right sided facial droop. Stroke alert was called. CT head with 6 mm left shelton radiata hyperdensity (hemorrhage versus calcification, no old imaging to compare to). Telestroke neurologist recommended holding Lovenox, no antiplatelets, repeat CT head the following day to reassess for hemorrhage. CT angiogram head and neck with left 65% LICA stenosis at the proximal cervical segment and right less than 50% stenosis of proximal right ICA. 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 Repeat CT head 01/25 negative for hemorrhage. Echo w/o thrombus or shunt/PFO. Remains on Plavix 75 mg p.o. once daily for secondary stroke prevention. Remains on lipitor 40mg daily. Cause of stroke - enhanced thrombotic risk from COVID-19 infection in the setting of other stroke risk factors including HTN, T2DM, obesity, abnormal lipids (low HDL, etc). Post-d/c recommend 30-day event monitor to r/o PAF as cause of CVA. Patient did not have formal neurology consultation while hospitalized. Would send to [facility] neuro post-discharge to follow him. Right hand weakness & apraxia are MUCH IMPROVED. (4) Diabetes mellitus: Plan: Uncontrolled earlier this admission but much improved off steroids. Hemoglobin A1c 9.3% Resumed metformin May need lantus once daily at discharge depending on BSGs Cont lantus BID Cont novolog (5) Hypertension: Plan: BPs controlled OFF of his usual NICOLLE & norvasc Remains on lasix to keep negative fluid balance (40mg daily) Gave additional dose of lasix yesterday with stable BMP (6) Morbid obesity with BMI of 40.0-44.9, adult: Plan: BMI 40 much of his stay now 38 (7) Hypokalemia: Plan: resolved (8) Diarrhea: Plan: resolved likely abx-associated and/or due to COVID itself (9) DVT prophylaxis: Plan: xarelto 10mg daily (had been refusing lovenox) plan 30 days of xarelto post-d/c for DVT proph - he is very high risk of post- discharge VTE (10) Carotid stenosis: Plan: plavix statin will need annual surveillance of this issue CTA neck - * 65% stenosis of the proximal cervical segment left ICA. * <50% stenosis of the proximal right ICA. (11) Tachycardia: Plan: recent EKG - sinus tach with ectopy in light of COVID, lower dose lovenox previously (40mg daily), and refusing the lovenox -- consider CTA chest r/o PE - only if tachycardia persists TSH wnl H/H stable/acceptable Plan: updated pt's Liliam 02/07, 02/08, 02/09 left message for pt's on her voicemail 02/10 we are closer and closer to discharge Admission and Anticipated Discharge Date Admission Date: January 15, 2021 Subjective pt w/o any new complaints feeling good excellent appetite no cough in several days SALAS when he walks in hallway only he is anxious to go home I had staff walk him in hallway on 6 L NC O2 -- highest O2 sat w/ such was 88% per nursing Review of Systems Review of Systems: gen - no fevers, chills, anorexia CV - no cp, no orthopnea pulm - no cough, no wheeze GI - no N/V/D/abd pain Physical Exam Physical Exam: Gen: obese, NAD, no distress; looks great HEENT: MMM Neck: no JVD Heart: no tachycardia today; s1 s2, irregular (extra beats), no murmur Lungs: minimal bibasilar rales, o/w CTA b/l Abd: soft NT ND BS+ Ext: trace edema b/l, pulses 2+ b/l Neuro: handgrip R 5/5 today; L 5/5; rapid movements of right hand essentially normal today Psych: a/o x 3, frustrated he is still here Results & Data Results & Data ([facility]) Vital Signs (Past 12 Hours) Vital Signs Temp Pulse Resp BP Pulse Ox 02/10/21 15:29 36.6 C 92 H 24 129/75 91 02/10/21 15:26 88 L Laboratory Results Laboratory Results - last 24 hr 02/10/21 02/10/21 02/10/21 06:03 06:03 08:29 WBC 7.45 RBC 4.49 L Hgb 12.9 L Hct 39.1 L MCV 87.1 MCH 28.7 MCHC 33.0 RDW Std Deviation 43.2 RDW Coeff of Carmela 13.6 Plt Count 243 MPV 9.4 Sodium 139 Potassium 3.7 Chloride 104 Carbon Dioxide 30 Anion Gap 5.0 BUN 19 H Creatinine 0.75 Est Cr Clr Drug Dosing 123.9 Est GFR ( Amer) 111.6 Est GFR (Non-Af Amer) 96.3 BUN/Creatinine Ratio 25.6 H Glucose 131 H POC Glucose 145 H Calcium 8.9 TSH 1.630 02/10/21 02/10/21 02/10/21 12:15 17:11 20:37 WBC RBC Hgb Hct MCV MCH MCHC RDW Std Deviation RDW Coeff of Carmela Plt Count MPV Sodium Potassium Chloride Carbon Dioxide Anion Gap BUN Creatinine Est Cr Clr Drug Dosing Est GFR ( Amer) Est GFR (Non-Af Amer) BUN/Creatinine Ratio Glucose POC Glucose 152 H 142 H 109 H Calcium TSH PG Care Time/CCT Total # of Minutes Spent Total Time Spent with Patient: Total time spent is greater than 50% in coordination of care (as documented) at patient's floor/unit and/or counseling patient: Coding Level of Care Code 14499 Subseq Hosp Care Lvl 2 Diagnoses Pneumonia due to COVID-19 virus U07.1; J12.82 Acute respiratory failure with hypoxia J96.01 CVA (cerebral vascular accident) I63.9 Diabetes mellitus E11.9 Hypertension I10 Morbid obesity with BMI of 40.0-44.9, adult E66.01; Z68.41 Hypokalemia E87.6 Diarrhea R19.7 DVT prophylaxis Z29.9 Carotid stenosis I65.29 Tachycardia R00.0
[2021-02-11] MEDS: FUROSEMIDE 40 MG TAB PO SCH (07:45)
[2021-02-11] MEDS: ACETAMINOPHEN 325 MG TAB PO PRN (07:45)
[2021-02-11] MEDS: RIVAROXABAN 10 MG TABLET PO SCH (07:46)
[2021-02-11] MEDS: ATORVASTATIN 40 MG TAB PO SCH (07:46)
[2021-02-11] MEDS: CLOPIDOGREL BISULFATE 75 MG TAB PO SCH (07:46)
[2021-02-11] MEDS: FLUTICASONE PROPIONATE NA SPR 16 GM BTL SCH (07:47)
[2021-02-11] MEDS ORDERED: metFORMIN HCL 500 MG TAB PO SCH (08:00)
[2021-02-11] MEDS: INSULIN GLARGINE SOLOSTAR 100 UNITS/ML 3 ML PEN SC SCH (09:05)
[2021-02-11] MEDS: INSULIN ASPART 100 UNITS/ML 3 ML PEN SC SCH ×2 (09:06→14:14)
[2021-02-11] MEDS ORDERED: NURSING DECISION MEDICATION ONE (09:09)
[2021-02-11] MEDS ORDERED: COUGH DROP (SUGAR FREE) LOZ 24 LOZ/1 BOX BUCCAL PRN (09:15)
[2021-02-11] MEDS ORDERED: STROKE PATIENT DISCHARGE STA (13:03)
--- NOTE | 2021-02-11 13:15 | Discharge Summary ---
Date of Service February 11, 2021 Admission HPI Per Admitting Provider The patient is a 65-year old male the past history of hypertension, diabetes mellitus and morbid obesity who presents to the emergency department with the above symptoms. He also reports an unspecified weight loss during this time of decreased appetite. He denies loss of taste or smell. 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 Work-up in the emergency department included the following abnormalities: Pulse ox on room air 84%, that increased to 93% on 7 L oxymask. Chest x-ray was consistent with multifocal pneumonia Glucose was 329, potassium 3.9, albumin 3.2. Patient was COVID-19 positive. Patient did not receive vaccine for COVID-19 He received from the ED dexamethasone 10 mg IV, and regular insulin 10 units IV. Principal Diagnosis COVID 19 pneumonia with acute hypoxic respiratory failure Acute ischemic stroke Discharge Exam General: well developed, well nourished, obese male, comfortable Neck: supple, trachea midline, normal thyroid Lungs: lungs clear, normal effort, no accessory muscle use, no wheezing Heart: regular S1 and S2, no murmur, peripheral pulses normal, capillary refill normal, no edema Abdomen: soft, NT, ND, + BS, no hepatomegaly, normal to percussion Extremities: normal in appearance, no cyanosis, no petechiae, decreased strength right UE Neuro: awake, cooperative, moves all extremities, no focal motor deficits, CN II-XII intact, sensation in extremities intact, normal speech Skin: warm, dry, no rash, normal turgor Psych: Awake, alert oriented x 3, euthymic affect Discharge Data Allergies Allergy/AdvReac Type Severity Reaction Status Date / Time No Known Allergies Allergy Unverified 02/07/21 14:00 Consultations 01/15/21 04:35 ED Decision to Admit Stat Ordered Studies 01/24/21 18:05 CT head/brain wo con Stat 01/24/21 18:29 CT angio head w con Stat CT angio neck with con Stat 01/25/21 12:00 CT head/brain wo con Routine 02/05/21 16:41 MR brain wo con Routine Diabetes Follow up Diabetes Follow-up Needed for HgbA1c >9% Hospital Course (1) Pneumonia due to COVID-19 virus: Severe earlier this stay. Peak HFNC requirement was 40 L. He was on HFNC at large settings for 2+ weeks. Weaned to "wall-mounted" high-flow on 02/03/21. Now down to 3L NC at rest, 6L on exertion, arranged for home oxygen Completed a 10-day course of dexamethasone 6 mg daily. Remdesivir course completed 01/19. Azithromycin course completed on 01/21. Tocilizumab was not indicated. Last CRP 1.5. Peak 7.7. (2) Acute respiratory failure with hypoxia: 2nd #1 - slowly improving/slowly resolving as above most recent CXR - considerable clearing of pneumonic infiltrates vs previous (3) CVA (cerebral vascular accident): MRI-confirmed L periventricular stroke. However, right-sided weakness (arm/hand) IMPROVING/near normal today. Course -- On the evening of 01/24/21 developed acute onset of right upper extremity weakness and right sided facial droop. Stroke alert was called. CT head with 6 mm left shelton radiata hyperdensity (hemorrhage versus calcification, no old imaging to compare to). Telestroke neurologist recommended holding Lovenox, no antiplatelets, repeat CT head the following day to reassess for hemorrhage. CT angiogram head and neck with left 65% LICA stenosis at the proximal cervical segment and right less than 50% stenosis of proximal right ICA. 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 Repeat CT head 01/25 negative for hemorrhage. Echo w/o thrombus or shunt/PFO. Remains on Plavix 75 mg p.o. once daily for secondary stroke prevention. Remains on lipitor 40mg daily. Cause of stroke - enhanced thrombotic risk from COVID-19 infection in the setting of other stroke risk factors including HTN, T2DM, obesity, abnormal lipids (low HDL, etc). Post-d/c recommend 30-day event monitor to r/o PAF as cause of CVA. Patient did not have formal neurology consultation while hospitalized. Would send to [facility] neuro post-discharge to follow him. Right hand weakness & apraxia are MUCH IMPROVED. (4) Diabetes mellitus: Uncontrolled earlier this admission but much improved off steroids. Hemoglobin A1c 9.3% Resumed metformin May need lantus once daily at discharge depending on BSGs Cont lantus BID Cont novolog (5) Hypertension: BPs controlled OFF of his usual NICOLLE & norvasc Remains on lasix to keep negative fluid balance (40mg daily) Gave additional dose of lasix yesterday with stable BMP (6) Morbid obesity with BMI of 40.0-44.9, adult: BMI 40 much of his stay now 38 (7) Hypokalemia: resolved (8) Diarrhea: resolved likely abx-associated and/or due to COVID itself (9) DVT prophylaxis: xarelto 10mg daily (had been refusing lovenox) plan 30 days of xarelto post-d/c for DVT proph - he is very high risk of post- discharge VTE (10) Carotid stenosis: plavix statin will need annual surveillance of this issue CTA neck - * 65% stenosis of the proximal cervical segment left ICA. * <50% stenosis of the proximal right ICA. (11) Tachycardia: recent EKG - sinus tach with ectopy in light of COVID, lower dose lovenox previously (40mg daily), and refusing the lovenox -- consider CTA chest r/o PE - only if tachycardia persists TSH wnl H/H stable/acceptable updated pt's Liliam 02/07, 02/08, 02/09 left message for pt's on her voicemail 02/10 we are closer and closer to discharge Total Time Total Time Spent Total Time Spent (In Minutes): 32 minutes Total Time Includes: Examination of the Patient, Discharge Planning and Medication Reconciliation Discharge Plan Discharge Items Patient Disposition: Home - Self-Care Reason For Visit: COVID 19 PNEUMONIA WITH HYPOXIA Discharge Diagnosis: COVID 19 pneumonia Acute hypoxic respiratory failure Acute ischemic stroke Condition on Discharge: Good Goals: improve strength and mobility stay well nourished titrate down off oxygen as tolerated Activity: Resume your previous activity Driving/Machine Use: need cleared by PCP, anticipate 1-2 weeks Weightbearing: Full weightbearing Non-emergency contact: Primary Care Provider Call non-emergency contact if: you have any medication questions and your symptoms worsen Follow-up/Referrals: Arthur Ibrahim MD [Physician] - 08/23/21 10:30 am (6-8 weeks, for ischemic stroke. Office will call if they have any cancellations.) Sandie Dudley MD [Physician] - 03/15/21 8:45 am (4-6 weeks, follow up severe COVID, hypoxemia) Candy Buck PA-C [Primary Care Provider] - 02/08/21 2:00 pm (APPT WITH LAURA DENNIS PA-C) Diet: Carb Consistent or DM2 Addtl Attending Provider Instructions: Medications: - PLAVIX: 75mg daily for stroke prevention - XARELTO: 10mg daily for 30 more days to help prevent blood clots associated with COVID 19 infection - LASIX: 20mg daily - ATORVASTATIN: 40mg daily to help prevent strokes, this is proven to lower risk of future stroke COVID 19 pneumonia completed extended course of steroids, slowly coming down on oxygen requirements recommend trying to titrate back oxygen, currently you need 3L at rest and 6L on exertion recommend follow up with pulmonology, will make a referral take Xarelto for 30 days to help reduce risk of blood clots associated with COVID 19 Acute ischemic stroke, caused right hand weakness, difficulty speaking MRI brain did show a small ischemic stroke recommend follow up with neurology will be on Plavix and Lipitor will need to get 30 day heart monitor to look for afib as outpatient blood pressure has been well controlled off of medications for about a month now, continue to hold continue to follow low carbohydrate diet and control blood sugars to reduce risk of future stroke Risk Factors for Stroke: You can reduce your chances of stroke by working with your medical provider to adopt a healthy lifestyle. Some specific ways to lower your chance of stroke are: * If you are a smoker, now is the time to stop smoking cigarettes * If you are diabetic, improve the control of your blood sugars * Avoid excessive amounts of alcohol * Control high blood pressure * Lose weight if you are overweight * Be sure to lead an active lifestyle * Eat a healthy diet low in salt, cholesterol and fat You should know about other risk factors for stroke that you are unable to control. These include: * Age 55 years or older * Male gender * Certain racial groups: , or / * Family History of Stroke, Mini stroke or Heart Attack * Sickle Cell Disease Follow Up: It is important for you to keep your follow up appointments with your medical provider. Who to Call and When: Medical Emergencies: Call 911 immediately if you experience any of the following warning signs and symptoms of Stroke: * Sudden numbness or weakness of the face, arm or leg, especially on one side of the body * Sudden confusion, trouble speaking or understanding * Sudden trouble seeing in one or both eyes * Sudden trouble walking, dizziness, loss of balance or coordination * Sudden severe headache with no cause Do not delay calling 911 if you experience any warning signs or symptoms of a stroke. Delay in seeking medical attention may affect what treatments can be given to you. . Pending Studies at Discharge: No Stand-Alone Forms: Medications to Prevent Stroke, My [facility], Smoking Cessation Medications and DC Order Prescriptions: New atorvastatin 40 mg Tablet 40 mg PO QAM 30 Days Qty: 30 RF: 3 clopidogrel 75 mg Tablet 75 mg PO QAM 30 Days Qty: 30 RF: 3 Xarelto 10 mg Tablet 10 mg PO DAILY 30 Days Qty: 30 RF: 0 furosemide [Lasix] 20 mg tablet 20 mg PO DAILY Qty: 30 RF: 3 Continued metformin 500 mg tablet extended release 24 hr 1,000 mg PO DAILY RF: 0 Jardiance 25 mg tablet 25 mg PO DAILY RF: 0 Discontinued amlodipine 5 mg tablet 5 mg PO DAILY RF: 0 lisinopril 40 mg tablet 40 mg PO DAILY RF: 0 Discharge Orders: Discharge Order (Routine); Ordered 02/11/21 Ordered By: Dimitris Valerio Admission Data Admit Date/Time: 01/15/21 05:33 Attending Provider: Dimitris Valerio Admit Provider: Sukhdeep Chong Primary Care Provider: Candy Buck Other Providers: Reji Lang Other Interventions: Discharge Summary Assessment (RN) Last Done: 02/11/21 15:16 Coding Level of Care Code D/C DAY MANAGEMENT >30 MINS Diagnoses Pneumonia due to COVID-19 virus U07.1; J12.82 Acute respiratory failure with hypoxia J96.01 CVA (cerebral vascular accident) I63.9 Diabetes mellitus E11.9 Hypertension I10 Morbid obesity with BMI of 40.0-44.9, adult E66.01; Z68.41 Hypokalemia E87.6 Diarrhea R19.7 DVT prophylaxis Z29.9 Carotid stenosis I65.29 Tachycardia R00.0
--- NOTE | 2021-02-11 13:49 | Pharmacy Report ---
Pharmacist Stroke Counseling - Date of Service February 11, 2021 - Scope: Pharmacy has been consulted to provide medication discharge counseling for this patient admitted with ischemic stroke as per the Pharmacist Discharge Counseling for Stroke Patients Protocol. - Medications on Discharge: Home Medications Medication Instructions Recorded Confirmed amlodipine 5 mg tablet 5 mg PO DAILY 01/15/21 01/15/21 empagliflozin 25 mg tablet 25 mg PO DAILY 01/15/21 01/15/21 (Jardiance) lisinopril 40 mg tablet 40 mg PO DAILY 01/15/21 01/15/21 metformin 500 mg tablet,extended 1,000 mg PO DAILY 01/15/21 01/15/21 release 24 hr New Rx's Medication Instructions Recorded atorvastatin 40 mg tablet 40 mg PO QAM 30 Days #30 tab 02/11/21 clopidogrel 75 mg tablet 75 mg PO QAM 30 Days #30 tab 02/11/21 furosemide 20 mg tablet (Lasix) 20 mg PO DAILY #30 tab 02/11/21 rivaroxaban 10 mg tablet (Xarelto) 10 mg PO DAILY 30 Days #30 tab 02/11/21 - Action: The above medications, specifically ones for stroke treatment/prophylaxis, have been reviewed in detail with the patient and/or patient textiles sales representative(s) prior to discharge. This includes indication, common adverse reactions, drug interactions, and medication administration. Medication counseling has been employed using the teach-back method to ensure understanding. - Outcome: The patient and/or patient textiles sales representative(s) have demonstrated understanding of the medications. Additional comments: * Spoke with patient via phone prior to discharge to review medications * Patient confirms he was taking "4" medications prior to admission. He understands that HTN medications have been D/C'd due to BP controlled without any medications; he understands not to take amlodipine or lisinopril when he goes home. He reports taking Jardiance and metformin. Diabetes appears uncontrolled, understands to continue to take these medications. * Patient had acute stroke related to COVID. Explained indication for new Plavix and Lipitor. Counseled for potential adverse effects * Told patient he was given Xarelto as a prevention medication for 1 month due to COVID incr' risk for blood clots. Informed him that he would be eligible for a free month supply of Xarelto if cost is high - he can get coupon from event specialist or have nursing call Case Management. He is unsure whether or not he is having issues with edema, but is aware that he is to take furosemide 20mg daily for swelling. * Patient sounds like he has a lot of questions and appears unclear about his medications. Recommend he bring discharge papers and medication bottles to his PCP f/u for review. Thank you for allowing pharmacy to be involved in the care of this patient. Please call [phone] with any additional questions
--- NOTE | 2021-02-19 07:50 | Coding Query ---
CODING QUERY To promote full compliance with coding requirements relating to patient care, provider participation is requested in all cases of subgrade tester uncertainty. Please assist us with the question(s) below: Coding Question(s): Pt admitted with COVID 19 Pneumonia. 01/24 CVA onset with facial droop and RUE weakness. Progress notes state ischemic stroke. Discharge Summary states "stroke- enhanced thrombotic risk with COVID 19". Seeking to clarify type of stroke (thrombotic, embolic , et.) Please check below the phrase that describes the type of stroke if known or suspected. Thanks for your help. Spike De La Cruz [facility] Physician's Response(s): ____x____ Patient had an ischemic stroke, Not otherwise specified Patient had thrombotic stroke Cannot clinically correlate the type of stroke patient had during this IP stay Other Please document: Principal Diagnosis: "that condition established after study, to be chiefly responsible for occasioning the admission of the patient to the hospital for care." Co-Existing Principal Diagnosis: "when two or more diagnoses equally meet the criteria for principal diagnosis as determined by the circumstances of admission, diagnostic work up, and/or therapy provided, and the Alphabetic Index, Tabular List, or another coding guideline does not provide sequencing direction, any one of the diagnoses may be sequenced first." "When the physician has documented what appears to be a current diagnosis in the body of the record, but has not included the diagnosis in the final diagnostic statement, the physician should be asked whether the diagnosis should be added." (Source Coding Clinic 2 QTR90. p3-4) BARBD
== END 2021-02-11 16:00 | disposition home or self-care (01) | DRG 177 ==
LOC: ED 00:51 → 2E 05:33 → SUATTDRO 05:33 → 2E 08:08 → 2S 01-31 23:09 → 3W 02-03 18:43